=== PATIENT | female | born 1955 | race Caucasian/White ===

== ENCOUNTER 2017-06-11 05:34 | Observation (INO) | payer OTHER ==
[2017-06-02 11:40] VITALS: BMI 50.7
[2017-06-11 06:29] LABS: #Eosinphils 0.1 thou/uL (0.0-0.7); #Lymphocytes 1.6 thou/uL (1.20-3.40); #Monocytes 0.6 thou/uL (0.11-0.59); #Neutrophils 8.6 thou/uL (1.40-6.50); %Basophils 0.3 % (0.0-1.0); %Lymphocytes 14.7 % (21.0-51.0); %Monocytes 5.3 % (0.0-10.0); %Neutrophils 78.7 % (42.0-75.0); Hemoglobin 10.5 g/dL (12.0-16.0); Mean Corpuscular HGB CONC 32.6 g/dL (32.0-36.0); Mean Corpuscular Hemoglobin 29.7 pg (27.0-31.0); Mean Corpuscular Volume 91.2 fl (81.0-99.0); Mean Platelet Volume 8.9 fL (7.4-10.4); Platelet Count 174 thou/uL (130-400); RBC Distribution Width 13.5 % (11.5-14.5); Red Blood Cell (RBC) Count 3.55 mill/uL (4.20-5.40)
[2017-06-11] MEDS ORDERED: Diazepam 5 MG TAB ONE (06:30)
[2017-06-11 06:51] LABS: ALT (SGPT) 16 U/L (8-55); AST (SGOT) 12 U/L (5-34); Albumin 3.6 g/dL (3.5-5.0); Alkaline Phosphatase 98 U/L (40-150); Anion Gap 16 mmol/L (10-20); BUN (Urea Nitrogen) 37 mg/dL (9.8-20.1); Bilirubin, Total 0.4 mg/dL (0.2-1.2); Calc. Creatinine Clearance 103 mL/min (70-130); Calcium 9.4 mg/dL (7.8-10.44); Carbon Dioxide 22 mmol/L (22-29); Cardiac Risk 3.9 (Less than 4.5); Chloride 106 mmol/L (98-107); Cholesterol 93 mg/dl (< 200 Desired); Estimated GFR-MDRD 44; Globulin 3.9 g/dL (2.4-3.5); Glucose 114 mg/dL (70-105); HDL Cholesterol 24 mg/dL (>60 Neg Risk); LDL Cholesterol, Calculated 50 mg/dL; Potassium 4.1 mmol/L (3.5-5.1); Protein, Total 7.5 g/dL (6.0-8.3); Sodium 140 mmol/L (136-145); Triglycerides 97 mg/dL (Less than 150)
[2017-06-11] MEDS ORDERED: Nitroglycerin 100MG/250ML BOT 250 ML ONE (06:54)
[2017-06-11] MEDS ORDERED: Verapamil 5 MG/2 ML VIAL ONE (06:54)
[2017-06-11] MEDS ORDERED: Heparin 10,000 UNITS/1 ML VIAL ONE (06:54)
[2017-06-11] MEDS ORDERED: Midazolam HCl 2 mg/2 ml Vial ONE (07:31)
[2017-06-11] MEDS ORDERED: Fentanyl 100 MCG/2 ML VIAL ONE (07:37)
[2017-06-11] MEDS ORDERED: traMADol HCl 50 MG TAB PO PRN (08:38)
[2017-06-11] MEDS ORDERED: Sodium Chloride 0.9% 1,000 ML IV SCH (08:38)
[2017-06-11] MEDS ORDERED: Nitroglycerin 0.4 MG TAB (25 Tab Bottle) SL PRN (08:38)
[2017-06-11] MEDS ORDERED: Acetaminophen/Codeine 30-300mg Tablet PO PRN ×2 (08:38)
[2017-06-11] MEDS ORDERED: Ibuprofen 800 MG TAB PO PRN (08:44)
[2017-06-11] MEDS ORDERED: cloNIDine 0.1 MG TAB PO SCH (09:00)
[2017-06-11] MEDS ORDERED: JANUMET PO SCH (09:00)
[2017-06-11] MEDS ORDERED: Metoprolol Tartrate 25 MG TAB PO SCH (09:00)
[2017-06-11] MEDS ORDERED: Furosemide 80 MG TAB PO SCH (09:00)
[2017-06-11] MEDS ORDERED: Lisinopril 2.5 MG TAB PO SCH (09:00)
[2017-06-11 09:10] LABS: INR-International Normal Ratio 1.2; Prothrombin Time 15.2 SEC (12.0-14.7)
[2017-06-11 09:11] LABS: PTT 42.3 SEC (22.9-36.1)
[2017-06-11] MEDS ORDERED: Iopamidol 370 76% 100 ML VIAL ONE (11:44)
--- NOTE | 2017-06-11 12:47 | ULT ---
ULTRASOUND CAROTID DOPPLER STANDARD: HISTORY: Bilateral carotid ultrasound. Stroke. COMPARISON: None. TECHNIQUE: Real-time, viveros scale, color Doppler, and spectral analysis of the extracranial carotid and vertebral arteries was performed with a linear ray transducer. FINDINGS: There is mildly peak systolic velocity within the distal left internal carotid artery. Moderate athe rosclerotic plaque of both carotid bulbs as well as the distal left internal carotid artery. Antegra de flow of both vertebral arteries. IMPRESSION: 50-69% stenosis in the distal left internal carotid artery. CT angiogram may be beneficial. POS: [facility]
--- NOTE | 2017-06-11 13:10 | RAD ---
CHEST TWO VIEWS: History: Chest pain. FINDINGS: No comparison. The cardiac silhouette and pulmonary vasculature are unremarkable. Mediastinum is midl ine. There is no confluent airspace consolidation, pneumothorax, or pleural fluid apparent. IMPRESSION: 1. No active cardiopulmonary abnormalities are demonstrated. POS: [facility]
--- NOTE | 2017-06-11 13:27 | CON ---
DATE OF CONSULTATION: 06/11/2017 REQUESTING PHYSICIAN: Dr. Rodney Huizar. REASON FOR CONSULTATION: Coronary artery disease. HISTORY OF PRESENT ILLNESS: The patient is a 61-year-old morbidly obese diabetic woman who describes to me, presenting to the hospital in [place] January of last year with shortness of breath progr essing to a severe chest pain and pressure and being transferred from there to the [facility] for treatment of myocardial infarction. She describes undergoing stenting procedure which is cor roborated by Dr. Huizar's office note and her cardiac catheterization, although Dr. Huizar was able to elicit a history of dyspnea with mild activity. I was not able to elicit any history from he r of any chest pain, pressure or squeezing or any shortness of breath. In fact, they volunteered rosana t recently she carried her 29-pound grandson from the parking lot without any difficulty. Specifical ly, saying that she had no chest pain or any problems breathing. She does not describe any stress te sting. PAST MEDICAL HISTORY: Significant for diabetes and hypertension. HOME MEDICATIONS: Baby aspirin a day, Effient 10 mg a day which she has not taken today yet, Lopress or 25 mg b.i.d., Lisinopril 2.5 mg a day, Lasix 80 mg a day, clonidine 0.1 mg b.i.d., atorvastatin 40 mg at bedtime, sitagliptin/metformin (Janumet XR) 100/1000 mg 1 p.o. q.a.m., Tresiba (insulin deglud ec) 40 units subcu at bedtime and Motrin 800 mg p.o. b.i.d. ALLERGIES: She reports developing a rash with a PLAIN ADHESIVE TAPE, says that latex-based tape caus es her no problem. SOCIAL HISTORY: She does not smoke. FAMILY HISTORY: Significant for hypertension in her father. Her mother had diabetes and coronary di sease. Her brother has coronary artery disease. REVIEW OF SYSTEMS: Negative for any recent chest pain, pressure, squeezing, any recent shortness of breath, any orthopnea. Negative for any transient eye, speech, facial or extremity symptoms consiste nt with transient ischemic attacks, negative for any weight loss. Negative for any recent fevers, ch ills or cough. Positive for chronic lower extremity edema. PHYSICAL EXAMINATION: GENERAL: She is 5 foot 4. Weighs 297 pounds. VITAL SIGNS: Her heart rate is a sinus rhythm in the mid 70s, blood pressure is 146/52, and O2 satur ations are 100%. HEENT: She has no xanthelasma. NECK: No JVD. She has bilateral carotid bruits. LUNGS: Clear to auscultation. CARDIOVASCULAR: Regular rate and rhythm without any obvious murmur or gallop. ABDOMEN: Obese but soft and nontender. EXTREMITIES: Her right radial pulse has a pressure cuff on it. Status post radial approach for cath eterization. She has an easily palpable left radial pulse. José Miguel's testing bilaterally shows brisk refill of her fingertips with only ulnar flow. She has a palpable right dorsalis pedis, I was not ab le to appreciate the left dorsalis pedis or either posterior tibial. Her lower extremities are massi vely obese with mild to moderate degree of chronic swelling. She has a shallow open wound several ce ntimeters in length and diameter in her distal left pretibial region that is an excellent better gran ulation. She has spider-type varicosities at both ankles and feet. NEUROLOGIC: Grossly nonfocal. LABORATORY DATA: White count 11.0, hemoglobin 10.5, hematocrit 32.4, platelets 174,000. PT was 15.2 , INR 1.2, PTT 42.3, sodium 140, potassium 4.1, chloride 106, CO2 22, glucose 114, BUN 37, creatinine 1.24, bilirubin 0.4, alkaline phosphatase 98, AST 12, ALT 16, protein 7.5, albumin 3.6, and calcium 9.4. Triglycerides were 97, cholesterol 93, LDL 50, HDL 24. Her cardiac catheterization shows a rig ht dominant system with a long stent in the right coronary artery with a long 80% in-stent stenosis. She has a fairly large bifurcated posterolateral system coming off of the right. Her PDA is relativ aurora small and is diffusely diseased. Her distal left main has about 50% or perhaps 60% lesion that c rosses the bifurcation. The groove circumflex is small as is an obtuse marginal with some proximal d isease. Her LAD has some mild mid disease before a fairly good sized diagonal. After that the LAD g ets a little bit small, but seems to freely communicate with the diagonal. Aortic pressure on pullba ck was 134/59 with a mean of 89. LV pressure was 136/8 with EDP of 18. I did not find a ventriculog pieter, but an echocardiogram done at [facility] in January at the time of her IN, repor debbie mild concentric LVH with an LVEF of around 55%-60%, although they just described it being a techn ically difficult study. ASSESSMENT AND PLAN: The patient's morbid obesity and apparent venous stasis disease, probably pose the biggest challenge to this anatomically, she certainly has criteria for better longevity with morgan nary bypass surgery, then with the nonsurgical approach, but targets and conduit may be a challenge. I think her posterolateral branch coming off of her right should be graftable. Her obtuse marginal is a bit borderline. Her LAD is better, but may still be small, but freely communicates with the laine gonal should there be some problem with grafting the LAD. My preference would be to have her off of her Effient for around a week. I would like to check a carotid ultrasound because of her bruits and double check a chest x-ray in the meantime.
[2017-06-11] MEDS ORDERED: TRESIBA U SC SCH (21:00)
[2017-06-11] MEDS ORDERED: Atorvastatin Calcium 40 MG TAB PO SCH (21:00)
[2017-06-12] MEDS ORDERED: metFORMIN XR 500 MG TAB PO SCH (08:00)
[2017-06-12] MEDS ORDERED: Alogliptin 25 MG TAB PO SCH (09:00)
--- NOTE | 2017-06-13 00:18 | EKG ---
Test Reason : PREOP Blood Pressure : / mmHG Vent. Rate : 066 BPM Atrial Rate : 066 BPM P-R Int : 200 ms QRS Dur : 156 ms QT Int : 446 ms P-R-T Axes : -24 -12 058 degrees QTc Int : 467 ms Normal sinus rhythm Left bundle branch block Abnormal ECG No previous ECGs available Confirmed by Gabriel MINAYA ([id number]) on 06/13/2017 12:17:17 AM Referred By: [facility] Confirmed By:Gabriel MINAYA
== END 2017-06-11 13:31 | disposition home or self-care (01) ==
LOC: CCL 05:34 → INTOOBSV 08:34 → OBSVTOIN 08:34 → 2NO 08:34
PROVIDERS: ADMIT Internal Medicine Cardiovascular Disease; ATTEND Internal Medicine Cardiovascular Disease
PROC: 4A023N7 Measurement of Cardiac Sampling and Pressure, Left Heart, Percutaneous Approach (ICD-10-PCS; principal; 2017-06-11)
PROC: B2151ZZ Fluoroscopy of Left Heart using Low Osmolar Contrast (ICD-10-PCS; 2017-06-11)
DX: I25.10 Atherosclerotic heart disease of native coronary artery without angina pectoris (principal); E11.9 Type 2 diabetes mellitus without complications; I10 Essential (primary) hypertension; I25.2 Old myocardial infarction; E66.01 Morbid (severe) obesity due to excess calories; Z68.43 Body mass index [BMI] 50.0-59.9, adult; Z79.82 Long term (current) use of aspirin; Z79.02 Long term (current) use of antithrombotics/antiplatelets; Z79.4 Long term (current) use of insulin; Z79.899 Other long term (current) drug therapy; Z91.048 Other nonmedicinal substance allergy status; Z98.891 History of uterine scar from previous surgery; Z98.890 Other specified postprocedural states; Z82.49 Family history of ischemic heart disease and other diseases of the circulatory system
CPT/HCPCS: 71046; 80053; 80061; 85025; 85610; 85730; 93005; 93010; 93458; 93880; 99152; C1769; J1644; J2250; J3010

== ENCOUNTER 2017-06-20 10:54 | Outpatient (CLI) | payer OTHER | END 2017-06-20 10:55 | disposition home or self-care (01) | LOC: LABBT 10:54 | PROVIDERS: ATTEND Thoracic Surgery (Cardiothoracic Vascular Surgery) | DX: Z01.812 Encounter for preprocedural laboratory examination (principal) | CPT/HCPCS: 80048; 85027; 85610; 86850; 86900; 86901 ==

== ENCOUNTER 2017-06-20 11:00 | Inpatient (IN) | payer OTHER ==
[2017-06-20 12:16] LABS: Hemoglobin 10.2 g/dL (12.0-16.0); Mean Corpuscular Hemoglobin 29.8 pg (27.0-31.0); Mean Platelet Volume 8.2 fL (7.4-10.4); Platelet Count 279 thou/uL (130-400); RBC Distribution Width 13.5 % (11.5-14.5); Red Blood Cell (RBC) Count 3.41 mill/uL (4.20-5.40); White Blood Cell (WBC) Count 8.9 thou/uL (4.8-10.8)
[2017-06-20 12:17] LABS: INR-International Normal Ratio 1.2; Prothrombin Time 14.9 SEC (12.0-14.7)
[2017-06-20 12:51] LABS: Anion Gap 12 mmol/L (10-20); BUN (Urea Nitrogen) 32 mg/dL (9.8-20.1); Calc. Creatinine Clearance 0 mL/min (70-130); Calcium 9.5 mg/dL (7.8-10.44); Carbon Dioxide 27 mmol/L (22-29); Chloride 107 mmol/L (98-107); Estimated GFR-MDRD 47; Glucose 126 mg/dL (70-105); Potassium 5.1 mmol/L (3.5-5.1); Sodium 141 mmol/L (136-145)
[2017-06-23] MEDS ORDERED: Heparin 10,000 UNITS/1 ML VIAL 30,000 UNITS, Admixture Fee 1 EACH in Sodium Chloride 0.... IVPB SCH (06:45)
[2017-06-23] MEDS ORDERED: CEFAZOLIN 3 GM in Sodium Chloride 0.9% 100 ML IVPB SCH ×2 (06:45→07:30)
[2017-06-23] MEDS ORDERED: Albumin 5% 0 ML ONE (06:47)
[2017-06-23] MEDS ORDERED: Midazolam HCl 2 mg/2 ml Vial ONE (06:51)
[2017-06-23] MEDS ORDERED: Guaifenesin DM 100-10/5 ML UDCUP PO PRN (07:10)
[2017-06-23] MEDS ORDERED: Norepinephrine 8 MG/0.9% NS 250 ML IVPB PRN (07:10)
[2017-06-23] MEDS ORDERED: Hetastarch 6% 500 ML 500 ML IVPB PRN (07:10)
[2017-06-23] MEDS ORDERED: Fentanyl 100 MCG/2 ML VIAL SLOW IVP PRN ×2 (07:10)
[2017-06-23] MEDS ORDERED: Potassium Chloride 20 MEQ/100 ML PREMIX BAG IVPB PRN (07:10)
[2017-06-23] MEDS ORDERED: Mag-Al 1200 mg/1200 mg/30 ML UDCUP PO PRN (07:10)
[2017-06-23] MEDS ORDERED: Acetaminophen 325 MG TAB PO PRN (07:10)
[2017-06-23] MEDS ORDERED: hydrALAZINE 20 MG/ML VIAL SLOW IVP PRN (07:10)
[2017-06-23] MEDS ORDERED: Nitroglycerin 50 MG/250 ML BOT 250 ML IVPB PRN (07:10)
[2017-06-23] MEDS ORDERED: Bisacodyl 10 MG SUPP PR PRN (07:10)
[2017-06-23] MEDS ORDERED: Ondansetron HCl/PF 4 MG/2 ML Vial IVP PRN (07:10)
[2017-06-23] MEDS ORDERED: Bisacodyl 5 MG TAB PO PRN (07:10)
[2017-06-23] MEDS ORDERED: Post-Op Insulin Drip Protocol IVPB ONE (07:10)
[2017-06-23] MEDS ORDERED: Promethazine HCl 25 MG/ML VIAL IM PRN (07:10)
[2017-06-23] MEDS ORDERED: Midazolam HCl 5 mg/5 ml Vial ONE (07:16)
[2017-06-23] MEDS ORDERED: Vecuronium 10 MG VIAL ONE ×3 (07:17→14:58)
[2017-06-23] MEDS ORDERED: Fentanyl 100 MCG/2 ML VIAL ONE ×2 (07:18)
[2017-06-23] MEDS ORDERED: Vancomycin HCl 1 GM in Premix Bag 1 BAG IVPB SCH (07:30)
[2017-06-23] MEDS ORDERED: Dextrose 5% in Water 1,000 ML IV PRN (07:57)
[2017-06-23] MEDS ORDERED: Dextrose 50% Abboject 50 ML SYRINGE SLOW IVP PRN (07:57)
[2017-06-23] MEDS ORDERED: Insulin Regular 300 UNITS/3 ML VIAL SC PRN (07:57)
[2017-06-23] MEDS: CEFAZOLIN 1 GM, Syringe 2.5 ML in Sterile Water 7.5 ML SLOW IVP SCH ×3 (09:00→13:00)
[2017-06-23] MEDS ORDERED: Papaverine 60 MG/2 ML VIAL ONE ×2 (09:11→14:58)
[2017-06-23] MEDS: Sodium Chloride 0.9% 1,000 ML IV SCH ×2 (14:00→16:50)
[2017-06-23 14:06] LABS: #Basophils 0.1 thou/uL (0.0-0.2); #Eosinphils 0.1 thou/uL (0.0-0.7); #Lymphocytes 1.6 thou/uL (1.20-3.40); #Monocytes 1.1 thou/uL (0.11-0.59); #Neutrophils 16.7 thou/uL (1.40-6.50); %Basophils 0.6 % (0.0-1.0); %Eosinophils 0.4 % (0.0-10.0); %Lymphocytes 8.2 % (21.0-51.0); %Monocytes 5.4 % (0.0-10.0); %Neutrophils 85.3 % (42.0-75.0); Hemoglobin 10.4 g/dL (12.0-16.0); Mean Corpuscular HGB CONC 32.1 g/dL (32.0-36.0); Mean Corpuscular Hemoglobin 29.8 pg (27.0-31.0); Mean Platelet Volume 8.3 fL (7.4-10.4); Platelet Count 185 thou/uL (130-400); RBC Distribution Width 13.8 % (11.5-14.5); Red Blood Cell (RBC) Count 3.48 mill/uL (4.20-5.40); White Blood Cell (WBC) Count 19.6 thou/uL (4.8-10.8)
[2017-06-23 14:09] LABS: INR-International Normal Ratio 1.3; PTT 27.4 SEC (22.9-36.1); Prothrombin Time 16.6 SEC (12.0-14.7)
[2017-06-23 14:29] LABS: Anion Gap 10 mmol/L (10-20); BUN (Urea Nitrogen) 28 mg/dL (9.8-20.1); Calc. Creatinine Clearance 115 mL/min (70-130); Calcium 8.4 mg/dL (7.8-10.44); Carbon Dioxide 21 mmol/L (22-29); Chloride 111 mmol/L (98-107); Estimated GFR-MDRD 51; Glucose 185 mg/dL (70-105); Sodium 138 mmol/L (136-145)
[2017-06-23 14:32] LABS: Potassium 4.1 mmol/L (3.5-5.1)
[2017-06-23 14:48] LABS: Actual Bicarbonate (HCO3a) 19.4 mEq/L (22-26); Base Excess (BEa) -4.6 mEq/L (0 (+/-) 2.5); CO2 Tension 31.8 mmHg (35.0-45.0); Hematocrit-ABG 21.4 % (36.0-47.0); O2 Tension (PaO2) 173.2 mmHg (80.0-100.0)
[2017-06-23 14:49] LABS: Calcium, Ionized 1.2 mmol/L (1.12-1.30); Hemoglobin (Hb) 10.6 g/dL (12.0-16.0); Puncture Site ALINE
[2017-06-23] MEDS ORDERED: ePHEDrine/0.9% NaCl/PF SYRINGE 50 mg/10 ml ONE (14:58)
[2017-06-23] MEDS ORDERED: Cardioplegic Soln 1,000 ML BAG ONE (14:58)
[2017-06-23] MEDS ORDERED: Calcium Chloride 1 GM/10 ML Abboject SYRINGE ONE (14:58)
[2017-06-23] MEDS ORDERED: DOPamine 400 MG/10 ML VIAL ONE (14:58)
[2017-06-23] MEDS ORDERED: Potassium Chloride 60 MEQ/30 ML VIAL ONE (14:58)
[2017-06-23] MEDS ORDERED: Propofol 200 MG/20 ML VIAL ONE (14:58)
[2017-06-23] MEDS ORDERED: Protamine Sulfate 250 MG/25 ML VIAL ONE (14:58)
[2017-06-23] MEDS ORDERED: Lidocaine 2% PF 100 mg/5 ml Syringe ONE (14:58)
[2017-06-23] MEDS ORDERED: Heparin 5,000 UNITS/ML VIAL ONE (14:58)
[2017-06-23] MEDS ORDERED: Aminocaproic Acid 5 GM/20 ML VIAL ONE (14:58)
[2017-06-23] MEDS ORDERED: Magnesium 5 GM/10 ML VIAL ONE (14:58)
[2017-06-23] MEDS ORDERED: Sodium Bicarb 50 MEQ/50 ML VIAL ONE (14:58)
[2017-06-23] MEDS ORDERED: Heparin 30,000 units/30 ml VIAL ONE (14:58)
[2017-06-23] MEDS ORDERED: Esmolol 100 MG/10 ML VIAL ONE (14:58)
--- NOTE | 2017-06-23 15:13 | OP ---
DATE OF PROCEDURE: 06/23/2017 PROCEDURE PERFORMED: Coronary artery bypass grafting x3 with left internal mammary artery to the mid LAD, reverse greater saphenous vein graft from the aorta to the RCA/posterolateral branch and left radial artery from the malhotra of the right coronary system proximal anastomosis to the OM1. PREOPERATIVE DIAGNOSIS: Left main coronary artery disease. POSTOPERATIVE DIAGNOSIS: Left main coronary artery disease. SURGEON: Javi Matute M.D. BLENDER / COOK: Dr. Manolo Ward. ANESTHESIA: General endotracheal. INDICATIONS: The patient is a 61-year-old woman, who last fall had stenting of her right coronary system as a culprit vessel for an acute KS. She had some left main disease and in followup she was found to have high-grade restenosis of her right coronary system as well as significant left main disease. She is now taken to the operating room for revascularization. FINDINGS: The pump time 86 minutes, cross-clamp time 41 minutes. Good quality LOC and radial artery. The saphenous vein, harvested from the right lower leg, was rather tortuous, but it was of good size and quality. The LAD was about 1.5 mm vessel. The OM1 about 1.5-2 mm. The right coronary proper was 3-3.5 mm leading to about a 1.5-2 mm posterolateral branch. NARRATIVE REPORT: After informed consent was obtained, the patient was taken to the operating room and placed in supine position on the operating table. After the induction of general anesthesia, the patient's left upper chest prepped and draped in sterile fashion. She was placed in Trendelenburg, and by the Seldinger technique, a triple-lumen central line kit was used to place the left subclavian central line. All 3 ports easily aspirated and flushed. The line was secured. The patient's torso groins and lower extremities were prepped and draped in sterile fashion. After using ultrasound to examine the veins of the right lower extremity, as the patient is morbidly obese, has obvious venous stasis disease, and on the left lower extremity has very large venous stasis ulcer. What appeared to represent adequate saphenous vein in the lower leg on the right side was identified while an television production assistant harvested the greater saphenous vein from the right lower leg. I exposed the left radial artery and mobilized it from the wrist to near its origin from the brachial artery. The test occlusion of the radial artery proximally demonstrated good backbleeding by Doppler interrogation. The radial artery was doubly ligated and divided proximally, and there was a good backbleeding from this doubly ligated and divided distally. It was cannulated distally and distended with papaverine solution and inspected for adequacy of control of side branches and then placed papaverine-soaked sponge. A median sternotomy was performed. The left pleura was mobilized and the left LOC was mobilized as the pedicle from the level of xiphoid to the level of subclavian vein. The patient was heparinized. The mammary was ligated and divided distally. There was good flow through the mammary, which was instilled intraluminally with papaverine solution. The mammary bed was inspected for hemostasis. LOC retractor was placed. With a Gardner retractor, the pericardium was opened and marsupialized. The aorta was palpated and was soft. A double concentric pursestring of 2-0 Ethibond was placed in the ascending aorta just beyond the pericardial reflection and a single pursestring was placed in the right atrial appendage. Aortic and venous cannulae were inserted and secured by their pursestring. The plane between the aorta and the pulmonary artery was developed. Cardiopulmonary bypass was instituted and the patient was allowed to systemically cool. The heart was examined. The vessels to be bypassed were identified. A longitudinal slit was made in the pericardium anterior to the left phrenic nerve through which the mammary pedicle could be passed. The aorta was cross-clamped and cardioplegia was administered through an aortic root needle. When arrest had been achieved, the right coronary was exposed at the crux and opened with a Win[place] blade and [place] scissors extending the arteriotomy down onto the origin of the posterolateral branch. Reverse greater saphenous vein was anastomosed theirs end-to-side with running Prolene suture and the anastomosis tested by flushing blood down the graft. The obtuse marginal was then opened. The radial artery proximal end was freshened and slightly spatulated and anastomosed to the OM1 with running 7-0 Prolene. The LAD was then opened and the mammary was anastomosed to it with running 7-0 Prolene. The mammary pedicle was tacked to the epicardium. The aortic cross- clamp was placed with a partial occluding clamp and an aortotomy was made in the ascending aorta with a scalpel and punch incorporating the root needle site. The right coronary system graft was brought onto the right side of the heart and anastomosed to that aortotomy end-to-side with running Prolene. A longitudinal venotomy was made in the proximal malhotra of the right coronary system vein graft. The radial artery was trimmed to length and anastomosed there with running 7-0 Prolene. The partial occluding clamp was removed and the vein graft was deaired. The anastomoses were inspected for hemostasis. The posterior pericardial and left pleural drain was brought out through separate incisions and secured with suture. Right atrial and right ventricular temporary epicardial pacing wires were placed. The patient was then easily from cardiopulmonary bypass. Aortic and venous cannula removed and the pursestring secured. Protamine was administered. When hemostasis was adequate, an anterior mediastinal drain was placed. Mediastinal fat was tacked back together to cover up the aorta and the proximal portions of the grafts. The inferior medial aspects of the pericardium at the diaphragmatic level loosely tacked back together. The sternum was reapproximated with #7 stainless steel wires. The fascia was closed over the wires with heavy Vicryl. Subcutaneous tissue was irrigated and reapproximated and the skin was closed with Vicryl subcuticular stitch, which was then reinforced with a running nylon suture. The wounds were dressed and the patient was taken to the Intensive Care Unit in stable condition. NATHALIE
--- NOTE | 2017-06-23 15:22 | RAD ---
SINGLE VIEW OF THE CHEST: HISTORY: Status post open heart surgery. COMPARISON: 06/11/2017 FINDINGS: A single view of the chest shows an enlarged cardiomediastinal silhouette. The patient is status pos t sternotomy. An endotracheal tube is seen with its tip at the lower border of the clavicles. A marybeth tral venous catheter is seen with its tip in the superior vena cava. A left-sided chest tube is seen . No pneumothorax is seen. There is no evidence of consolidation, mass, or pleural effusion. IMPRESSION: Appropriate position of lines and tubes, status post sternotomy. POS: [facility]
[2017-06-23] MEDS: Aspirin 325 MG TAB PO SCH (16:50)
[2017-06-23] MEDS: Famotidine/PF 20 mg/2ml Vial SLOW IVP SCH ×2 (16:50→20:14)
[2017-06-23] MEDS ORDERED: Ketorolac Tromethamine 30 MG/ML VIAL IVP SCH (20:00)
[2017-06-23 20:21] LABS: Potassium 4.4 mmol/L (3.5-5.1)
[2017-06-23 20:32] LABS: Band 9 % (5-11); Hemoglobin 9.5 g/dL (12.0-16.0); Lymphocytes 2 % (21-51); MDiff Complete? YES; Mean Corpuscular HGB CONC 31.7 g/dL (32.0-36.0); Mean Corpuscular Hemoglobin 29.4 pg (27.0-31.0); Mean Corpuscular Volume 92.9 fl (81.0-99.0); Mean Platelet Volume 8.1 fL (7.4-10.4); Monocytes 1 % (0-10); Neutrophil 88 % (42-75); PLT Morphology Comment Appears Adequate; Platelet Count 224 thou/uL (130-400); RBC Distribution Width 13.7 % (11.5-14.5); Red Blood Cell (RBC) Count 3.21 mill/uL (4.20-5.40); White Blood Cell (WBC) Count 20.7 thou/uL (4.8-10.8)
[2017-06-23 21:21] LABS: Actual Bicarbonate (HCO3a) 20.5 mEq/L (22-26); CO2 Tension 34.5 mmHg (35.0-45.0); pH, Arterial 7.39 (7.35-7.45)
[2017-06-23 21:22] LABS: Base Excess (BEa) -3.9 mEq/L (0 (+/-) 2.5); Calcium, Ionized 1.2 mmol/L (1.12-1.30); Hematocrit-ABG 27.2 % (36.0-47.0); Hemoglobin (Hb) 9.1 g/dL (12.0-16.0)
[2017-06-23 21:23] LABS: ALV-art Gradient 51.275 (0-20); Analyzer IN Cardio ER; Puncture Site ALINE
[2017-06-23] MEDS: HYDROcodone/Acetaminophen 5/325 mg Tablet PO PRN (23:48)
[2017-06-24] MEDS ORDERED: Norepinephrine 8 MG in Sodium Chloride 0.9% 250 ML 250 ML IVPB PRN (01:22)
[2017-06-24 05:16] LABS: #Lymphocytes 1.2 thou/uL (1.20-3.40); #Monocytes 0.8 thou/uL (0.11-0.59); #Neutrophils 10.6 thou/uL (1.40-6.50); %Basophils 0.1 % (0.0-1.0); %Eosinophils 0.1 % (0.0-10.0); %Lymphocytes 9.4 % (21.0-51.0); %Monocytes 6.5 % (0.0-10.0); %Neutrophils 83.8 % (42.0-75.0); Mean Corpuscular HGB CONC 32.4 g/dL (32.0-36.0); Mean Corpuscular Hemoglobin 30.2 pg (27.0-31.0); Mean Corpuscular Volume 93.3 fl (81.0-99.0); Mean Platelet Volume 8.9 fL (7.4-10.4); Platelet Count 191 thou/uL (130-400); RBC Distribution Width 13.7 % (11.5-14.5); Red Blood Cell (RBC) Count 2.66 mill/uL (4.20-5.40); White Blood Cell (WBC) Count 12.6 thou/uL (4.8-10.8)
[2017-06-24 05:39] LABS: Anion Gap 9 mmol/L (10-20); BUN (Urea Nitrogen) 28 mg/dL (9.8-20.1); Calc. Creatinine Clearance 119 mL/min (70-130); Calcium 8.4 mg/dL (7.8-10.44); Carbon Dioxide 23 mmol/L (22-29); Chloride 113 mmol/L (98-107); Estimated GFR-MDRD 52; Glucose 101 mg/dL (70-105); Potassium 4.4 mmol/L (3.5-5.1); Sodium 141 mmol/L (136-145)
[2017-06-24] MEDS: Ketorolac Tromethamine 30 MG/ML VIAL IVP SCH ×3 (06:17→22:30)
--- NOTE | 2017-06-24 06:19 | EKG ---
Test Reason : POST CABG Blood Pressure : / mmHG Vent. Rate : 083 BPM Atrial Rate : 083 BPM P-R Int : 184 ms QRS Dur : 148 ms QT Int : 440 ms P-R-T Axes : 057 -22 128 degrees QTc Int : 517 ms Normal sinus rhythm Left bundle branch block Abnormal ECG When compared with ECG of 23-JUN-2017 07:06, (Unconfirmed) No significant change was found Confirmed by BASILIA DENNIS ([id number]) on 06/24/2017 6:19:25 AM Referred By: TARUN Confirmed By:BASILIA DENNIS
[2017-06-24] MEDS ORDERED: Furosemide 40 MG/4 ML VIAL SLOW IVP SCH (06:30)
--- NOTE | 2017-06-24 06:34 | EKG ---
Test Reason : PREOP Blood Pressure : / mmHG Vent. Rate : 075 BPM Atrial Rate : 075 BPM P-R Int : 192 ms QRS Dur : 154 ms QT Int : 428 ms P-R-T Axes : 014 -11 089 degrees QTc Int : 477 ms Normal sinus rhythm Left bundle branch block Abnormal ECG When compared with ECG of 11-JUN-2017 06:37, No significant change was found Confirmed by BASILIA DENNIS ([id number]) on 06/24/2017 6:34:33 AM Referred By: TARUN Confirmed By:BASILIA DENNIS
[2017-06-24] MEDS: HYDROcodone/Acetaminophen 5/325 mg Tablet PO PRN ×3 (07:11→19:40)
--- NOTE | 2017-06-24 08:32 | RAD ---
PORTABLE CHEST 1 VIEW: Date: 06/24/17 Time: 0513 hours HISTORY: Postop open heart surgery. FINDINGS/IMPRESSION: There has been interval removal of the endotracheal tube since the previous day's exam. Remainder of exam is otherwise stable. POS: [facility]
[2017-06-24] MEDS ORDERED: FLU VACC QS2017-18 36 mo. & older 0.5 ML SYRINGE IM ONE (09:00)
[2017-06-24] MEDS: Famotidine/PF 20 mg/2ml Vial SLOW IVP SCH (09:08)
[2017-06-24] MEDS: Aspirin 325 MG TAB PO SCH (09:08)
[2017-06-24] MEDS: Enoxaparin Sodium 40 MG/0.4 ML SYRINGE SC SCH (09:09)
[2017-06-24] MEDS: Sodium Chloride 0.9% 1,000 ML IV SCH ×2 (10:00→23:47)
[2017-06-24 12:42] VITALS: BMI 51.2
[2017-06-24] MEDS: HumaLOG 300 UNITS/3 ML VIAL SC PRN ×2 (18:42→21:30)
[2017-06-24] MEDS ORDERED: Mag-Al 1200 mg/1200 mg/30 ML UDCUP PO PRN (18:58)
[2017-06-24] MEDS ORDERED: Mineral Oil ENEMA PR PRN (18:58)
[2017-06-24] MEDS ORDERED: Bisacodyl 10 MG SUPP PR PRN (18:58)
[2017-06-24] MEDS ORDERED: Guaifenesin DM 100-10/5 ML UDCUP PO PRN (18:58)
[2017-06-24] MEDS ORDERED: Nitroglycerin 0.4 MG TAB 1 EACH SL PRN (18:58)
[2017-06-24] MEDS ORDERED: diphenhydrAMINE 25 MG CAP PO PRN (18:58)
[2017-06-24] MEDS ORDERED: Artificial Tears 18 DROP/0.9 ML EA EYE PRN (18:58)
[2017-06-24] MEDS ORDERED: Zolpidem Tartrate 5 MG TAB PO PRN (18:58)
[2017-06-24] MEDS ORDERED: Insulin Regular 300 UNITS/3 ML VIAL SC PRN (19:08)
[2017-06-24] MEDS ORDERED: Dextrose 5% in Water 1,000 ML IV PRN (19:08)
[2017-06-24] MEDS ORDERED: Dextrose 50% Abboject 50 ML SYRINGE SLOW IVP PRN (19:08)
[2017-06-24] MEDS: Atorvastatin Calcium 20 MG TAB PO SCH (19:42)
[2017-06-24] MEDS: Famotidine 20 MG TAB PO SCH (19:42)
[2017-06-24] MEDS ORDERED: Metoprolol Tartrate 25 MG TAB PO SCH (21:00)
--- NOTE | 2017-06-25 02:45 | CON ---
DATE OF CONSULTATION: 06/24/2017. Ms. Gomes is a 61-year-old female. She has undergone coronary bypass grafting by Dr. Matute yesterday. She had a PERRY to her LAD, a reversed saphenous vein graft to her right coronary artery posterolateral branch, and a left radial from the right coronary system proximal anastomosis to the OM1. She was subsequently extubated per protocol and has done well. She is really not complaining of much discomfort other than the site of her radial harvest. She has warm hands bilaterally with normal color. PAST MEDICAL HISTORY: Remarkable for diabetes and hypertension. SOCIAL HISTORY: She is a nonsmoker and nondrinker. She does not use drugs. FAMILY HISTORY: Noncontributory ALLERGIES: She reports no drug allergies. PAST SURGICAL HISTORY: Remarkable for coronary stenting and two C-sections. REVIEW OF SYSTEMS: Otherwise negative 12-point except for what was mentioned above. PHYSICAL EXAMINATION: GENERAL: She is in no distress. VITAL SIGNS: Blood pressure 117/44, heart rate is 93, respiratory rate is 18, oximetry is 100%. HEENT: Pupils are equal. Sclerae is anicteric. NECK: Supple. No lymphadenopathy. LUNGS: Clear anteriorly. HEART: Regular rhythm. S1 and S2 are normal. ABDOMEN: Soft and nontender. EXTREMITIES: Without asymmetry. Feet are warm. Hands are warm. LABORATORY DATA: White count is 12.6, hemoglobin 8, platelets 191,000. Sodium 141, potassium 4.4, chloride 113, bicarb 23, BUN 28, creatinine 1.07, glucose 101. PH last night prior to extubation 7.39, pCO2 of 34, pO2 of 190. Chest radiograph has been reviewed by me. There are no new infiltrates on her chest radiograph. IMPRESSION: Status post coronary bypass grafting, clinically doing well post- extubation. PLAN: Continue ICU care until tubes are out. She is ambulatory and can move to step-down unit. This is a 50-minute consult, greater than 50% of the time was spent on the unit coordinating care. NATHALIE
[2017-06-25 04:38] LABS: #Eosinphils 0.1 thou/uL (0.0-0.7); #Lymphocytes 1.7 thou/uL (1.20-3.40); #Monocytes 0.7 thou/uL (0.11-0.59); #Neutrophils 5.8 thou/uL (1.40-6.50); %Basophils 0.3 % (0.0-1.0); %Eosinophils 0.7 % (0.0-10.0); %Lymphocytes 20.4 % (21.0-51.0); %Monocytes 8.1 % (0.0-10.0); %Neutrophils 70.5 % (42.0-75.0); Hemoglobin 7.3 g/dL (12.0-16.0); Mean Corpuscular HGB CONC 31.7 g/dL (32.0-36.0); Mean Corpuscular Hemoglobin 29.8 pg (27.0-31.0); Mean Corpuscular Volume 94.2 fl (81.0-99.0); Mean Platelet Volume 8.3 fL (7.4-10.4); Platelet Count 147 thou/uL (130-400); RBC Distribution Width 13.9 % (11.5-14.5); Red Blood Cell (RBC) Count 2.45 mill/uL (4.20-5.40); White Blood Cell (WBC) Count 8.2 thou/uL (4.8-10.8)
[2017-06-25 04:49] LABS: Anion Gap 8 mmol/L (10-20); BUN (Urea Nitrogen) 31 mg/dL (9.8-20.1); Calc. Creatinine Clearance 105 mL/min (70-130); Calcium 8.5 mg/dL (7.8-10.44); Carbon Dioxide 26 mmol/L (22-29); Chloride 111 mmol/L (98-107); Estimated GFR-MDRD 45; Glucose 124 mg/dL (70-105); Potassium 4.7 mmol/L (3.5-5.1); Sodium 140 mmol/L (136-145)
[2017-06-25] MEDS: HYDROcodone/Acetaminophen 5/325 mg Tablet PO PRN ×3 (05:58→18:10)
[2017-06-25] MEDS: Ketorolac Tromethamine 30 MG/ML VIAL IVP SCH ×3 (05:59→20:52)
[2017-06-25] MEDS: HumaLOG 300 UNITS/3 ML VIAL SC PRN ×4 (06:24→21:25)
--- NOTE | 2017-06-25 08:30 | RAD ---
PORTABLE AP CHEST: Date: 06-25-17 History: Post open heart surgery. Comparison: 06-24-17 FINDINGS: The left sided thoracostomy tube has been removed. No pneumothorax is seen. Left subclavian central v enous catheter remains in place. Post-surgical changes related to CABG are again noted. Cardiac silho uette is enlarged. Pulmonary vasculature is within normal limits. There is minimal atelectasis at the left lung base. Lungs are otherwise clear. No other interval change. IMPRESSION: 1. Removal of the left sided thoracostomy tube without evidence of pneumothorax. 2. Cardiomegaly. 3. Moderate atelectasis left lung base. POS: [facility]
[2017-06-25] MEDS ORDERED: Furosemide 40 MG TAB PO SCH (09:00)
[2017-06-25] MEDS: Aspirin 325 mg Enteric Coated Tablet PO SCH (09:14)
[2017-06-25] MEDS: Famotidine 20 MG TAB PO SCH ×2 (09:14→20:52)
[2017-06-25] MEDS: Enoxaparin Sodium 40 MG/0.4 ML SYRINGE SC SCH (09:15)
[2017-06-25] MEDS: Metoprolol Tartrate 25 MG TAB PO SCH ×2 (09:18→20:52)
[2017-06-25] MEDS: Sodium Chloride 0.9% 1,000 ML IV SCH (13:56)
--- NOTE | 2017-06-25 17:52 | PRG ---
DATE OF SERVICE: 06/25/2017 SUBJECTIVE: Ms. Gomes did well overnight. She has no complaints. She denies chest discomfort. She denies arm discomfort today. OBJECTIVE: VITAL SIGNS: She is afebrile, heart rate is 83, respiratory rate is 20, oximetry is 98% to 100% on r oom air, blood pressure 155/64. LUNGS: Clear. HEART: Regular rhythm. ABDOMEN: Soft. LABORATORY DATA: White count is 8.2, hemoglobin 7.3, platelets 147,000. Sodium 140, potassium 4.7, chloride 111, bicarbonate 26, BUN 31, creatinine 1.22, glucose 124. IMPRESSION: Status post coronary bypass grafting, clinically stable. Chest radiograph was reviewed by me today, shows some patchy atelectatic changes at the left base. I suspect this is actually more small bloody postop effusion. We will continue with current care. She is stable to move out of Critical Care Unit. Chest tubes ar e out.
[2017-06-25] MEDS: Atorvastatin Calcium 20 MG TAB PO SCH (20:52)
[2017-06-26 05:04] LABS: #Eosinphils 0.1 thou/uL (0.0-0.7); #Lymphocytes 2.2 thou/uL (1.20-3.40); #Monocytes 0.7 thou/uL (0.11-0.59); #Neutrophils 6.4 thou/uL (1.40-6.50); %Basophils 0.5 % (0.0-1.0); %Eosinophils 1.3 % (0.0-10.0); %Lymphocytes 22.9 % (21.0-51.0); %Monocytes 7.8 % (0.0-10.0); %Neutrophils 67.5 % (42.0-75.0); Hemoglobin 9.3 g/dL (12.0-16.0); Mean Corpuscular HGB CONC 31.7 g/dL (32.0-36.0); Mean Corpuscular Hemoglobin 30.1 pg (27.0-31.0); Mean Corpuscular Volume 94.8 fl (81.0-99.0); Mean Platelet Volume 7.9 fL (7.4-10.4); Platelet Count 168 thou/uL (130-400); RBC Distribution Width 13.7 % (11.5-14.5); Red Blood Cell (RBC) Count 3.08 mill/uL (4.20-5.40); White Blood Cell (WBC) Count 9.5 thou/uL (4.8-10.8)
[2017-06-26 05:23] LABS: Anion Gap 12 mmol/L (10-20); BUN (Urea Nitrogen) 30 mg/dL (9.8-20.1); Calc. Creatinine Clearance 116 mL/min (70-130); Calcium 8.9 mg/dL (7.8-10.44); Carbon Dioxide 24 mmol/L (22-29); Chloride 110 mmol/L (98-107); Estimated GFR-MDRD 51; Glucose 156 mg/dL (70-105); Potassium 4.5 mmol/L (3.5-5.1); Sodium 141 mmol/L (136-145)
[2017-06-26] MEDS: Ketorolac Tromethamine 30 MG/ML VIAL IVP SCH ×3 (05:40→20:27)
[2017-06-26] MEDS: Aspirin 325 mg Enteric Coated Tablet PO SCH (09:54)
[2017-06-26] MEDS: Famotidine 20 MG TAB PO SCH ×2 (09:54→20:26)
[2017-06-26] MEDS: Metoprolol Tartrate 25 MG TAB PO SCH ×2 (09:55→20:26)
[2017-06-26] MEDS: Bisacodyl 5 MG TAB PO PRN ×2 (09:55→20:34)
[2017-06-26] MEDS: Enoxaparin Sodium 40 MG/0.4 ML SYRINGE SC SCH (09:57)
[2017-06-26] MEDS: HumaLOG 300 UNITS/3 ML VIAL SC PRN ×3 (13:00→21:47)
[2017-06-26] MEDS ORDERED: Metoprolol Tartrate 25 MG TAB PO SCH (17:32)
--- NOTE | 2017-06-26 19:01 | PRG ---
DATE OF SERVICE: 06/26/2017 SUBJECTIVE: Ms. Gomes has no complaints. She says she is feeling better. Her answered a ll of his questions. OBJECTIVE: VITAL SIGNS: Temperature is 99, heart rate 84, respiratory rate 16, oximetry is 100% on room air. B lood pressure got elevated this afternoon one time was 192/76, remainder of her blood pressures have been between 150 and 170s. I do not see any notes from the sleever. LUNGS: Clear. CARDIOVASCULAR: Regular rhythm. ABDOMEN: Soft. IMPRESSION: Hypertension, poorly controlled after coronary bypass grafting. We will increase her beta yakov and start her on an PJ inhibitor.
[2017-06-26] MEDS: Atorvastatin Calcium 20 MG TAB PO SCH (20:26)
[2017-06-26] MEDS: Lisinopril 5 MG TAB PO SCH (20:27)
[2017-06-27 04:42] LABS: #Basophils 0.1 thou/uL (0.0-0.2); #Eosinphils 0.1 thou/uL (0.0-0.7); #Lymphocytes 1.7 thou/uL (1.20-3.40); #Monocytes 0.5 thou/uL (0.11-0.59); #Neutrophils 5.6 thou/uL (1.40-6.50); %Basophils 0.7 % (0.0-1.0); %Eosinophils 1.5 % (0.0-10.0); %Lymphocytes 21.4 % (21.0-51.0); %Monocytes 6.7 % (0.0-10.0); %Neutrophils 69.8 % (42.0-75.0); Hemoglobin 8.6 g/dL (12.0-16.0); Mean Corpuscular HGB CONC 31.7 g/dL (32.0-36.0); Mean Corpuscular Volume 94.8 fl (81.0-99.0); Mean Platelet Volume 7.9 fL (7.4-10.4); Platelet Count 162 thou/uL (130-400); RBC Distribution Width 13.6 % (11.5-14.5); Red Blood Cell (RBC) Count 2.86 mill/uL (4.20-5.40)
[2017-06-27 04:57] LABS: Anion Gap 11 mmol/L (10-20); BUN (Urea Nitrogen) 22 mg/dL (9.8-20.1); Calc. Creatinine Clearance 135 mL/min (70-130); Calcium 8.7 mg/dL (7.8-10.44); Carbon Dioxide 24 mmol/L (22-29); Chloride 109 mmol/L (98-107); Estimated GFR-MDRD 60; Glucose 142 mg/dL (70-105); Potassium 4.6 mmol/L (3.5-5.1); Sodium 139 mmol/L (136-145)
[2017-06-27] MEDS: Ketorolac Tromethamine 30 MG/ML VIAL IVP SCH (06:52)
[2017-06-27] MEDS: Aspirin 325 mg Enteric Coated Tablet PO SCH (09:22)
[2017-06-27] MEDS: Famotidine 20 MG TAB PO SCH (09:23)
[2017-06-27] MEDS: Lisinopril 5 MG TAB PO SCH (09:24)
[2017-06-27] MEDS: Metoprolol Tartrate 25 MG TAB PO SCH (09:26)
[2017-06-27] MEDS: Enoxaparin Sodium 40 MG/0.4 ML SYRINGE SC SCH (09:31)
[2017-06-27 12:16] VITALS: TEMP 98.5
--- NOTE | 2017-06-27 12:56 | PRG ---
DATE OF SERVICE: 06/27/2017 Gillian Gomes has no complaints. PHYSICAL EXAMINATION: VITAL SIGNS: She is afebrile, heart rate 80. Blood pressure 150/85, respiratory rate 16, temperatur e % on room air. Blood pressure earlier this morning was elevated once, but most of her blood pressu res have been between 149 and 158 this morning. LUNGS: Clear. HEART: Regular rhythm. ABDOMEN: Soft. Intake and output is positive 1220 yesterday, positive 612 the day before. There is no intake and ou tput recorded. Her inferior most chest tube insertion site is weeping serosanguineous fluid, this wi ll be addressed by Cardiothoracic Surgery. Overall, she appears to be stable at this time.
[2017-06-27 13:51] VITALS: BP 156/74
--- NOTE | 2017-06-27 18:21 | DIS ---
DATE OF ADMISSION: 06/23/2017 DATE OF DISCHARGE: 06/27/2017 PRINCIPAL DIAGNOSIS: Coronary artery disease. SECONDARY DIAGNOSES: Morbid obesity, diabetes mellitus, hypertension, and venous stasis ulcer. PROCEDURES PERFORMED: Coronary artery bypass grafting x3 with left internal mammary artery to the LA D, left radial artery to the first obtuse marginal, reverse saphenous vein graft from the aorta to th e right coronary artery/posterolateral branch on 06/23/2017. HISTORY OF PRESENT ILLNESS/HOSPITAL COURSE: The patient is a 61-year-old diabetic woman who underwen t right coronary stenting last fall following a myocardial infarction. There was some suggestion of left main disease at the time of stenting of her culprit vessel and follow up investigation demonstra debbie a significant left main lesion as well as significant in-stent restenosis of her right coronary s ystem. She was taken off of her Effient, remained stable, and then was admitted for surgical revascu larization. She was extubated the night of surgery and weaned off of Levophed early that following m neema, that evening transfer orders to telemetry were submitted. As her blood pressure gradually ca me up, her preoperative antihypertensive regimen was incrementally reinstituted. She is now being di scharged home on postoperative day #4 to resume her normal home medicines and we will write a prescri ption for Vicodin as needed for pain. I will plan on seeing her in the office in around 10 days' farhat feldman
[2017-06-30 13:08] LABS: Base Excess (BEa) -1.1 mEq/L (0 (+/-) 2.5); CO2 Tension 35.7 mmHg (35.0-45.0); Hematocrit-ABG 29.1 % (36.0-47.0); Hemoglobin (Hb) 9.1 g/dL (12.0-16.0); O2 Tension (PaO2) 360.9 mmHg (80.0-100.0); pH, Arterial 7.43 (7.35-7.45)
[2017-06-30 13:09] LABS: Analyzer IN Cardio OR; Calcium, Ionized 1.2 mmol/L (1.12-1.30); Puncture Site ALINE
[2017-06-30 13:09] LABS: CO2 Tension 36.2 mmHg (35.0-45.0); pH, Arterial 7.43 (7.35-7.45)
[2017-06-30 13:10] LABS: Actual Bicarbonate (HCO3a) 23.3 mEq/L (22-26); Base Excess (BEa) -0.9 mEq/L (0 (+/-) 2.5); Hematocrit-ABG 25.8 % (36.0-47.0); Hemoglobin (Hb) 8.1 g/dL (12.0-16.0); O2 Tension (PaO2) 391.7 mmHg (80.0-100.0)
[2017-06-30 13:11] LABS: Analyzer IN Cardio OR; Calcium, Ionized 1.2 mmol/L (1.12-1.30); Puncture Site ALINE
[2017-06-30 13:12] LABS: CO2 Tension 34.5 mmHg (35.0-45.0); pH, Arterial 7.45 (7.35-7.45)
[2017-06-30 13:13] LABS: Actual Bicarbonate (HCO3a) 23.4 mEq/L (22-26); Base Excess (BEa) -0.5 mEq/L (0 (+/-) 2.5); Hematocrit-ABG 19.8 % (36.0-47.0); Hemoglobin (Hb) 6.8 g/dL (12.0-16.0); O2 Tension (PaO2) 526.2 mmHg (80.0-100.0)
[2017-06-30 13:14] LABS: Analyzer IN Cardio OR; Calcium, Ionized 1.1 mmol/L (1.12-1.30); Puncture Site ALINE
[2017-06-30 13:14] LABS: Actual Bicarbonate (HCO3v) 24 mEq/L (22-26); Analyzer IN Cardio OR; Base Excess -0.3 mEq/L (0 (+/- 2.5)); pH (venous) 7.41 (7.35-7.45)
[2017-06-30 13:15] LABS: Hematocrit-VBG 15.4 % (35-47); Hemoglobin (Hb) 6.2 g/dL (11.7-16.0); Sodium 138.7 mmol/L (133-146)
[2017-06-30 13:16] LABS: Calcium, Ionized 1.08 mmol/L (1.16-1.32); Chloride (ABG LAB) 105 mmol/L (98-106); Potassium - ABG Lab 4.2 mmol/L (3.70-5.30)
[2017-06-30 13:16] LABS: Actual Bicarbonate (HCO3a) 23.4 mEq/L (22-26); Base Excess (BEa) -1.3 mEq/L (0 (+/-) 2.5); CO2 Tension 38.6 mmHg (35.0-45.0); Hematocrit-ABG 22.2 % (36.0-47.0); Hemoglobin (Hb) 7.5 g/dL (12.0-16.0); O2 Tension (PaO2) 415.6 mmHg (80.0-100.0)
[2017-06-30 13:17] LABS: Analyzer IN Cardio OR; Calcium, Ionized 1.1 mmol/L (1.12-1.30); Puncture Site ALINE
[2017-06-30 13:18] LABS: Actual Bicarbonate (HCO3a) 21.6 mEq/L (22-26); CO2 Tension 36.9 mmHg (35.0-45.0); Hematocrit-ABG 26.8 % (36.0-47.0); Hemoglobin (Hb) 9.1 g/dL (12.0-16.0); O2 Tension (PaO2) 362.9 mmHg (80.0-100.0); pH, Arterial 7.39 (7.35-7.45)
[2017-06-30 13:19] LABS: Analyzer IN Cardio OR; Calcium, Ionized 1.2 mmol/L (1.12-1.30)
== END 2017-06-27 14:16 | disposition home or self-care (01) | DRG 236 ==
LOC: SURG A 06-23 05:41 → CCU 06-23 13:05 → 2SE 06-25 14:34
PROVIDERS: ADMIT Thoracic Surgery (Cardiothoracic Vascular Surgery); ATTEND Thoracic Surgery (Cardiothoracic Vascular Surgery)
PROC: 02100Z9 Bypass Coronary Artery, One Artery from Left Internal Mammary, Open Approach (ICD-10-PCS; principal; 2017-06-23)
PROC: 021109W Bypass Coronary Artery, Two Arteries from Aorta with Autologous Venous Tissue, Open Approach (ICD-10-PCS; 2017-06-23)
PROC: 06BP4ZZ Excision of Right Saphenous Vein, Percutaneous Endoscopic Approach (ICD-10-PCS; 2017-06-23)
PROC: 5A1221Z Performance of Cardiac Output, Continuous (ICD-10-PCS; 2017-06-23)
PROC: 02HV33Z Insertion of Infusion Device into Superior Vena Cava, Percutaneous Approach (ICD-10-PCS; 2017-06-23)
PROC: 30233N1 Transfusion of Nonautologous Red Blood Cells into Peripheral Vein, Percutaneous Approach (ICD-10-PCS; 2017-06-25)
DX: I25.10 Atherosclerotic heart disease of native coronary artery without angina pectoris (principal); Z68.43 Body mass index [BMI] 50.0-59.9, adult; E66.01 Morbid (severe) obesity due to excess calories; I83.223 Varicose veins of left lower extremity with both ulcer of ankle and inflammation; I83.213 Varicose veins of right lower extremity with both ulcer of ankle and inflammation; T82.855A Stenosis of coronary artery stent, initial encounter; L97.319 Non-pressure chronic ulcer of right ankle with unspecified severity; L97.329 Non-pressure chronic ulcer of left ankle with unspecified severity; I10 Essential (primary) hypertension; E11.9 Type 2 diabetes mellitus without complications; Z95.5 Presence of coronary angioplasty implant and graft; I25.2 Old myocardial infarction; Z82.49 Family history of ischemic heart disease and other diseases of the circulatory system; Y83.8 Other surgical procedures as the cause of abnormal reaction of the patient, or of later complication, without mention of misadventure at the time of the procedure
CPT/HCPCS: 36415; 36416; 36430; 71045; 80048; 82805; 85025; 85027; 85610; 85730; 86850; 86900; 86901; 90471; 90682; 93005; 93010; 93798; 94002; 94150; A4216; G0008; G8978-GP-CK; G8979-GP-CI; J0360; J0690; J1265; J1642; J1644; J1650; J1815; J1885; J1940; J2001; J2250; J2405; J2440; J2704; J2720; J3010; J3370; J3475; J3480; J7050; P9016; P9045; Q2036; S0017; S0028

== ENCOUNTER 2017-07-24 17:43 | Inpatient (IN) | payer OTHER ==
[~2017-07-24 17:43] MED LIST: Heparin 1,000 UNITS/ML VIAL ONE
[2017-07-24] MEDS ORDERED: Dextrose 50% Abboject 50 ML SYRINGE SLOW IVP PRN (18:29)
[2017-07-24] MEDS ORDERED: Dextrose 5% in Water 1,000 ML IV PRN (18:29)
[2017-07-24] MEDS ORDERED: oxyCODONE/Acetaminophen 5 mg/325 mg Tablet PO PRN (18:49)
[2017-07-24 19:47] LABS: #Lymphocytes 0.8 thou/uL (1.20-3.40); #Monocytes 0.7 thou/uL (0.11-0.59); #Neutrophils 6.6 thou/uL (1.40-6.50); %Basophils 0.2 % (0.0-1.0); %Eosinophils 0.3 % (0.0-10.0); %Lymphocytes 10.4 % (21.0-51.0); %Monocytes 8.2 % (0.0-10.0); Hemoglobin 7.5 g/dL (12.0-16.0); Mean Corpuscular HGB CONC 31.7 g/dL (32.0-36.0); Mean Corpuscular Hemoglobin 28.4 pg (27.0-31.0); Mean Corpuscular Volume 89.4 fl (81.0-99.0); Mean Platelet Volume 6.9 fL (7.4-10.4); Platelet Count 351 thou/uL (130-400); RBC Distribution Width 15.9 % (11.5-14.5); Red Blood Cell (RBC) Count 2.62 mill/uL (4.20-5.40); White Blood Cell (WBC) Count 8.1 thou/uL (4.8-10.8)
[2017-07-24 19:54] LABS: INR-International Normal Ratio 1.3; Prothrombin Time 16.2 SEC (12.0-14.7)
[2017-07-24 20:07] LABS: ALT (SGPT) 11 U/L (8-55); AST (SGOT) 9 U/L (5-34); Albumin 2.5 g/dL (3.5-5.0); Alkaline Phosphatase 111 U/L (40-150); Anion Gap 12 mmol/L (10-20); BUN (Urea Nitrogen) 41 mg/dL (9.8-20.1); Bilirubin, Total 0.4 mg/dL (0.2-1.2); Calc. Creatinine Clearance 105 mL/min (70-130); Calcium 8.8 mg/dL (7.8-10.44); Carbon Dioxide 23 mmol/L (22-29); Chloride 107 mmol/L (98-107); Estimated GFR-MDRD 45; Globulin 4.1 g/dL (2.4-3.5); Glucose 159 mg/dL (70-105); Potassium 5.2 mmol/L (3.5-5.1); Protein, Total 6.6 g/dL (6.0-8.3); Sodium 137 mmol/L (136-145)
[2017-07-24] MEDS ORDERED: Atorvastatin Calcium 40 MG TAB PO SCH (21:00)
[2017-07-24] MEDS ORDERED: Vancomycin HCl 1 GM in Premix Bag 1 BAG IVPB SCH (21:00)
--- NOTE | 2017-07-24 21:20 | RAD ---
CHEST TWO VIEW 07/24/17 HISTORY: Shortness of breath. COMPARISON: Chest one view 06/25/17. FINDINGS: On the lateral radiograph there is a small left layering pleural effusion. No pneumothorax. No focal air space consolidation. IMPRESSION: Small posterior left pleural effusion. POS: [facility]
[2017-07-24] MEDS: cloNIDine 0.1 MG TAB PO SCH (21:36)
[2017-07-24] MEDS: Metoprolol Tartrate 25 MG TAB PO SCH (21:36)
[2017-07-25] MEDS: Piperacillin/Tazobactam 3.375 GM in Sodium Chloride 0.9% 100 ML IVPB SCH ×4 (00:32→18:42)
[2017-07-25] MEDS ORDERED: Dextrose 5% in Water 1,000 ML IV PRN (06:58)
[2017-07-25] MEDS ORDERED: Eucerin (Mineral Oil/Petrolatum,White) 30 gm Jar TOP PRN (06:58)
[2017-07-25] MEDS ORDERED: Artificial Tears 18 DROP/0.9 ML EA EYE PRN (06:58)
[2017-07-25] MEDS ORDERED: Nitroglycerin 0.4 MG TAB (25 Tab Bottle) SL PRN (06:58)
[2017-07-25] MEDS ORDERED: Diabetic Tussin 200 MG/10 ML UDCUP PO PRN (06:58)
[2017-07-25] MEDS ORDERED: hydrALAZINE 20 MG/ML VIAL SLOW IVP PRN (06:58)
[2017-07-25] MEDS ORDERED: Ondansetron ODT 4 MG TAB PO PRN (06:58)
[2017-07-25] MEDS ORDERED: Sodium Chloride 0.65% Nasal 44 ML BOT EA NARE PRN (06:58)
[2017-07-25] MEDS ORDERED: Mag-Al 1200 mg/1200 mg/30 ML UDCUP PO PRN (06:58)
[2017-07-25] MEDS ORDERED: Ondansetron HCl/PF 4 MG/2 ML Vial IVP PRN (06:58)
[2017-07-25] MEDS ORDERED: Milk Of Magnesia 30 ML UDCUP PO PRN (06:58)
[2017-07-25] MEDS ORDERED: Chloraseptic Spray 180 ml Bottle PO PRN (06:58)
[2017-07-25] MEDS ORDERED: Senokot 8.6 MG TAB PO PRN (06:58)
[2017-07-25] MEDS: Metoprolol Tartrate 25 MG TAB PO SCH ×2 (07:42→20:16)
[2017-07-25] MEDS ORDERED: Morphine 5 mg/5 ml in 0.9% NaCl/PF SYRINGE IVP PRN (08:32)
[2017-07-25] MEDS ORDERED: Lisinopril 2.5 MG TAB PO SCH (09:00)
[2017-07-25] MEDS ORDERED: Furosemide 80 MG TAB PO SCH (09:00)
[2017-07-25] MEDS: Morphine 2 MG/ML SYRINGE SLOW IVP PRN ×2 (09:40→20:14)
--- NOTE | 2017-07-25 12:19 | HP ---
PRIMARY CARE PHYSICIAN: Dr. Limon. REASON FOR ADMISSION: Sternal wound infection. HISTORY OF PRESENT ILLNESS: A 61-year-old female who has underlying morbid obesity with BMI of 52 as well as underlying history of coronary artery disease , diabetes type 2, hypertension, dyslipidemia, who had recently cardiac catheterization on 06/19/2017 and the patient was found with left main disease as well as severe multivessel disease. The patient was referred for CABG. Dr. Matute did CABG on 06/23/2017. Subsequently, the patient was discharged to home on 06/27/2017. The patient had a followup visit with primary care physician and patient was found with a sternal wound infection as well as wound over lower extremity and that is why the patient had minor I&D on an outpatient basis, but the patient's wound was gradually day by day getting worse and it was draining foul smelling purulent material and that is why the patient's primary care physician admitted to [place] directly, but Hospitalist there when they saw this patient at that time, they decided to transfer the patient to our hospital for complicated wound care. The patient did not have any fever or chills, but she was having foul-smelling pus-like discharge from the sternal wound as well as lower extremity wound. This patient was yesterday, they gave us report around morning time, but unfortunately, this patient came to our hospital late evening and nobody saw this patient, but patient has received appropriate antibiotic therapy overnight and her home medication was also restarted. The patient was kept n.p.o. for possible surgery this morning. I saw this patient around morning time at 7. The patient did not have any complaints. She was stable and waiting for surgery. PAST MEDICAL HISTORY: 1. Coronary artery disease (left main and multivessel CAD, required CABG x3). 2. Hypertension. 3. Dyslipidemia. 4. Morbid obesity. PAST SURGICAL HISTORY: CABG x3. PAST PSYCHIATRIC HISTORY: Reviewed and negative. ALLERGIES: ADHESIVE. CURRENT HOME MEDICATIONS: Aspirin 81 mg 2 tablets twice daily, Lipitor 40 mg p.o. at bedtime, clonidine 0.1 mg p.o. b.i.d., Lasix 80 mg p.o. daily Tresiba 40 units subcu at bedtime, lisinopril 2.5 mg p.o. daily, metoprolol 25 mg p.o. b.i.d., Effient 10 mg p.o. daily, Januvia with metformin 100/1000 one tablet p.o. daily, ibuprofen on a p.r.n. basis. SOCIAL HISTORY: The patient is and lives at home with the family. No history of tobacco, alcohol or illicit drug abuse. FAMILY HISTORY: No strong family history of premature coronary artery disease, stroke or cancer. REVIEW OF SYSTEMS: The following complete review of systems was negative, unless otherwise mentioned in the HPI or below: Constitutional: Weight loss or gain, ability to conduct usual activities. Skin : Rash, itching. Eyes: Double vision, pain. ENT/Mouth: Nose bleeding, neck stiffness, pain, tenderness. Cardiovascular: Palpitations, dyspnea on exertion, orthopnea. Respiratory: Shortness of breath, wheezing, cough, hemoptysis, fever or night sweats. Gastrointestinal: Poor appetite, abdominal pain, heartburn, nausea, vomiting, constipation, or diarrhea. Genitourinary: Urgency, frequency, dysuria, nocturia. Musculoskeletal: Pain, swelling. Neurologic/Psychiatric: Anxiety, depression. Allergy/Immunologic: Skin rash, bleeding tendency. Please see my HPI for pertinent positive and negative. All other review of systems reviewed and negative except as mentioned in the HPI. PHYSICAL EXAMINATION: VITAL SIGNS: Currently, temperature 99.7, pulse 81, respiratory rate 22, saturation 95% on room air, blood pressure 130/60. Weight 301 pounds. GENERAL: The patient is currently alert, awake, no obvious acute distress. HEENT: Head is normocephalic, atraumatic. Eyes: Pupils round, reactive to light. Extraocular muscle intact. ENT: Oropharynx within normal limits. Moist mucous membranes, no oral lesion, no pharyngeal erythema, no exudate. NECK: Supple, no JVD, no thyromegaly, no carotid bruit. LUNGS: Clear to auscultation without any rhonchi or rales. CARDIAC: S1, S2 regular. No murmur, no gallop, no rub. ABDOMEN: Morbid obesity limiting examination. Bowel sounds present, nontender , nondistended. No organomegaly, no mass, no suprapubic tenderness. BACK: Unremarkable, no CVA tenderness. EXTREMITIES: Upper extremity passive movement of all joints are normal. Lower extremities; no edema. Good peripheral pulsation. SKIN: No skin rash. The patient does have a sternal wound which is draining purulent material, foul smelling discharge, open surgical wound as well as patient also has lower extremity wound. Please see wound care team finding and photographs taken during this admission. The patient also has a decubitus ulcer on the buttock as well. NEUROLOGIC: Nonfocal examination. The patient moves all 4 limbs. Plantar bilateral flexor. PSYCHIATRIC: Normal affect. SIGNIFICANT LABS: CBC: WBC 8.1, hemoglobin 7.5, platelet 351. INR 1.3. Sodium 137, potassium 5.2, chloride 107, carbon dioxide 23, anion gap 12, BUN 41 , creatinine 1.23, glucose 159, calcium 8.8. LFTs: AST 9, ALT 11, alkaline phosphatase was 111, albumin 2.5. color television console monitor showing normal sinus rhythm. Chest x-ray based on my review, small posterior left pleural effusion. ASSESSMENT AND PLAN: 1. Sternal wound infection. This patient has complicated open sternal wound dehiscence. Will requires I&D and possibly postoperative wound VAC application. I am suspecting Staph infection as well as gram negative and anaerobic infection. We will start vancomycin and Zosyn. Wound Care Team will be consulted. For pain control we will add morphine p.r.n. basis. 2. Sepsis likely due to underlying skin infection with a sternal wound infection as well as lower extremity wound infection and pressure ulcer. 3. Chronic kidney disease stage 3. Monitor renal function and avoid nephrotoxin agents. 4. Mild hyperkalemia. Monitor potassium. If potassium is getting worse then we will hold on lisinopril therapy. 5. Anemia, normocytic, normochromic. We will continue ferrous sulfate 325 mg p.o. daily, multivitamin therapy daily. 6. Diabetes type 2. We will continue aggressive sliding scale insulin as per protocol. Diabetic diet will be given. 7. Coronary artery disease with a history of coronary artery bypass graft. We will continue aspirin 162 mg b.i.d., Lipitor 40 mg p.o. at bedtime, Lisinopril 2.5 mg p.o. daily and metoprolol 25 mg p.o. b.i.d. 8. Ischemic cardiomyopathy. We will continue Lasix 80 mg p.o. daily. 9. Morbid obesity. Dietary education given, weight loss education given. Healthy lifestyle measures discussed with the patient. 10. Deep venous thrombosis prophylaxis. Lovenox 40 mg subcu daily. 11. Gastrointestinal prophylaxis, Pepcid 20 mg p.o. b.i.d. 12. Code status: The patient is full code. The patient's is surrogate decision maker. Disposition plan based on clinical course. We are expecting patient's stay in hospital more than 2 midnights. Plan of care discussed with the patient and family member at bedside on the floor. MTDD
[2017-07-25] MEDS: Saccharomyces boulardii 250 MG CAP PO SCH (12:23)
[2017-07-25] MEDS: Enoxaparin Sodium 40 MG/0.4 ML SYRINGE SC SCH (12:24)
[2017-07-25] MEDS: cloNIDine 0.1 MG TAB PO SCH ×2 (12:24→20:15)
[2017-07-25] MEDS: Famotidine 20 MG TAB PO SCH ×2 (12:24→20:15)
[2017-07-25] MEDS ORDERED: Fentanyl 250 MCG/5 ML VIAL ONE ×2 (14:04→16:26)
[2017-07-25] MEDS ORDERED: ePHEDrine/0.9% NaCl/PF SYRINGE 50 mg/10 ml ONE (14:29)
[2017-07-25] MEDS ORDERED: PHENYLEPHRINE-NS 100 MCG/ML 10 ML SYRINGE ONE (14:29)
[2017-07-25] MEDS ORDERED: Propofol 200 MG/20 ML VIAL ONE (14:29)
[2017-07-25] MEDS ORDERED: Succinylcholine Chloride 20 MG/ML 10 ml SYRINGE FS ONE (14:29)
[2017-07-25] MEDS ORDERED: Dextrose 5% in Water 1,000 ML IV SCH (17:00)
[2017-07-25] MEDS ORDERED: Ibuprofen 800 MG TAB PO PRN (17:04)
--- NOTE | 2017-07-25 17:35 | RAD ---
ONE VIEW CHEST: 07/25/17 COMPARISON: 07/24/17 and 06/25/17. HISTORY: Central line placement. FINDINGS: Left sided subclavian central venous catheter with the distal tip projecting over the superior vena c susana. Normal cardiac silhouette. Sternotomy wires are identified. Pulmonary vessels are slightly promi nent. No consolidation or mass. No osseous abnormalities. No pneumothorax. IMPRESSION: No pneumothorax. Left sided central venous catheter with the distal tip projecting over the superior vena cava. POS: [facility]
[2017-07-25] MEDS: Vancomycin HCl 2 GM, Admixture Fee 1 EACH in Sodium Chloride 0.9% 500 ML IVPB SCH (20:14)
[2017-07-25] MEDS: Atorvastatin Calcium 40 MG TAB PO SCH (20:16)
--- NOTE | 2017-07-25 20:39 | CON ---
DATE OF CONSULTATION: 07/24/2017 REQUESTING SERVICE: Hospitalist service. CHIEF COMPLAINT: Sternal wound infection. HISTORY OF PRESENT ILLNESS: The patient is a morbidly obese diabetic woman who is 61 years old. On 06/23/2017 she underwent coronary artery bypass grafting for left main coronary artery disease and restenosis of stent placed in her right coronary, which was felt to be a culprit vessel at the time of myocardial infarction a few months earlier. She did well in the immediate postoperative period and was discharged home in less than a week. At about the 2-week juan postoperatively, she was seen for the first time in the office on 07/10/2017, at that time she had developed dehiscence of the skin at about the level of the xiphoid as one makes the transition from chest to upper abdomen. It was a relatively small skin dehiscence about the size of a quarter. It tracted a few centimeters deep, there was some fibrinous exudate there and some necrotic fat, but it was otherwise clean. When she actively pulled her pendulous breasts apart to show me the incision, it slightly distracted skin a few centimeters above that, but there is no overt tracking from the open epigastric wound superiorly. Arrangements were made at that time to have a wound VAC applied, but because of the distance, the patient would have to travel to have that done locally she preferred to have it done closer to home in the [facility], where she previously had a wound VAC on her leg taking care of. I showed her and her , how to pack the wound for the period of time it would take to arrange that with the expectation that it would be done the next day or the following Friday if not. The next, I heard back about the patient was this morning, when the nurse practitioner from one of the clinics there said that she was admitting her with a wound infection and that there was no wound VAC in place. It took several hours to arrange transportation and I saw her upon her arrival at about 6:30. She told me that the wound VAC never been applied. In speaking with her as well I pieced together that one physician was not willing to address the wound VAC, another physician there was willing to consider it, but the determination wound up being made to wait until I had seen her again for her next appointment, which was set up for today. In the meantime , the wound had dramatically increased in size two other areas had opened up with with skin bridges in between them. The drainage was foul smelling and purulent and when questioned about this, the patient simply said that she had been packing the wound, the way I had shown her. I did not challenge her on why she had not contacted me about the wound worsening so much. She denied any fever or chills. She denied any shortness of breath, although she looked a bit short of breath. PAST MEDICAL HISTORY: Also significant for diabetes and hypertension. HOME MEDICATIONS: Effient 10 mg a day, baby aspirin a day, Lopressor 25 mg b.i.d., lisinopril 2.5 mg a day, Lasix 80 mg a day, clonidine 0.1 mg b.i.d., Lipitor 40 mg at bedtime, Janumet XR 100/1000 mg 1 tablet q.a.m., insulin degludec (Tresiba) 4 units subcutaneously at bedtime, and Motrin 800 mg b.i.d. ALLERGIES: She reports developing a rash with some ADHESIVE TAPES, but otherwise has no medical or food allergies. SOCIAL HISTORY: She does not smoke. FAMILY HISTORY: Significant for her father having hypertension, her mother having diabetes and coronary artery disease. Her brother has coronary artery disease. REVIEW OF SYSTEMS: Negative for any fever or chills. Negative for any cough. She denies any shortness of breath. PHYSICAL EXAMINATION: GENERAL: She is a morbidly obese woman with a soaked foul smelling dressing, essentially just covering, gaping sternotomy wound, fibrinous exudate, purulent material, and necrotic fat are visible within the wound. Wires palpable through at least one of the wounds. VITAL SIGNS: Her temperature is 98.3, heart rate is 95, blood pressure 174/75, room air O2 sats are 99%. LUNGS: She has clear breath sounds and regular rate and rhythm. The wound is as described above. There is no gross instability of the sternum. ABDOMEN: Obese, soft, and nontender. There is some eschar around her right lower leg vein harvest incisions. She has venous stasis ulcer on her left lower leg that previously it had a good better granulation on it, but now has a lot of adherent fibrinous exudate. She has no clubbing, cyanosis, or edema. LABORATORY DATA: Showed a white count of 8.1, hemoglobin 7.5, hematocrit 23.5, platelets 351,000. Electrolytes were normal with minimally elevated potassium at 5.2, BUN is 41, creatinine 1.23, glucose 159, albumin 2.5. Her chest x-ray shows no gross deformity of her sternal wires or any broken wires. She has no obvious effusions. IMPRESSION AND RECOMMENDATIONS: An extensive at least superficial sternal wound infection. Clinically, the patient is not septic, does not really have any cellulitic changes, but at least one sternal wire is readily palpable within the wound. I am going to go ahead and start her on broad-spectrum antibiotics, pending wound cultures and will plan on an exam under anesthesia with some sort of irrigation and debridement of the wound in the morning. NATHALIE
[2017-07-25] MEDS ORDERED: TRESIBA U SC SCH (21:00)
[2017-07-25] MEDS ORDERED: INSULIN DEGLUDEC 40 UNIT SC SCH (21:00)
[2017-07-26] MEDS: Piperacillin/Tazobactam 3.375 GM in Sodium Chloride 0.9% 100 ML IVPB SCH ×4 (00:08→17:34)
--- NOTE | 2017-07-26 00:11 | OP ---
DATE OF PROCEDURE: 07/25/2017 PROCEDURES PERFORMED: Sternal wound debridement with wound VAC application and left subclavian centr al line placement. PREOPERATIVE DIAGNOSIS: Sternal wound infection. POSTOPERATIVE DIAGNOSIS: Superficial sternal wound infection. SURGEON: Javi Matute MD ANESTHESIA: General endotracheal anesthesia. INDICATIONS: The patient is a 61-year-old morbidly obese diabetic woman, who just over a month ago u nderwent coronary artery bypass grafting. Her first postop visit a little over 2 weeks ago. She had a small area of dehiscence at the epigastrium with a small cavity and some fat necrosis, but no puru lence. Arrangements were made for wound VAC application at that time that did not come to fruition. In the intervening time, her wound dramatically expanded and began draining foul smelling purulent f luid, and I was first contacted about this upon her admission in [place], and she was transferred he re for treatment. FINDINGS: Final wound dimension is 21 cm long, 8.5 cm wide, and 4 cm deep. Once fibrinous exudate h ad been debrided away, there is granulating tissue, underlying it there was some necrotic fascia and muscles mid body of the sternum. All of the sternal wires were somewhat loose and were tightened. T here was one wire in the mid body of the sternum that had nearly pulled through the left plate. All three of the manubrial wires had pulled through. NARRATIVE REPORT: After informed consent was obtained, the patient was taken to the operating room a nd placed in supine position on the operating table. After induction of general anesthesia, the abena ent's left upper chest was prepped and draped in sterile fashion. A triple-lumen central line kit wa s used to place a left subclavian central line by the Seldinger technique for secure IV access intra and perioperatively. All three ports easily aspirated and flushed. The line was secured to the skin with suture and dressed. The patient's torso was then prepped and draped in sterile fashion using a n Ioban to doubly isolate the wound from the central line. Knife and electrocautery were used to div mo skin bridges and to unroof the superior aspect of the wound. Because upon probing the wound, it could readily be appreciated and had undermined the skin all the way up to the sternal notch. Scisso rs and a curet were used to debride the fat and fascia. A knife was used to freshen up some areas of the skin where eschar was adherent. The sternal wires were examined. The loose wires were tightene d. The manubrial wires had pulled through, and they were cut and removed. Rongeurs were used to juaquin ride away the fragments of the manubrium along with swab of the soft tissue were sent for culture. T hree liters of sterile irrigant were then used to irrigate the wound using a Pulsavac device and then the wound care team applied a wound VAC. The patient was taken to the recovery area in stable condi tion.
[2017-07-26 01:22] LABS: Bilirubin Negative (Negative); Blood, Urine Negative (Negative); Clarity CLOUDY (Clear); Glucose, Urine (Dipstick) Negative (Negative); Leukocyte Small (Negative); Nitrite Negative (Negative); Protein, Urine (Dipstick) Trace mg/dL (Neg-Trace); Specific Gravity, Urine 1.026 (1.002-1.036); pH, Urine 5.5 (5.0-9.0)
[2017-07-26 01:25] LABS: Bacteria/HPF None Seen HPF (None Seen); Hyaline Casts/LPF 0-3 HYALINE CAST LPF (0-3 Hyaline); Pathc Cast-AUWi Flag 0.81 (0-2.49); RBC/HPF 0-3 HPF (0-3)
[2017-07-26 05:16] LABS: #Eosinphils 0.1 thou/uL (0.0-0.7); #Lymphocytes 1.3 thou/uL (1.20-3.40); #Monocytes 0.7 thou/uL (0.11-0.59); #Neutrophils 4.9 thou/uL (1.40-6.50); %Basophils 0.4 % (0.0-1.0); %Eosinophils 1.1 % (0.0-10.0); %Lymphocytes 18.5 % (21.0-51.0); %Monocytes 10.3 % (0.0-10.0); %Neutrophils 69.8 % (42.0-75.0); Hemoglobin 7.6 g/dL (12.0-16.0); Mean Corpuscular HGB CONC 31.6 g/dL (32.0-36.0); Mean Corpuscular Hemoglobin 27.8 pg (27.0-31.0); Mean Corpuscular Volume 88.1 fl (81.0-99.0); Mean Platelet Volume 7.1 fL (7.4-10.4); Platelet Count 308 thou/uL (130-400); RBC Distribution Width 16.6 % (11.5-14.5); Red Blood Cell (RBC) Count 2.75 mill/uL (4.20-5.40); White Blood Cell (WBC) Count 7.1 thou/uL (4.8-10.8)
[2017-07-26 05:31] LABS: ALT (SGPT) 10 U/L (8-55); AST (SGOT) 11 U/L (5-34); Albumin 2.1 g/dL (3.5-5.0); Alkaline Phosphatase 103 U/L (40-150); Anion Gap 9 mmol/L (10-20); BUN (Urea Nitrogen) 27 mg/dL (9.8-20.1); Bilirubin, Total 0.6 mg/dL (0.2-1.2); Calc. Creatinine Clearance 119 mL/min (70-130); Calcium 8.1 mg/dL (7.8-10.44); Carbon Dioxide 24 mmol/L (22-29); Chloride 109 mmol/L (98-107); Estimated GFR-MDRD 52; Globulin 3.6 g/dL (2.4-3.5); Glucose 168 mg/dL (70-105); Potassium 5.3 mmol/L (3.5-5.1); Protein, Total 5.7 g/dL (6.0-8.3); Sodium 137 mmol/L (136-145)
[2017-07-26] MEDS ORDERED: METFORMIN HCL PO SCH (08:00)
[2017-07-26] MEDS ORDERED: SITAGLIPTIN PHOS PO SCH (08:00)
[2017-07-26] MEDS ORDERED: JANUMET PO SCH (08:00)
--- NOTE | 2017-07-26 09:12 | PDOC.PN ---
- Subjective Encounter Start Date: 07/26/17 Encounter Start Time: 07:30 -: old records requested/rev pt is doing well after surgery, wound vac in place Patient seen and examined. No new complaints. No overnight events - Objective Resuscitation Status: Resuscitation Status FULL:Full Resuscitation MAR Reviewed: Yes Vital Signs & Weight: Vital Signs (12 hours) Temp Pulse Resp BP Pulse Ox 07/26/17 07:23 99.2 F 75 17 141/65 H 96 07/26/17 05:40 94 L 07/26/17 04:00 99.6 F 74 18 137/65 95 07/25/17 23:56 118/56 L Weight Admit Weight 301 lb 9 oz Weight 297 lb 1.6 oz I&O: 07/25/17 07/26/17 07/27/17 06:59 06:59 07:59 Intake Total 1120 950 Output Total 800 850 Balance 320 100 Result Diagrams: 07/26/17 04:51 07/26/17 04:51 Additional Labs: Accuchecks 07/26/17 07/25/17 07/25/17 05:44 18:10 11:10 POC Glucose 166 H 108 212 H EKG Reviewed by me: Yes (nsr) Phys Exam - Physical Examination Constitutional: NAD HEENT: PERRLA, moist MMs, sclera anicteric Neck: no JVD, supple Respiratory: no wheezing, no rales, no rhonchi Cardiovascular: RRR, no significant murmur, no rub wound vac in place Gastrointestinal: soft, non-tender, no distention, positive bowel sounds Musculoskeletal: pulses present, edema present wound with dressing Neurological: non-focal, normal sensation, moves all 4 limbs Lymphatic: no nodes Psychiatric: normal affect, A&O x 3 Skin: no rash, normal turgor Dx/Plan (1) Sternal wound infection Code(s): SAB4496 - Status: Acute (2) Sepsis Code(s): A41.9 - SEPSIS, UNSPECIFIED ORGANISM Status: Acute (3) Hyperkalemia Code(s): E87.5 - HYPERKALEMIA Status: Acute Comment: mild (4) Ischemic cardiomyopathy Code(s): I25.5 - ISCHEMIC CARDIOMYOPATHY Status: Chronic (5) Anemia, normocytic normochromic Code(s): D64.9 - ANEMIA, UNSPECIFIED Status: Chronic (6) CAD (coronary artery disease) Code(s): I25.10 - ATHSCL HEART DISEASE OF [place] CORONARY ARTERY W/O ANG PCTRS Status: Chronic (7) Diabetes type 2, controlled Code(s): E11.9 - TYPE 2 DIABETES MELLITUS WITHOUT COMPLICATIONS Status: Chronic (8) Dyslipidemia Code(s): E78.5 - HYPERLIPIDEMIA, UNSPECIFIED Status: Chronic (9) Hypertension Code(s): I10 - ESSENTIAL (PRIMARY) HYPERTENSION Status: Chronic (10) Morbid obesity with BMI of 45.0-49.9, adult Code(s): E66.01 - MORBID (SEVERE) OBESITY DUE TO EXCESS CALORIES; Z68.42 - BODY MASS INDEX (BMI) 45.0-49.9, ADULT Status: Chronic (11) CKD (chronic kidney disease) stage 3, GFR 30-59 ml/min Code(s): N18.3 - CHRONIC KIDNEY DISEASE, STAGE 3 (MODERATE) Status: Chronic - Plan cont current plan of care, plan discussed w/ family, continue antibiotics * continue vancomycin and zosyn * follow culture result * medication reviewed as below * symptomatic treatment * wound care with wound vac * pain control * discussed with family bedside * get echo and BNP checked. * monitor potassium, DC ibuprofen Review of Systems - Review of Systems Constitutional: negative: fever, chills, sweats, weakness, malaise, other Eyes: negative: Pain, Vision Change, Conjunctivae Inflammation, Eyelid Inflammation, Redness, Other ENT: negative: Ear Pain, Ear Discharge, Nose Pain, Nose Discharge, Nose Congestion, Mouth Pain, Mouth Swelling, Throat Pain, Throat Swelling, Other Respiratory: negative: Cough, Dry, Shortness of Breath, Hemoptysis, SOB with Excertion, Pleuritic Pain, Sputum, Wheezing Cardiovascular: negative: chest pain, palpitations, orthopnea, paroxysmal nocturnal dyspnea, edema, light headedness, other Gastrointestinal: negative: Nausea, Vomiting, Abdominal Pain, Diarrhea, Constipation, Melena, Hematochezia, Other Genitourinary: negative: Dysuria, Frequency, Incontinence, Hematuria, Retention , Other Musculoskeletal: negative: Neck Pain, Shoulder Pain, Arm Pain, Back Pain, Hand Pain, Leg Pain, Foot Pain, Other Skin: negative: Rash, Lesions, Kelvin, Bruising, Other - Medications/Allergies Allergies/Adverse Reactions: Allergies Allergy/AdvReac Type Severity Reaction Status Date / Time adhesive Allergy Verified 07/24/17 22:46 Medications: Current Medications Acetaminophen (Tylenol) 650 mg PO Q4H PRN PRN Reason: Headache/Fever or Pain Hydrocodone Bitart/Acetaminophen ([place] 5/325) 1 tab PO Q4H PRN PRN Reason: Moderate Pain (4-6) Al Hydroxide/Mg Hydroxide (Maalox) 30 ml PO Q6H PRN PRN Reason: Heartburn or Indigestion Alogliptin Benzoate (Alogliptin) 25 mg PO QAM[facility] Artificial Tears (Tears Naturale) 0 drop EA EYE PRN PRN PRN Reason: Dry Eyes Aspirin (Aspirin Chewable) 162 mg PO BID [facility] Last Admin: 07/25/17 20:15 Dose: 162 mg Atorvastatin Calcium (Lipitor) 40 mg PO HS [facility] Last Admin: 07/25/17 20:16 Dose: 40 mg Clonidine (Catapres) 0.1 mg PO BID [facility] Last Admin: 07/25/17 20:15 Dose: 0.1 mg Dextrose/Water (Dextrose 50%) 25 gm SLOW IVP PRN PRN PRN Reason: Hypoglycemia Enoxaparin Sodium (Lovenox) 40 mg SC 0900 [facility] Last Admin: 07/25/17 12:24 Dose: Not Given Famotidine (Pepcid) 20 mg PO BID [facility] Last Admin: 07/25/17 20:15 Dose: 20 mg Furosemide (Lasix) 80 mg PO DAILY [facility] Glucagon (Glucagon) 1 mg IM PRN PRN PRN Reason: Hypoglycemia Guaifenesin (Robitussin Sf) 200 mg PO Q4H PRN PRN Reason: Cough Hydralazine HCl (Apresoline) 10 mg SLOW IVP Q4H PRN PRN Reason: Systolic BP > 180 Piperacillin Sod/Tazobactam (Sod 3.375 gm/ Sodium Chloride) 100 mls @ 200 mls/ hr IVPB Q6HR [facility] Last Admin: 07/26/17 05:21 Dose: 100 mls Dextrose/Water (D5w) 1,000 mls @ 0 mls/hr IV .Q0M PRN; As Directed PRN Reason: Hypoglycemia Vancomycin HCl 2 gm/Miscellaneous Medication 1 each/ Sodium Chloride 500 mls @ 250 mls/hr IVPB Q24HR [facility] Last Admin: 07/25/17 20:14 Dose: 500 mls Ibuprofen (Motrin) 800 mg PO BIDPRN PRN PRN Reason: Pain Insulin Human Regular (Humulin R) 0 units SC .AGGRESSIVE SLIDING PRN PRN Reason: Aggressive Sliding Scale Lisinopril (Zestril) 2.5 mg PO DAILY [facility] Loperamide HCl (Imodium) 2 mg PO PRN PRN PRN Reason: Diarrhea/Loose Stools Loratadine (Claritin) 10 mg PO DAILYPRN PRN PRN Reason: Sinus Symptoms Magnesium Hydroxide (Milk Of Magnesium) 30 ml PO DAILYPRN PRN PRN Reason: Constipation Metformin HCl (Glucophage Xr) 1,000 mg PO QAM-[facility] Metoprolol Tartrate (Lopressor) 25 mg PO BID [facility] Last Admin: 07/25/17 20:16 Dose: 25 mg Mineral Oil/White Petrolatum (Eucerin Cream) 0 gm TOP BIDPRN PRN PRN Reason: Dry Skin Miscellaneous Medication (Pharmacy To Dose) 1 each IVPB ASDIR [facility] Morphine Sulfate (Morphine) 2 mg SLOW IVP Q4H PRN PRN Reason: Pain Last Admin: 07/25/17 20:14 Dose: 2 mg Nitroglycerin (Nitrostat) 0.4 mg SL Q5MIN PRN PRN Reason: Chest Pain Ondansetron HCl (Zofran Odt) 4 mg PO Q6H PRN PRN Reason: Nausea/Vomiting Oxycodone/Acetaminophen (Percocet 5/325) 1 tab PO Q4H PRN PRN Reason: Mild-Moderate Pain (1-5) Oxycodone/Acetaminophen (Percocet 5/325) 2 tab PO Q4H PRN PRN Reason: Moderate to Severe Pain (6-10) [Tresiba Flextouch U (-100] 40 Units) 0 each SC HS [facility] Phenol (Chloraseptic [place] 180 Ml Bot) 0 ml PO PRN PRN PRN Reason: Sore Throat Prasugrel (Effient) 10 mg PO DAILY [facility] Saccharomyces Boulardii (Florastor) 250 mg PO DAILY [facility] Last Admin: 07/25/17 12:23 Dose: Not Given Senna (Senokot) 2 tab PO HSPRN PRN PRN Reason: Constipation Sodium Chloride (Flush - Normal Saline) 10 ml IVF Q12HR [facility] Last Admin: 07/25/17 20:16 Dose: 10 ml Sodium Chloride (Flush - Normal Saline) 10 ml IVF PRN PRN PRN Reason: Saline Flush Sodium Chloride ([place] Nasal [place] 0.65%) 0 ml EA NARE QIDPRN PRN PRN Reason: Nasal Congestion
[2017-07-26] MEDS: Lisinopril 2.5 MG TAB PO SCH (09:46)
[2017-07-26] MEDS: Furosemide 80 MG TAB PO SCH (09:47)
[2017-07-26] MEDS: Saccharomyces boulardii 250 MG CAP PO SCH (09:47)
[2017-07-26] MEDS: Metoprolol Tartrate 25 MG TAB PO SCH ×2 (09:47→20:49)
[2017-07-26] MEDS: cloNIDine 0.1 MG TAB PO SCH ×2 (09:49→20:48)
[2017-07-26] MEDS: Prasugrel 10 MG TAB PO SCH (09:50)
[2017-07-26] MEDS: Famotidine 20 MG TAB PO SCH ×2 (09:50→20:49)
[2017-07-26] MEDS: metFORMIN XR 500 MG TAB PO SCH (09:50)
[2017-07-26] MEDS: Morphine 2 MG/ML SYRINGE SLOW IVP PRN (09:50)
[2017-07-26] MEDS: Enoxaparin Sodium 40 MG/0.4 ML SYRINGE SC SCH (09:50)
[2017-07-26] MEDS: Alogliptin 25 MG TAB PO SCH (09:51)
[2017-07-26] MEDS ORDERED: Lidocaine 4% Topical Sol 50 ML BOT TOP PRN (10:58)
[2017-07-26] MEDS: Insulin Regular 300 UNITS/3 ML VIAL SC PRN (12:26)
[2017-07-26] MEDS: Vancomycin HCl 2 GM, Admixture Fee 1 EACH in Sodium Chloride 0.9% 500 ML IVPB SCH (20:47)
[2017-07-26] MEDS: Atorvastatin Calcium 40 MG TAB PO SCH (20:49)
[2017-07-27] MEDS: Piperacillin/Tazobactam 3.375 GM in Sodium Chloride 0.9% 100 ML IVPB SCH ×2 (00:34→05:39)
--- NOTE | 2017-07-27 09:12 | PDOC.PN ---
- Subjective Encounter Start Date: 07/27/17 Encounter Start Time: 07:20 Patient seen and examined. No new complaints. No overnight events - Objective Resuscitation Status: Resuscitation Status FULL:Full Resuscitation MAR Reviewed: Yes Vital Signs & Weight: Vital Signs (12 hours) Temp Pulse Resp BP BP Pulse Ox 07/27/17 08:02 98.0 F 77 16 159/76 H 100 07/27/17 04:00 98.9 F 71 16 134/65 97 07/26/17 20:48 148/68 H Weight Admit Weight 301 lb 9 oz Weight 298 lb 12.8 oz I&O: 07/26/17 07/27/17 07/28/17 05:59 06:59 06:59 Intake Total Output Total Balance Result Diagrams: 07/26/17 04:51 07/26/17 04:51 Additional Labs: Accuchecks 07/27/17 07/26/17 07/26/17 05:42 20:13 16:39 POC Glucose 171 H 186 H 131 H 07/26/17 11:17 POC Glucose 202 H EKG Reviewed by me: Yes (nsr) Phys Exam - Physical Examination Constitutional: NAD HEENT: PERRLA, moist MMs, sclera anicteric Neck: no JVD, supple Respiratory: no wheezing, no rales, no rhonchi Cardiovascular: RRR, no significant murmur, no rub Gastrointestinal: soft, non-tender, no distention, positive bowel sounds Musculoskeletal: no edema, pulses present Neurological: non-focal, normal sensation, moves all 4 limbs Lymphatic: no nodes Psychiatric: normal affect, A&O x 3 Skin: no rash, normal turgor Dx/Plan (1) Sternal wound infection Code(s): [id number] - Status: Acute (2) Sepsis Code(s): A41.9 - SEPSIS, UNSPECIFIED ORGANISM Status: Acute (3) Hyperkalemia Code(s): E87.5 - HYPERKALEMIA Status: Acute Comment: mild (4) Ischemic cardiomyopathy Code(s): I25.5 - ISCHEMIC CARDIOMYOPATHY Status: Chronic (5) Anemia, normocytic normochromic Code(s): D64.9 - ANEMIA, UNSPECIFIED Status: Chronic (6) CAD (coronary artery disease) Code(s): I25.10 - ATHSCL HEART DISEASE OF [place] CORONARY ARTERY W/O ANG PCTRS Status: Chronic (7) Diabetes type 2, controlled Code(s): E11.9 - TYPE 2 DIABETES MELLITUS WITHOUT COMPLICATIONS Status: Chronic (8) Dyslipidemia Code(s): E78.5 - HYPERLIPIDEMIA, UNSPECIFIED Status: Chronic (9) Hypertension Code(s): I10 - ESSENTIAL (PRIMARY) HYPERTENSION Status: Chronic (10) Morbid obesity with BMI of 45.0-49.9, adult Code(s): E66.01 - MORBID (SEVERE) OBESITY DUE TO EXCESS CALORIES; Z68.42 - BODY MASS INDEX (BMI) 45.0-49.9, ADULT Status: Chronic (11) CKD (chronic kidney disease) stage 3, GFR 30-59 ml/min Code(s): N18.3 - CHRONIC KIDNEY DISEASE, STAGE 3 (MODERATE) Status: Chronic (12) Chronic diastolic (congestive) heart failure Code(s): I50.32 - CHRONIC DIASTOLIC (CONGESTIVE) HEART FAILURE Status: Chronic - Plan cont current plan of care, continue antibiotics * DC zosyn * start rocephin * continue vancomycin * wound care with wound vac * will need social work for outpt wound vac arrangement * surgeon to look tomorrow * medication reviewed as below * symptomatic treatment * pain control. Review of Systems - Review of Systems Eyes: negative: Pain, Vision Change, Conjunctivae Inflammation, Eyelid Inflammation, Redness, Other ENT: negative: Ear Pain, Ear Discharge, Nose Pain, Nose Discharge, Nose Congestion, Mouth Pain, Mouth Swelling, Throat Pain, Throat Swelling, Other Respiratory: negative: Cough, Dry, Shortness of Breath, Hemoptysis, SOB with Excertion, Pleuritic Pain, Sputum, Wheezing Cardiovascular: negative: chest pain, palpitations, orthopnea, paroxysmal nocturnal dyspnea, edema, light headedness, other Gastrointestinal: negative: Nausea, Vomiting, Abdominal Pain, Diarrhea, Constipation, Melena, Hematochezia, Other Genitourinary: negative: Dysuria, Frequency, Incontinence, Hematuria, Retention , Other Musculoskeletal: negative: Neck Pain, Shoulder Pain, Arm Pain, Back Pain, Hand Pain, Leg Pain, Foot Pain, Other Skin: negative: Rash, Lesions, Kelvin, Bruising, Other - Medications/Allergies Allergies/Adverse Reactions: Allergies Allergy/AdvReac Type Severity Reaction Status Date / Time adhesive Allergy Verified 07/24/17 22:46 Medications: Current Medications Acetaminophen (Tylenol) 650 mg PO Q4H PRN PRN Reason: Headache/Fever or Pain Hydrocodone Bitart/Acetaminophen ([place] 5/325) 1 tab PO Q4H PRN PRN Reason: Moderate Pain (4-6) Al Hydroxide/Mg Hydroxide (Maalox) 30 ml PO Q6H PRN PRN Reason: Heartburn or Indigestion Alogliptin Benzoate (Alogliptin) 25 mg PO QAM-WM [facility] Last Admin: 07/26/17 09:51 Dose: 25 mg Artificial Tears (Tears Naturale) 0 drop EA EYE PRN PRN PRN Reason: Dry Eyes Aspirin (Aspirin Chewable) 162 mg PO BID [facility] Last Admin: 07/26/17 20:47 Dose: 162 mg Atorvastatin Calcium (Lipitor) 40 mg PO HS [facility] Last Admin: 07/26/17 20:49 Dose: 40 mg Clonidine (Catapres) 0.1 mg PO BID [facility] Last Admin: 07/26/17 20:48 Dose: 0.1 mg Dextrose/Water (Dextrose 50%) 25 gm SLOW IVP PRN PRN PRN Reason: Hypoglycemia Enoxaparin Sodium (Lovenox) 40 mg SC 0900 [facility] Last Admin: 07/26/17 09:50 Dose: 40 mg Famotidine (Pepcid) 20 mg PO BID [facility] Last Admin: 07/26/17 20:49 Dose: 20 mg Furosemide (Lasix) 80 mg PO DAILY [facility] Last Admin: 07/26/17 09:47 Dose: 80 mg Glucagon (Glucagon) 1 mg IM PRN PRN PRN Reason: Hypoglycemia Guaifenesin (Robitussin Sf) 200 mg PO Q4H PRN PRN Reason: Cough Hydralazine HCl (Apresoline) 10 mg SLOW IVP Q4H PRN PRN Reason: Systolic BP > 180 Dextrose/Water (D5w) 1,000 mls @ 0 mls/hr IV .Q0M PRN; As Directed PRN Reason: Hypoglycemia Vancomycin HCl 2 gm/Miscellaneous Medication 1 each/ Sodium Chloride 500 mls @ 250 mls/hr IVPB Q24HR [facility] Last Admin: 07/26/17 20:47 Dose: 500 mls Ceftriaxone Sodium 2 gm/ (Sodium Chloride) 100 mls @ 200 mls/hr IVPB Q24HR [facility] Insulin Human Regular (Humulin R) 0 units SC .AGGRESSIVE SLIDING PRN PRN Reason: Aggressive Sliding Scale Last Admin: 07/26/17 12:26 Dose: 6 unit Lidocaine HCl (Xylocaine 4% Topical [place]ki) 2 ml TOP DAILY PRN PRN Reason: with dressing change Lisinopril (Zestril) 2.5 mg PO DAILY [facility] Last Admin: 07/26/17 09:46 Dose: 2.5 mg Loperamide HCl (Imodium) 2 mg PO PRN PRN PRN Reason: Diarrhea/Loose Stools Loratadine (Claritin) 10 mg PO DAILYPRN PRN PRN Reason: Sinus Symptoms Magnesium Hydroxide (Milk Of Magnesium) 30 ml PO DAILYPRN PRN PRN Reason: Constipation Last Admin: 07/26/17 20:56 Dose: 30 ml Metformin HCl (Glucophage Xr) 1,000 mg PO QAM-WM [facility] Last Admin: 07/26/17 09:50 Dose: 1,000 mg Metoprolol Tartrate (Lopressor) 25 mg PO BID [facility] Last Admin: 07/26/17 20:49 Dose: 25 mg Mineral Oil/White Petrolatum (Eucerin Cream) 0 gm TOP BIDPRN PRN PRN Reason: Dry Skin Miscellaneous Medication (Pharmacy To Dose) 1 each IVPB ASDIR [facility] Morphine Sulfate (Morphine) 2 mg SLOW IVP Q4H PRN PRN Reason: Pain Last Admin: 07/26/17 09:50 Dose: 2 mg Nitroglycerin (Nitrostat) 0.4 mg SL Q5MIN PRN PRN Reason: Chest Pain Ondansetron HCl (Zofran Odt) 4 mg PO Q6H PRN PRN Reason: Nausea/Vomiting Oxycodone/Acetaminophen (Percocet 5/325) 1 tab PO Q4H PRN PRN Reason: Mild-Moderate Pain (1-5) Oxycodone/Acetaminophen (Percocet 5/325) 2 tab PO Q4H PRN PRN Reason: Moderate to Severe Pain (6-10) Phenol (Chloraseptic [place] 180 Ml Bot) 0 ml PO PRN PRN PRN Reason: Sore Throat Prasugrel (Effient) 10 mg PO DAILY [facility] Last Admin: 07/26/17 09:50 Dose: 10 mg Saccharomyces Boulardii (Florastor) 250 mg PO DAILY [facility] Last Admin: 07/26/17 09:47 Dose: 250 mg Senna (Senokot) 2 tab PO HSPRN PRN PRN Reason: Constipation Sodium Chloride (Flush - Normal Saline) 10 ml IVF Q12HR [facility] Last Admin: 07/26/17 20:47 Dose: 10 ml Sodium Chloride (Flush - Normal Saline) 10 ml IVF PRN PRN PRN Reason: Saline Flush Sodium Chloride ([place] Nasal [place] 0.65%) 0 ml EA NARE QIDPRN PRN PRN Reason: Nasal Congestion
[2017-07-27] MEDS: cefTRIAXone\\ROCEPHIN 2 GM in Sodium Chloride 0.9% 100 ML IVPB SCH (10:33)
[2017-07-27] MEDS: Prasugrel 10 MG TAB PO SCH (10:34)
[2017-07-27] MEDS: Lisinopril 2.5 MG TAB PO SCH (10:34)
[2017-07-27] MEDS: Saccharomyces boulardii 250 MG CAP PO SCH (10:34)
[2017-07-27] MEDS: Alogliptin 25 MG TAB PO SCH (10:34)
[2017-07-27] MEDS: metFORMIN XR 500 MG TAB PO SCH (10:35)
[2017-07-27] MEDS: Famotidine 20 MG TAB PO SCH ×2 (10:35→20:26)
[2017-07-27] MEDS: Furosemide 80 MG TAB PO SCH (10:36)
[2017-07-27] MEDS: Enoxaparin Sodium 40 MG/0.4 ML SYRINGE SC SCH (10:36)
[2017-07-27] MEDS: Metoprolol Tartrate 25 MG TAB PO SCH ×2 (10:37→20:27)
[2017-07-27] MEDS: cloNIDine 0.1 MG TAB PO SCH ×2 (10:58→20:28)
[2017-07-27] MEDS ORDERED: OXACILLIN IVPB SCH (12:00)
[2017-07-27] MEDS: Rifampin 300 MG CAP PO SCH ×2 (12:56→20:27)
[2017-07-27] MEDS: Oxacillin 2 GM in Sodium Chloride 0.9% 100 ML IVPB SCH ×2 (12:56→18:26)
[2017-07-27] MEDS: Insulin Regular 300 UNITS/3 ML VIAL SC PRN (18:28)
[2017-07-27] MEDS: Atorvastatin Calcium 40 MG TAB PO SCH (20:27)
[2017-07-27 20:29] LABS: Vancomycin, Trough 18.4 ug/mL
[2017-07-28] MEDS: Oxacillin 2 GM in Sodium Chloride 0.9% 100 ML IVPB SCH ×2 (00:17→05:39)
[2017-07-28 05:47] LABS: #Eosinphils 0.1 thou/uL (0.0-0.7); #Lymphocytes 1.1 thou/uL (1.20-3.40); #Monocytes 0.9 thou/uL (0.11-0.59); #Neutrophils 6.8 thou/uL (1.40-6.50); %Basophils 0.3 % (0.0-1.0); %Eosinophils 1.4 % (0.0-10.0); %Lymphocytes 12.3 % (21.0-51.0); %Monocytes 9.6 % (0.0-10.0); %Neutrophils 76.4 % (42.0-75.0); Mean Corpuscular HGB CONC 31.6 g/dL (32.0-36.0); Mean Corpuscular Hemoglobin 27.7 pg (27.0-31.0); Mean Corpuscular Volume 87.4 fl (81.0-99.0); Mean Platelet Volume 7.3 fL (7.4-10.4); Platelet Count 319 thou/uL (130-400); RBC Distribution Width 16.4 % (11.5-14.5); Red Blood Cell (RBC) Count 2.89 mill/uL (4.20-5.40); White Blood Cell (WBC) Count 8.9 thou/uL (4.8-10.8)
[2017-07-28 06:01] LABS: Anion Gap 12 mmol/L (10-20); BUN (Urea Nitrogen) 19 mg/dL (9.8-20.1); CRP (Inflammatory) 7.24 mg/dL (= or < 0.5); Calc. Creatinine Clearance 115 mL/min (70-130); Calcium 8.4 mg/dL (7.8-10.44); Carbon Dioxide 23 mmol/L (22-29); Chloride 107 mmol/L (98-107); Estimated GFR-MDRD 51; Glucose 113 mg/dL (70-105); Potassium 4.3 mmol/L (3.5-5.1); Sodium 138 mmol/L (136-145)
[2017-07-28] MEDS: Enoxaparin Sodium 40 MG/0.4 ML SYRINGE SC SCH (09:01)
[2017-07-28] MEDS: Furosemide 80 MG TAB PO SCH (09:02)
[2017-07-28] MEDS: metFORMIN XR 500 MG TAB PO SCH (09:02)
[2017-07-28] MEDS: Metoprolol Tartrate 25 MG TAB PO SCH ×2 (09:02→20:40)
[2017-07-28] MEDS: Saccharomyces boulardii 250 MG CAP PO SCH (09:03)
[2017-07-28] MEDS: Famotidine 20 MG TAB PO SCH ×2 (09:03→20:40)
[2017-07-28] MEDS: Acetaminophen 325 MG TAB PO PRN ×2 (09:03→18:57)
[2017-07-28] MEDS: Lisinopril 2.5 MG TAB PO SCH (09:03)
[2017-07-28] MEDS: Alogliptin 25 MG TAB PO SCH (09:04)
[2017-07-28] MEDS: cloNIDine 0.1 MG TAB PO SCH ×2 (09:05→20:39)
[2017-07-28] MEDS: Prasugrel 10 MG TAB PO SCH (09:05)
[2017-07-28] MEDS: Rifampin 300 MG CAP PO SCH ×2 (09:21→21:57)
[2017-07-28 09:25] VITALS: BMI 48.6
--- NOTE | 2017-07-28 09:39 | PDOC.PN ---
- Subjective Encounter Start Date: 07/28/17 Encounter Start Time: 07:30 Patient seen and examined. No new complaints. No overnight events - Objective Resuscitation Status: Resuscitation Status FULL:Full Resuscitation MAR Reviewed: Yes Vital Signs & Weight: Vital Signs (12 hours) Temp Pulse Resp BP BP Pulse Ox 07/28/17 09:03 88 182/82 H 07/28/17 08:00 98.1 F 88 20 179/79 H 97 07/28/17 07:22 97.9 F 77 16 182/82 H 99 07/28/17 04:00 98.8 F 76 16 139/62 98 Weight Admit Weight 301 lb 9 oz Weight 292 lb 11.2 oz I&O: 07/27/17 07/28/17 07/29/17 06:59 06:59 06:59 Intake Total 500 Output Total 1100 Balance -600 Result Diagrams: 07/28/17 05:21 07/28/17 05:21 Additional Labs: Accuchecks 07/28/17 07/27/17 07/27/17 05:26 21:16 16:56 POC Glucose 139 H 208 H 182 H 07/27/17 11:15 POC Glucose 158 H EKG Reviewed by me: Yes Phys Exam - Physical Examination Constitutional: NAD HEENT: PERRLA, moist MMs, sclera anicteric Neck: no JVD, supple Respiratory: no wheezing, no rales, no rhonchi Cardiovascular: RRR, no significant murmur, no rub wound vac in place Gastrointestinal: soft, non-tender, no distention, positive bowel sounds Musculoskeletal: no edema, pulses present Neurological: non-focal, normal sensation, moves all 4 limbs Lymphatic: no nodes Psychiatric: normal affect, A&O x 3 Skin: no rash, normal turgor Dx/Plan (1) Sternal wound infection Code(s): [id number] - Status: Acute (2) Sepsis Code(s): A41.9 - SEPSIS, UNSPECIFIED ORGANISM Status: Acute (3) Hyperkalemia Code(s): E87.5 - HYPERKALEMIA Status: Acute Comment: mild (4) Ischemic cardiomyopathy Code(s): I25.5 - ISCHEMIC CARDIOMYOPATHY Status: Chronic (5) Anemia, normocytic normochromic Code(s): D64.9 - ANEMIA, UNSPECIFIED Status: Chronic (6) CAD (coronary artery disease) Code(s): I25.10 - ATHSCL HEART DISEASE OF [place] CORONARY ARTERY W/O ANG PCTRS Status: Chronic (7) Diabetes type 2, controlled Code(s): E11.9 - TYPE 2 DIABETES MELLITUS WITHOUT COMPLICATIONS Status: Chronic (8) Dyslipidemia Code(s): E78.5 - HYPERLIPIDEMIA, UNSPECIFIED Status: Chronic (9) Hypertension Code(s): I10 - ESSENTIAL (PRIMARY) HYPERTENSION Status: Chronic (10) Morbid obesity with BMI of 45.0-49.9, adult Code(s): E66.01 - MORBID (SEVERE) OBESITY DUE TO EXCESS CALORIES; Z68.42 - BODY MASS INDEX (BMI) 45.0-49.9, ADULT Status: Chronic (11) CKD (chronic kidney disease) stage 3, GFR 30-59 ml/min Code(s): N18.3 - CHRONIC KIDNEY DISEASE, STAGE 3 (MODERATE) Status: Chronic (12) Chronic diastolic (congestive) heart failure Code(s): I50.32 - CHRONIC DIASTOLIC (CONGESTIVE) HEART FAILURE Status: Chronic - Plan cont current plan of care, continue antibiotics, 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 Review of Systems - Review of Systems Eyes: negative: Pain, Vision Change, Conjunctivae Inflammation, Eyelid Inflammation, Redness, Other ENT: negative: Ear Pain, Ear Discharge, Nose Pain, Nose Discharge, Nose Congestion, Mouth Pain, Mouth Swelling, Throat Pain, Throat Swelling, Other Respiratory: negative: Cough, Dry, Shortness of Breath, Hemoptysis, SOB with Excertion, Pleuritic Pain, Sputum, Wheezing Cardiovascular: negative: chest pain, palpitations, orthopnea, paroxysmal nocturnal dyspnea, edema, light headedness, other Gastrointestinal: negative: Nausea, Vomiting, Abdominal Pain, Diarrhea, Constipation, Melena, Hematochezia, Other Genitourinary: negative: Dysuria, Frequency, Incontinence, Hematuria, Retention , Other Musculoskeletal: negative: Neck Pain, Shoulder Pain, Arm Pain, Back Pain, Hand Pain, Leg Pain, Foot Pain, Other Skin: negative: Rash, Lesions, Kelvin, Bruising, Other - Medications/Allergies Allergies/Adverse Reactions: Allergies Allergy/AdvReac Type Severity Reaction Status Date / Time adhesive Allergy Verified 07/24/17 22:46 Medications: Current Medications Acetaminophen (Tylenol) 650 mg PO Q4H PRN PRN Reason: Headache/Fever or Pain Last Admin: 07/28/17 09:03 Dose: 650 mg Hydrocodone Bitart/Acetaminophen ([place] 5/325) 1 tab PO Q4H PRN PRN Reason: Moderate Pain (4-6) Al Hydroxide/Mg Hydroxide (Maalox) 30 ml PO Q6H PRN PRN Reason: Heartburn or Indigestion Alogliptin Benzoate (Alogliptin) 25 mg PO QAM-WM [facility] Last Admin: 07/28/17 09:04 Dose: 25 mg Artificial Tears (Tears Naturale) 0 drop EA EYE PRN PRN PRN Reason: Dry Eyes Aspirin (Aspirin Chewable) 162 mg PO BID [facility] Last Admin: 07/28/17 09:03 Dose: 162 mg Atorvastatin Calcium (Lipitor) 40 mg PO HS [facility] Last Admin: 07/27/17 20:27 Dose: 40 mg Clonidine (Catapres) 0.1 mg PO BID [facility] Last Admin: 07/28/17 09:05 Dose: 0.1 mg Dextrose/Water (Dextrose 50%) 25 gm SLOW IVP PRN PRN PRN Reason: Hypoglycemia Enoxaparin Sodium (Lovenox) 40 mg SC 0900 [facility] Last Admin: 07/28/17 09:01 Dose: 40 mg Famotidine (Pepcid) 20 mg PO BID [facility] Last Admin: 07/28/17 09:03 Dose: 20 mg Furosemide (Lasix) 80 mg PO DAILY [facility] Last Admin: 07/28/17 09:02 Dose: 80 mg Glucagon (Glucagon) 1 mg IM PRN PRN PRN Reason: Hypoglycemia Guaifenesin (Robitussin Sf) 200 mg PO Q4H PRN PRN Reason: Cough Last Admin: 07/28/17 00:17 Dose: 200 mg Hydralazine HCl (Apresoline) 10 mg SLOW IVP Q4H PRN PRN Reason: Systolic BP > 180 Dextrose/Water (D5w) 1,000 mls @ 0 mls/hr IV .Q0M PRN; As Directed PRN Reason: Hypoglycemia Cefazolin Sodium 1 gm/ Syringe (2.5 ml/ Sterile Water) 10 mls @ 120 mls/hr SLOW IVP 0400,1000,1600,2200 [facility] Insulin Human Regular (Humulin R) 0 units SC .AGGRESSIVE SLIDING PRN PRN Reason: Aggressive Sliding Scale Last Admin: 07/27/17 18:28 Dose: 3 unit Lidocaine HCl (Xylocaine 4% Topical [place]ki) 2 ml TOP DAILY PRN PRN Reason: with dressing change Lisinopril (Zestril) 2.5 mg PO DAILY [facility] Last Admin: 07/28/17 09:03 Dose: 2.5 mg Loperamide HCl (Imodium) 2 mg PO PRN PRN PRN Reason: Diarrhea/Loose Stools Loratadine (Claritin) 10 mg PO DAILYPRN PRN PRN Reason: Sinus Symptoms Magnesium Hydroxide (Milk Of Magnesium) 30 ml PO DAILYPRN PRN PRN Reason: Constipation Last Admin: 07/26/17 20:56 Dose: 30 ml Metformin HCl (Glucophage Xr) 1,000 mg PO QA-[facility] Last Admin: 07/28/17 09:02 Dose: 1,000 mg Metoprolol Tartrate (Lopressor) 25 mg PO BID [facility] Last Admin: 07/28/17 09:02 Dose: 25 mg Mineral Oil/White Petrolatum (Eucerin Cream) 0 gm TOP BIDPRN PRN PRN Reason: Dry Skin Morphine Sulfate (Morphine) 2 mg SLOW IVP Q4H PRN PRN Reason: Pain Last Admin: 07/26/17 09:50 Dose: 2 mg Nitroglycerin (Nitrostat) 0.4 mg SL Q5MIN PRN PRN Reason: Chest Pain Ondansetron HCl (Zofran Odt) 4 mg PO Q6H PRN PRN Reason: Nausea/Vomiting Oxycodone/Acetaminophen (Percocet 5/325) 1 tab PO Q4H PRN PRN Reason: Mild-Moderate Pain (1-5) Oxycodone/Acetaminophen (Percocet 5/325) 2 tab PO Q4H PRN PRN Reason: Moderate to Severe Pain (6-10) Phenol (Chloraseptic [place] 180 Ml Bot) 0 ml PO PRN PRN PRN Reason: Sore Throat Prasugrel (Effient) 10 mg PO DAILY [facility] Last Admin: 07/28/17 09:05 Dose: 10 mg Rifampin (Rifadin) 300 mg PO 1000,2200 [facility] Last Admin: 07/28/17 09:21 Dose: 300 mg Saccharomyces Boulardii (Florastor) 250 mg PO DAILY [facility] Last Admin: 07/28/17 09:03 Dose: 250 mg Senna (Senokot) 2 tab PO HSPRN PRN PRN Reason: Constipation Sodium Chloride (Flush - Normal Saline) 10 ml IVF Q12HR [facility] Last Admin: 07/28/17 09:02 Dose: 10 ml Sodium Chloride (Flush - Normal Saline) 10 ml IVF PRN PRN PRN Reason: Saline Flush Sodium Chloride ([place] Nasal [place] 0.65%) 0 ml EA NARE QIDPRN PRN PRN Reason: Nasal Congestion
[2017-07-28] MEDS: CEFAZOLIN 1 GM, Syringe 2.5 ML in Sterile Water 7.5 ML SLOW IVP SCH ×3 (10:29→21:57)
[2017-07-28] MEDS: Insulin Regular 300 UNITS/3 ML VIAL SC PRN (12:02)
[2017-07-28] MEDS: oxyCODONE/Acetaminophen 5 mg/325 mg Tablet PO PRN (13:34)
[2017-07-28] MEDS: Atorvastatin Calcium 40 MG TAB PO SCH (20:40)
[2017-07-29] MEDS: CEFAZOLIN 1 GM, Syringe 2.5 ML in Sterile Water 7.5 ML SLOW IVP SCH (03:10)
[2017-07-29] MEDS: cloNIDine 0.1 MG TAB PO SCH ×2 (08:21→21:03)
[2017-07-29] MEDS: Enoxaparin Sodium 40 MG/0.4 ML SYRINGE SC SCH (08:21)
[2017-07-29] MEDS: Famotidine 20 MG TAB PO SCH ×2 (08:21→21:03)
[2017-07-29] MEDS: Alogliptin 25 MG TAB PO SCH (08:21)
[2017-07-29] MEDS: Saccharomyces boulardii 250 MG CAP PO SCH (08:22)
[2017-07-29] MEDS: Lisinopril 2.5 MG TAB PO SCH (08:22)
[2017-07-29] MEDS: Prasugrel 10 MG TAB PO SCH (08:22)
[2017-07-29] MEDS: Metoprolol Tartrate 25 MG TAB PO SCH ×2 (08:22→21:03)
[2017-07-29] MEDS: metFORMIN XR 500 MG TAB PO SCH (08:22)
[2017-07-29] MEDS: Furosemide 80 MG TAB PO SCH (08:22)
[2017-07-29] MEDS: Rifampin 300 MG CAP PO SCH ×2 (08:23→21:03)
--- NOTE | 2017-07-29 09:08 | PDOC.PN ---
- Subjective Encounter Start Date: 07/29/17 Encounter Start Time: 08:00 Patient seen and examined. No new complaints. No overnight events - Objective Resuscitation Status: Resuscitation Status FULL:Full Resuscitation MAR Reviewed: Yes Vital Signs & Weight: Vital Signs (12 hours) Temp Pulse Resp BP BP Pulse Ox 07/29/17 08:22 84 07/29/17 08:21 186/81 H 07/29/17 07:12 98.5 F 84 18 186/81 H 99 07/29/17 04:00 99.0 F 79 16 134/65 99 Weight Admit Weight 301 lb 9 oz Weight 303 lb 6.4 oz I&O: 07/28/17 07/29/17 07/30/17 06:59 06:59 06:59 Intake Total 500 1460 Output Total 1100 1240 Balance -600 220 Result Diagrams: 07/28/17 05:21 07/28/17 05:21 Additional Labs: Accuchecks 07/29/17 07/28/17 07/28/17 05:55 20:21 16:15 POC Glucose 118 H 147 H 120 H 07/28/17 11:13 POC Glucose 156 H EKG Reviewed by me: Yes Phys Exam - Physical Examination Constitutional: NAD HEENT: PERRLA, moist MMs, sclera anicteric Neck: no JVD, supple Respiratory: no wheezing, no rales, no rhonchi Cardiovascular: RRR, no significant murmur, no rub Gastrointestinal: soft, non-tender, no distention, positive bowel sounds Musculoskeletal: no edema, pulses present Neurological: non-focal, normal sensation Lymphatic: no nodes Psychiatric: normal affect, A&O x 3 Skin: no rash, normal turgor Dx/Plan (1) Sternal wound infection Code(s): [id number] - Status: Acute (2) Sepsis Code(s): A41.9 - SEPSIS, UNSPECIFIED ORGANISM Status: Acute (3) Hyperkalemia Code(s): E87.5 - HYPERKALEMIA Status: Acute Comment: mild (4) Ischemic cardiomyopathy Code(s): I25.5 - ISCHEMIC CARDIOMYOPATHY Status: Chronic (5) Anemia, normocytic normochromic Code(s): D64.9 - ANEMIA, UNSPECIFIED Status: Chronic (6) CAD (coronary artery disease) Code(s): I25.10 - ATHSCL HEART DISEASE OF [place] CORONARY ARTERY W/O ANG PCTRS Status: Chronic (7) Diabetes type 2, controlled Code(s): E11.9 - TYPE 2 DIABETES MELLITUS WITHOUT COMPLICATIONS Status: Chronic (8) Dyslipidemia Code(s): E78.5 - HYPERLIPIDEMIA, UNSPECIFIED Status: Chronic (9) Hypertension Code(s): I10 - ESSENTIAL (PRIMARY) HYPERTENSION Status: Chronic (10) Morbid obesity with BMI of 45.0-49.9, adult Code(s): E66.01 - MORBID (SEVERE) OBESITY DUE TO EXCESS CALORIES; Z68.42 - BODY MASS INDEX (BMI) 45.0-49.9, ADULT Status: Chronic (11) CKD (chronic kidney disease) stage 3, GFR 30-59 ml/min Code(s): N18.3 - CHRONIC KIDNEY DISEASE, STAGE 3 (MODERATE) Status: Chronic (12) Chronic diastolic (congestive) heart failure Code(s): I50.32 - CHRONIC DIASTOLIC (CONGESTIVE) HEART FAILURE Status: Chronic (13) Bacteremia due to Staphylococcus aureus Code(s): R78.81 - BACTEREMIA Status: Acute - Plan cont current plan of care, plan discussed w/ family, 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 Review of Systems - Review of Systems Eyes: negative: Pain, Vision Change, Conjunctivae Inflammation, Eyelid Inflammation, Redness, Other ENT: negative: Ear Pain, Ear Discharge, Nose Pain, Nose Discharge, Nose Congestion, Mouth Pain, Mouth Swelling, Throat Pain, Throat Swelling, Other Respiratory: negative: Cough, Dry, Shortness of Breath, Hemoptysis, SOB with Excertion, Pleuritic Pain, Sputum, Wheezing Cardiovascular: negative: chest pain, palpitations, orthopnea, paroxysmal nocturnal dyspnea, edema, light headedness, other Gastrointestinal: negative: Nausea, Vomiting, Abdominal Pain, Diarrhea, Constipation, Melena, Hematochezia, Other Genitourinary: negative: Dysuria, Frequency, Incontinence, Hematuria, Retention , Other Musculoskeletal: negative: Neck Pain, Shoulder Pain, Arm Pain, Back Pain, Hand Pain, Leg Pain, Foot Pain, Other Skin: negative: Rash, Lesions, Kelvin, Bruising, Other - Medications/Allergies Allergies/Adverse Reactions: Allergies Allergy/AdvReac Type Severity Reaction Status Date / Time adhesive Allergy Verified 07/24/17 22:46 Medications: Current Medications Acetaminophen (Tylenol) 650 mg PO Q4H PRN PRN Reason: Headache/Fever or Pain Last Admin: 07/28/17 18:57 Dose: 650 mg Hydrocodone Bitart/Acetaminophen ([place] 5/325) 1 tab PO Q4H PRN PRN Reason: Moderate Pain (4-6) Al Hydroxide/Mg Hydroxide (Maalox) 30 ml PO Q6H PRN PRN Reason: Heartburn or Indigestion Alogliptin Benzoate (Alogliptin) 25 mg PO QAM-WM [facility] Last Admin: 07/29/17 08:21 Dose: 25 mg Artificial Tears (Tears Naturale) 0 drop EA EYE PRN PRN PRN Reason: Dry Eyes Aspirin (Aspirin Chewable) 162 mg PO BID [facility] Last Admin: 07/29/17 08:22 Dose: 162 mg Atorvastatin Calcium (Lipitor) 40 mg PO HS [facility] Last Admin: 07/28/17 20:40 Dose: 40 mg Cefaclor (Ceclor) 500 mg PO Q8H [facility] Clonidine (Catapres) 0.1 mg PO BID [facility] Last Admin: 07/29/17 08:21 Dose: 0.1 mg Dextrose/Water (Dextrose 50%) 25 gm SLOW IVP PRN PRN PRN Reason: Hypoglycemia Enoxaparin Sodium (Lovenox) 40 mg SC 0900 [facility] Last Admin: 07/29/17 08:21 Dose: 40 mg Famotidine (Pepcid) 20 mg PO BID [facility] Last Admin: 07/29/17 08:21 Dose: 20 mg Furosemide (Lasix) 80 mg PO DAILY [facility] Last Admin: 07/29/17 08:22 Dose: 80 mg Glucagon (Glucagon) 1 mg IM PRN PRN PRN Reason: Hypoglycemia Guaifenesin (Robitussin Sf) 200 mg PO Q4H PRN PRN Reason: Cough Last Admin: 07/28/17 00:17 Dose: 200 mg Hydralazine HCl (Apresoline) 10 mg SLOW IVP Q4H PRN PRN Reason: Systolic BP > 180 Dextrose/Water (D5w) 1,000 mls @ 0 mls/hr IV .Q0M PRN; As Directed PRN Reason: Hypoglycemia Insulin Human Regular (Humulin R) 0 units SC .AGGRESSIVE SLIDING PRN PRN Reason: Aggressive Sliding Scale Last Admin: 07/28/17 12:02 Dose: 3 unit Lidocaine HCl (Xylocaine 4% Topical Nikki) 2 ml TOP DAILY PRN PRN Reason: with dressing change Lisinopril (Zestril) 2.5 mg PO DAILY [facility] Last Admin: 07/29/17 08:22 Dose: 2.5 mg Loperamide HCl (Imodium) 2 mg PO PRN PRN PRN Reason: Diarrhea/Loose Stools Loratadine (Claritin) 10 mg PO DAILYPRN PRN PRN Reason: Sinus Symptoms Magnesium Hydroxide (Milk Of Magnesium) 30 ml PO DAILYPRN PRN PRN Reason: Constipation Last Admin: 07/26/17 20:56 Dose: 30 ml Metformin HCl (Glucophage Xr) 1,000 mg PO QAM-[facility] Last Admin: 07/29/17 08:22 Dose: 1,000 mg Metoprolol Tartrate (Lopressor) 25 mg PO BID [facility] Last Admin: 07/29/17 08:22 Dose: 25 mg Mineral Oil/White Petrolatum (Eucerin Cream) 0 gm TOP BIDPRN PRN PRN Reason: Dry Skin Morphine Sulfate (Morphine) 2 mg SLOW IVP Q4H PRN PRN Reason: Pain Last Admin: 07/26/17 09:50 Dose: 2 mg Nitroglycerin (Nitrostat) 0.4 mg SL Q5MIN PRN PRN Reason: Chest Pain Ondansetron HCl (Zofran Odt) 4 mg PO Q6H PRN PRN Reason: Nausea/Vomiting Oxycodone/Acetaminophen (Percocet 5/325) 1 tab PO Q4H PRN PRN Reason: Mild-Moderate Pain (1-5) Oxycodone/Acetaminophen (Percocet 5/325) 2 tab PO Q4H PRN PRN Reason: Moderate to Severe Pain (6-10) Last Admin: 07/28/17 13:34 Dose: 2 tab Phenol (Chloraseptic [place] 180 Ml Bot) 0 ml PO PRN PRN PRN Reason: Sore Throat Prasugrel (Effient) 10 mg PO DAILY [facility] Last Admin: 07/29/17 08:22 Dose: 10 mg Rifampin (Rifadin) 300 mg PO 1000,2200 [facility] Last Admin: 07/29/17 08:23 Dose: 300 mg Saccharomyces Boulardii (Florastor) 250 mg PO DAILY [facility] Last Admin: 07/29/17 08:22 Dose: 250 mg Senna (Senokot) 2 tab PO HSPRN PRN PRN Reason: Constipation Sodium Chloride (Flush - Normal Saline) 10 ml IVF Q12HR [facility] Last Admin: 07/29/17 08:21 Dose: 10 ml Sodium Chloride (Flush - Normal Saline) 10 ml IVF PRN PRN PRN Reason: Saline Flush Last Admin: 07/29/17 03:11 Dose: 10 ml Sodium Chloride ([place] Nasal [place] 0.65%) 0 ml EA NARE QIDPRN PRN PRN Reason: Nasal Congestion
[2017-07-29] MEDS: Cefaclor 250 MG CAP PO SCH ×2 (09:22→17:35)
--- NOTE | 2017-07-29 13:26 | CON ---
DATE OF CONSULTATION: 07/29/2017 REASON FOR CONSULTATION: Sternotomy site infection. HISTORY OF PRESENT ILLNESS: A 61-year-old patient, history of obesity, hypertension, dyslipidemia, and coronary disease, status post recent coronary artery bypass graft surgery at the beginning of June. The patient also has a history of venostasis with previous ulcer which had been managed in her home town by her PCP and she has had this ulcer in the left anterior leg for the past year approximately and it has not improved after wound care and antimicrobial therapy and debridement. After the bypass, she noticed an area of drainage from the inferior segment of the sternotomy incision. Subsequently , she developed further areas of dehiscence. She was seen by her CV surgeon and prescribed antimicrobial therapy both by him as well as the primary care physician as well as topical therapy with progression of the dehiscence. The patient eventually was admitted on 07/24/2017. She had temperature of 99.7, pulse 81, respirations 22, and O2 sat 95% and the overall exam was remarkable for the wounds in the anterior chest area with three areas of opening in the top and middle segment and the lower segment of the sternotomy site. Also, she had this area of round ulceration in the left leg with the description below. Initial labs with white cell count of 8.1, hemoglobin 7.5, platelets 351. Sodium 137, carbon dioxide 23, creatinine 1.23. The liver profile was normal. Albumin 2.5. Chest x-ray with small left posterior pleural effusion. The CV surgeon was consulted and he did a surgical debridement in the next day. A triple lumen catheter was inserted. Superior aspect of the wound was then removed. The fat and fascia were debrided. Sternal wires were examined. There were some loose wires which were tightened reportedly. Manubrial wires had pulled through and they were removed. Some fragments of the manubrium were debrided. A swab was sent for culture. Patient is currently receiving cefaclor. She denies headaches, visual symptoms, sore throat, odynophagia, or dysphagia. She has mild pain in the anterior chest area where the negative pressure dressing is located. No abdominal pain or diarrhea. No genitourinary symptoms. She has mild pain in the left leg, the site of the chronic ulcer. PAST MEDICAL HISTORY: Coronary artery disease, bypass graft surgery, hypertension, dyslipidemia, obesity, chronic venous insufficiency with chronic ulcer in the left leg which has failed management in her home town. ALLERGIES: ADHESIVE TAPE. CURRENT MEDICATIONS: Tylenol, [place], Maalox, alogliptin, aspirin, Lipitor, Ceclor, Catapres, dextrose, Lovenox, Pepcid, Lasix, glucagon, Apresoline, Humulin insulin, Claritin, Imodium, Glucophage, Lopressor, Zofran, Effient, rifampin. PHYSICAL EXAMINATION: VITAL SIGNS: Temperature max 99.2-99.7 on admission. She is currently 98.5, blood pressure 120/58, pulse 84, respirations 18, O2 sat 99%. GENERAL: Appears in no distress, somewhat pale conjunctivae. SKIN: Shows the large ulcer in the left leg measuring approximately, I would say 12 cm x 10 cm with a grayish base. I am not sure if this is silver compound that had been placed on top of the wound. She also has some saphenectomy donor sites in the right medial leg which have slight amount of erythema around and the sore of a dark eschar at the base of the inferior one, but no drainage and then there is sternotomy sites with 3 deep wounds at top ones round shaped, sort of abutting each other and 1 below each other with a very deep penetration into the skin and towards the sternum. The inferior one is a wider and irregular shaped with a kind of grayish base with some granulation tissue at the margins. I would say about 40% granulation and 60% of this grayish tissue. The most recent wound photo note shows fresh granulating surface of the leg wound and the sternotomy site with again a fresh granulating appearance. The microbiology showed Staphylococcus aureus which is methicillin sensitive and peptostreptococcus micros. The patient had a chest x- ray which demonstrated left CVC catheter. ASSESSMENT: Obesity, coronary artery disease with recent bypass graft surgery and sternotomy site infection which seems to penetrate all the way towards the sternum with some wires found loosened and need for debridement of the surface of the manubrium. Typically, in this kind of situation, patient will require more aggressive treatment with IV antimicrobial therapy sometimes. If she fails this attempt at conservative management, she may need a wider debridement and muscle flap. May consider IV antimicrobial therapy through a PICC line with cefazolin to achieve higher bactericidal levels at the site. The ulcer in the left leg appears to be a venous insufficiency ulcer. The differential diagnosis would be pyoderma gangrenosum, but that is less likely. The surface of the ulcer is quite fresh and red and without the typical findings that one sees with pyoderma gangrenosum. This lesion would require compression dressing for proper healing and follow up with specialized wound care. NATHALIE
[2017-07-29] MEDS: oxyCODONE/Acetaminophen 5 mg/325 mg Tablet PO PRN (13:28)
[2017-07-29] MEDS: Loperamide HCl 2 MG CAP PO PRN (13:30)
[2017-07-29] MEDS: Insulin Regular 300 UNITS/3 ML VIAL SC PRN (17:36)
[2017-07-29] MEDS: Atorvastatin Calcium 40 MG TAB PO SCH (21:03)
[2017-07-29] MEDS: Loratadine 10 MG TAB PO PRN (21:03)
[2017-07-30] MEDS: Cefaclor 250 MG CAP PO SCH (00:56)
--- NOTE | 2017-07-30 09:14 | PDOC.PN ---
- Subjective Encounter Start Date: 07/30/17 Encounter Start Time: 07:30 Patient seen and examined. No new complaints. No overnight events - Objective Resuscitation Status: Resuscitation Status FULL:Full Resuscitation MAR Reviewed: Yes Vital Signs & Weight: Vital Signs (12 hours) Temp Pulse Resp BP BP Pulse Ox 07/30/17 07:25 99.3 F 84 18 132/61 96 07/30/17 04:00 99.0 F 79 16 140/64 95 Weight Admit Weight 301 lb 9 oz Weight 301 lb 12.8 oz I&O: 07/29/17 07/30/17 07/31/17 06:59 06:59 06:59 Intake Total 1460 960 Output Total 1240 2100 Balance 220 -1140 Result Diagrams: 07/28/17 05:21 07/28/17 05:21 Additional Labs: Accuchecks 07/30/17 07/29/17 07/29/17 05:37 21:11 15:48 POC Glucose 163 H 248 H 168 H 07/29/17 10:40 POC Glucose 171 H EKG Reviewed by me: Yes Phys Exam - Physical Examination Constitutional: NAD HEENT: PERRLA, moist MMs, sclera anicteric Neck: no JVD, supple Respiratory: no wheezing, no rales, no rhonchi wound vac in place Cardiovascular: RRR, no significant murmur, no rub Gastrointestinal: soft, non-tender, no distention, positive bowel sounds Musculoskeletal: no edema, pulses present wound with dressing on leg Neurological: non-focal, normal sensation Lymphatic: no nodes Psychiatric: normal affect, A&O x 3 Skin: no rash, normal turgor Dx/Plan (1) Sternal wound infection Code(s): [id number] - Status: Acute (2) Sepsis Code(s): A41.9 - SEPSIS, UNSPECIFIED ORGANISM Status: Acute (3) Hyperkalemia Code(s): E87.5 - HYPERKALEMIA Status: Acute Comment: mild (4) Ischemic cardiomyopathy Code(s): I25.5 - ISCHEMIC CARDIOMYOPATHY Status: Chronic (5) Anemia, normocytic normochromic Code(s): D64.9 - ANEMIA, UNSPECIFIED Status: Chronic (6) CAD (coronary artery disease) Code(s): I25.10 - ATHSCL HEART DISEASE OF [place] CORONARY ARTERY W/O ANG PCTRS Status: Chronic (7) Diabetes type 2, controlled Code(s): E11.9 - TYPE 2 DIABETES MELLITUS WITHOUT COMPLICATIONS Status: Chronic (8) Dyslipidemia Code(s): E78.5 - HYPERLIPIDEMIA, UNSPECIFIED Status: Chronic (9) Hypertension Code(s): I10 - ESSENTIAL (PRIMARY) HYPERTENSION Status: Chronic (10) Morbid obesity with BMI of 45.0-49.9, adult Code(s): E66.01 - MORBID (SEVERE) OBESITY DUE TO EXCESS CALORIES; Z68.42 - BODY MASS INDEX (BMI) 45.0-49.9, ADULT Status: Chronic (11) CKD (chronic kidney disease) stage 3, GFR 30-59 ml/min Code(s): N18.3 - CHRONIC KIDNEY DISEASE, STAGE 3 (MODERATE) Status: Chronic (12) Chronic diastolic (congestive) heart failure Code(s): I50.32 - CHRONIC DIASTOLIC (CONGESTIVE) HEART FAILURE Status: Chronic (13) Bacteremia due to Staphylococcus aureus Code(s): R78.81 - BACTEREMIA Status: Acute (14) Wound of left lower extremity Code(s): S81.802A - UNSPECIFIED OPEN WOUND, LEFT LOWER LEG, INITIAL ENCOUNTER Status: Acute - Plan cont current plan of care, continue antibiotics, social worker health services * ID recommendation noted. * will prefer IV antibiotics on discharge * will need PICC line * will need social work to arrange outpt IV antibiotics and wound care arrangement * medication reviewed as below * symptomatic treatment Review of Systems - Review of Systems Eyes: negative: Pain, Vision Change, Conjunctivae Inflammation, Eyelid Inflammation, Redness, Other ENT: negative: Ear Pain, Ear Discharge, Nose Pain, Nose Discharge, Nose Congestion, Mouth Pain, Mouth Swelling, Throat Pain, Throat Swelling, Other Respiratory: negative: Cough, Dry, Shortness of Breath, Hemoptysis, SOB with Excertion, Pleuritic Pain, Sputum, Wheezing Cardiovascular: negative: chest pain, palpitations, orthopnea, paroxysmal nocturnal dyspnea, edema, light headedness, other Gastrointestinal: negative: Nausea, Vomiting, Abdominal Pain, Diarrhea, Constipation, Melena, Hematochezia, Other Genitourinary: negative: Dysuria, Frequency, Incontinence, Hematuria, Retention , Other Musculoskeletal: negative: Neck Pain, Shoulder Pain, Arm Pain, Back Pain, Hand Pain, Leg Pain, Foot Pain, Other Skin: negative: Rash, Lesions, [place], Bruising, Other - Medications/Allergies Allergies/Adverse Reactions: Allergies Allergy/AdvReac Type Severity Reaction Status Date / Time adhesive Allergy Verified 07/24/17 22:46 Medications: Current Medications Acetaminophen (Tylenol) 650 mg PO Q4H PRN PRN Reason: Headache/Fever or Pain Last Admin: 07/28/17 18:57 Dose: 650 mg Hydrocodone Bitart/Acetaminophen ([place] 5/325) 1 tab PO Q4H PRN PRN Reason: Moderate Pain (4-6) Al Hydroxide/Mg Hydroxide (Maalox) 30 ml PO Q6H PRN PRN Reason: Heartburn or Indigestion Alogliptin Benzoate (Alogliptin) 25 mg PO QAM-[facility] Last Admin: 07/29/17 08:21 Dose: 25 mg Artificial Tears (Tears Naturale) 0 drop EA EYE PRN PRN PRN Reason: Dry Eyes Aspirin (Aspirin Chewable) 162 mg PO BID [facility] Last Admin: 07/29/17 21:02 Dose: 162 mg Atorvastatin Calcium (Lipitor) 40 mg PO HS [facility] Last Admin: 07/29/17 21:03 Dose: 40 mg Clonidine (Catapres) 0.1 mg PO BID [facility] Last Admin: 07/29/17 21:03 Dose: 0.1 mg Dextrose/Water (Dextrose 50%) 25 gm SLOW IVP PRN PRN PRN Reason: Hypoglycemia Enoxaparin Sodium (Lovenox) 40 mg SC 0900 [facility] Last Admin: 07/29/17 08:21 Dose: 40 mg Famotidine (Pepcid) 20 mg PO BID [facility] Last Admin: 07/29/17 21:03 Dose: 20 mg Furosemide (Lasix) 80 mg PO DAILY [facility] Last Admin: 07/29/17 08:22 Dose: 80 mg Glucagon (Glucagon) 1 mg IM PRN PRN PRN Reason: Hypoglycemia Guaifenesin (Robitussin Sf) 200 mg PO Q4H PRN PRN Reason: Cough Last Admin: 07/28/17 00:17 Dose: 200 mg Hydralazine HCl (Apresoline) 10 mg SLOW IVP Q4H PRN PRN Reason: Systolic BP > 180 Dextrose/Water (D5w) 1,000 mls @ 0 mls/hr IV .Q0M PRN; As Directed PRN Reason: Hypoglycemia Cefazolin Sodium 1 gm/ Syringe (2.5 ml/ Sterile Water) 10 mls @ 120 mls/hr SLOW IVP Q8HR [facility] Insulin Human Regular (Humulin R) 0 units SC .AGGRESSIVE SLIDING PRN PRN Reason: Aggressive Sliding Scale Last Admin: 07/29/17 17:36 Dose: 3 unit Lidocaine HCl (Xylocaine 4% Topical [place]ki) 2 ml TOP DAILY PRN PRN Reason: with dressing change Lisinopril (Zestril) 2.5 mg PO DAILY [facility] Last Admin: 07/29/17 08:22 Dose: 2.5 mg Loperamide HCl (Imodium) 2 mg PO PRN PRN PRN Reason: Diarrhea/Loose Stools Last Admin: 07/29/17 13:30 Dose: 2 mg Loratadine (Claritin) 10 mg PO DAILYPRN PRN PRN Reason: Sinus Symptoms Last Admin: 07/29/17 21:03 Dose: 10 mg Magnesium Hydroxide (Milk Of Magnesium) 30 ml PO DAILYPRN PRN PRN Reason: Constipation Last Admin: 07/26/17 20:56 Dose: 30 ml Metformin HCl (Glucophage Xr) 1,000 mg PO QAM-WM [facility] Last Admin: 07/29/17 08:22 Dose: 1,000 mg Metoprolol Tartrate (Lopressor) 25 mg PO BID [facility] Last Admin: 07/29/17 21:03 Dose: 25 mg Mineral Oil/White Petrolatum (Eucerin Cream) 0 gm TOP BIDPRN PRN PRN Reason: Dry Skin Morphine Sulfate (Morphine) 2 mg SLOW IVP Q4H PRN PRN Reason: Pain Last Admin: 07/26/17 09:50 Dose: 2 mg Nitroglycerin (Nitrostat) 0.4 mg SL Q5MIN PRN PRN Reason: Chest Pain Ondansetron HCl (Zofran Odt) 4 mg PO Q6H PRN PRN Reason: Nausea/Vomiting Oxycodone/Acetaminophen (Percocet 5/325) 1 tab PO Q4H PRN PRN Reason: Mild-Moderate Pain (1-5) Oxycodone/Acetaminophen (Percocet 5/325) 2 tab PO Q4H PRN PRN Reason: Moderate to Severe Pain (6-10) Last Admin: 07/29/17 13:28 Dose: 2 tab Phenol (Chloraseptic [place] 180 Ml Bot) 0 ml PO PRN PRN PRN Reason: Sore Throat Prasugrel (Effient) 10 mg PO DAILY [facility] Last Admin: 07/29/17 08:22 Dose: 10 mg Rifampin (Rifadin) 300 mg PO 1000,2200 [facility] Last Admin: 07/29/17 21:03 Dose: 300 mg Saccharomyces Boulardii (Florastor) 250 mg PO DAILY [facility] Last Admin: 07/29/17 08:22 Dose: 250 mg Senna (Senokot) 2 tab PO HSPRN PRN PRN Reason: Constipation Sodium Chloride (Flush - Normal Saline) 10 ml IVF Q12HR [facility] Last Admin: 07/30/17 00:56 Dose: 10 ml Sodium Chloride (Flush - Normal Saline) 10 ml IVF PRN PRN PRN Reason: Saline Flush Last Admin: 07/29/17 03:11 Dose: 10 ml Sodium Chloride ([place] Nasal [place] 0.65%) 0 ml EA NARE QIDPRN PRN PRN Reason: Nasal Congestion
[2017-07-30] MEDS: Lisinopril 2.5 MG TAB PO SCH (09:51)
[2017-07-30] MEDS: Saccharomyces boulardii 250 MG CAP PO SCH (09:51)
[2017-07-30] MEDS: Alogliptin 25 MG TAB PO SCH (09:51)
[2017-07-30] MEDS: Prasugrel 10 MG TAB PO SCH (09:51)
[2017-07-30] MEDS: cloNIDine 0.1 MG TAB PO SCH ×2 (09:51→21:25)
[2017-07-30] MEDS: Rifampin 300 MG CAP PO SCH ×2 (09:52→21:26)
[2017-07-30] MEDS: Famotidine 20 MG TAB PO SCH ×2 (09:52→21:25)
[2017-07-30] MEDS: Metoprolol Tartrate 25 MG TAB PO SCH ×2 (09:52→21:25)
[2017-07-30] MEDS: Furosemide 80 MG TAB PO SCH (09:52)
[2017-07-30] MEDS: metFORMIN XR 500 MG TAB PO SCH (09:52)
[2017-07-30] MEDS: Enoxaparin Sodium 40 MG/0.4 ML SYRINGE SC SCH (09:52)
[2017-07-30] MEDS: cefTRIAXone\\ROCEPHIN 2 GM in Sodium Chloride 0.9% 100 ML IVPB SCH (10:24)
[2017-07-30] MEDS: HYDROcodone/Acetaminophen 5/325 mg Tablet PO PRN ×3 (10:51→19:39)
[2017-07-30] MEDS: Morphine 2 MG/ML SYRINGE SLOW IVP PRN (10:51)
[2017-07-30] MEDS ORDERED: CEFAZOLIN 1 GM in Sodium Chloride 0.9% 100 ML IVPB SCH (14:00)
[2017-07-30] MEDS: CEFAZOLIN 1 GM, Syringe 2.5 ML in Sterile Water 7.5 ML SLOW IVP SCH ×2 (15:14→21:30)
--- NOTE | 2017-07-30 16:22 | SPC ---
SONOGRAPHIC GUIDED RIGHT UPPER EXTREMITY PICC PLACEMENT: History: Infection. Need for long-term antibiotic. FINDINGS: After explaining the procedure and answering all questions, the right upper extremity was prepped and draped in the usual sterile fashion. Sterile technique, local anesthesia, sonographic guidance, and a 22 gauge needle were used to carefully access the right brachial vein. Standard technique was then used to place the tip of a 5 [place] single lumen PICC so that the tip lies at the level of the cavoat rial junction. The catheter was flushed and secured externally. The patient tolerated the procedure w ell and was returned in unchanged condition. IMPRESSION: Technically successful right upper extremity PICC placement. Catheter is now ready for use. POS: CHARISSA
[2017-07-30] MEDS: Loperamide HCl 2 MG CAP PO PRN (17:27)
[2017-07-30] MEDS: Loratadine 10 MG TAB PO PRN (19:39)
[2017-07-30] MEDS: Atorvastatin Calcium 40 MG TAB PO SCH (21:25)
[2017-07-31] MEDS: CEFAZOLIN 1 GM, Syringe 2.5 ML in Sterile Water 7.5 ML SLOW IVP SCH ×3 (05:04→21:43)
[2017-07-31] MEDS: Prasugrel 10 MG TAB PO SCH (07:57)
[2017-07-31] MEDS: Saccharomyces boulardii 250 MG CAP PO SCH (07:57)
[2017-07-31] MEDS: HYDROcodone/Acetaminophen 5/325 mg Tablet PO PRN ×2 (07:58→17:36)
[2017-07-31] MEDS: Alogliptin 25 MG TAB PO SCH (07:58)
[2017-07-31] MEDS: metFORMIN XR 500 MG TAB PO SCH (07:59)
[2017-07-31] MEDS: Furosemide 80 MG TAB PO SCH (07:59)
[2017-07-31] MEDS: Lisinopril 2.5 MG TAB PO SCH (07:59)
[2017-07-31] MEDS: Enoxaparin Sodium 40 MG/0.4 ML SYRINGE SC SCH (08:00)
[2017-07-31] MEDS: Famotidine 20 MG TAB PO SCH ×2 (08:00→21:39)
[2017-07-31] MEDS: Metoprolol Tartrate 25 MG TAB PO SCH ×2 (08:00→21:42)
[2017-07-31] MEDS: cloNIDine 0.1 MG TAB PO SCH ×2 (08:00→21:42)
--- NOTE | 2017-07-31 09:20 | PDOC.PN ---
- Subjective Encounter Start Date: 07/31/17 Encounter Start Time: 08:10 Patient seen and examined. No new complaints. No overnight events - Objective Resuscitation Status: Resuscitation Status FULL:Full Resuscitation MAR Reviewed: Yes Vital Signs & Weight: Vital Signs (12 hours) Temp Pulse Resp BP BP Pulse Ox 07/31/17 08:08 98 F 77 18 172/73 H 96 07/31/17 08:00 132/61 07/31/17 04:00 98.7 F 77 16 136/63 95 07/30/17 21:25 132/61 Weight Admit Weight 301 lb 9 oz Weight 294 lb I&O: 07/30/17 07/31/17 08/01/17 06:59 06:59 06:59 Intake Total 960 1200 Output Total 2100 1900 Balance -1140 -700 Result Diagrams: 07/28/17 05:21 07/28/17 05:21 Additional Labs: Accuchecks 07/31/17 07/30/17 07/30/17 05:48 20:51 16:40 POC Glucose 158 H 203 H 164 H 07/30/17 10:32 POC Glucose 190 H EKG Reviewed by me: Yes (nsr) Phys Exam - Physical Examination Constitutional: NAD HEENT: PERRLA, moist MMs, sclera anicteric Neck: no JVD, supple Respiratory: no wheezing, no rales, no rhonchi Cardiovascular: RRR, no significant murmur, no rub wound vac in place Gastrointestinal: soft, non-tender, no distention, positive bowel sounds Musculoskeletal: no edema, pulses present wound with dressing Neurological: non-focal, normal sensation, moves all 4 limbs Lymphatic: no nodes Psychiatric: normal affect Skin: no rash, normal turgor Dx/Plan (1) Sternal wound infection Code(s): [id number] - Status: Acute (2) Sepsis Code(s): A41.9 - SEPSIS, UNSPECIFIED ORGANISM Status: Acute (3) Hyperkalemia Code(s): E87.5 - HYPERKALEMIA Status: Acute Comment: mild (4) Ischemic cardiomyopathy Code(s): I25.5 - ISCHEMIC CARDIOMYOPATHY Status: Chronic (5) Anemia, normocytic normochromic Code(s): D64.9 - ANEMIA, UNSPECIFIED Status: Chronic (6) CAD (coronary artery disease) Code(s): I25.10 - ATHSCL HEART DISEASE OF [place] CORONARY ARTERY W/O ANG PCTRS Status: Chronic (7) Diabetes type 2, controlled Code(s): E11.9 - TYPE 2 DIABETES MELLITUS WITHOUT COMPLICATIONS Status: Chronic (8) Dyslipidemia Code(s): E78.5 - HYPERLIPIDEMIA, UNSPECIFIED Status: Chronic (9) Hypertension Code(s): I10 - ESSENTIAL (PRIMARY) HYPERTENSION Status: Chronic (10) Morbid obesity with BMI of 45.0-49.9, adult Code(s): E66.01 - MORBID (SEVERE) OBESITY DUE TO EXCESS CALORIES; Z68.42 - BODY MASS INDEX (BMI) 45.0-49.9, ADULT Status: Chronic (11) CKD (chronic kidney disease) stage 3, GFR 30-59 ml/min Code(s): N18.3 - CHRONIC KIDNEY DISEASE, STAGE 3 (MODERATE) Status: Chronic (12) Chronic diastolic (congestive) heart failure Code(s): I50.32 - CHRONIC DIASTOLIC (CONGESTIVE) HEART FAILURE Status: Chronic (13) Bacteremia due to Staphylococcus aureus Code(s): R78.81 - BACTEREMIA Status: Acute (14) Wound of left lower extremity Code(s): S81.802A - UNSPECIFIED OPEN WOUND, LEFT LOWER LEG, INITIAL ENCOUNTER Status: Acute - Plan cont current plan of care, plan discussed w/ family, continue antibiotics, social sciences lecturer * case maker to arrange outpt iv antibiotics and outpt wound care * medication reviewed as below * symptomatic treatment * continue ancef * discussed with . Review of Systems - Review of Systems ENT: negative: Ear Pain, Ear Discharge, Nose Pain, Nose Discharge, Nose Congestion, Mouth Pain, Mouth Swelling, Throat Pain, Throat Swelling, Other Respiratory: negative: Cough, Dry, Shortness of Breath, Hemoptysis, SOB with Excertion, Pleuritic Pain, Sputum, Wheezing Cardiovascular: negative: chest pain, palpitations, orthopnea, paroxysmal nocturnal dyspnea, edema, light headedness, other Gastrointestinal: negative: Nausea, Vomiting, Abdominal Pain, Diarrhea, Constipation, Melena, Hematochezia, Other Genitourinary: negative: Dysuria, Frequency, Incontinence, Hematuria, Retention , Other Musculoskeletal: negative: Neck Pain, Shoulder Pain, Arm Pain, Back Pain, Hand Pain, Leg Pain, Foot Pain, Other - Medications/Allergies Allergies/Adverse Reactions: Allergies Allergy/AdvReac Type Severity Reaction Status Date / Time adhesive Allergy Verified 07/24/17 22:46 Medications: Current Medications Acetaminophen (Tylenol) 650 mg PO Q4H PRN PRN Reason: Headache/Fever or Pain Last Admin: 07/28/17 18:57 Dose: 650 mg Hydrocodone Bitart/Acetaminophen ([place] 5/325) 1 tab PO Q4H PRN PRN Reason: Moderate Pain (4-6) Last Admin: 07/31/17 07:58 Dose: 1 tab Al Hydroxide/Mg Hydroxide (Maalox) 30 ml PO Q6H PRN PRN Reason: Heartburn or Indigestion Alogliptin Benzoate (Alogliptin) 25 mg PO QAM-WM [facility] Last Admin: 07/31/17 07:58 Dose: 25 mg Artificial Tears (Tears Naturale) 0 drop EA EYE PRN PRN PRN Reason: Dry Eyes Aspirin (Aspirin Chewable) 162 mg PO BID [facility] Last Admin: 07/31/17 07:58 Dose: 162 mg Atorvastatin Calcium (Lipitor) 40 mg PO HS [facility] Last Admin: 07/30/17 21:25 Dose: 40 mg Clonidine (Catapres) 0.1 mg PO BID [facility] Last Admin: 07/31/17 08:00 Dose: 0.1 mg Dextrose/Water (Dextrose 50%) 25 gm SLOW IVP PRN PRN PRN Reason: Hypoglycemia Enoxaparin Sodium (Lovenox) 40 mg SC 0900 [facility] Last Admin: 07/31/17 08:00 Dose: 40 mg Famotidine (Pepcid) 20 mg PO BID [facility] Last Admin: 07/31/17 08:00 Dose: 20 mg Furosemide (Lasix) 80 mg PO DAILY [facility] Last Admin: 07/31/17 07:59 Dose: 80 mg Glucagon (Glucagon) 1 mg IM PRN PRN PRN Reason: Hypoglycemia Guaifenesin (Robitussin Sf) 200 mg PO Q4H PRN PRN Reason: Cough Last Admin: 07/28/17 00:17 Dose: 200 mg Hydralazine HCl (Apresoline) 10 mg SLOW IVP Q4H PRN PRN Reason: Systolic BP > 180 Dextrose/Water (D5w) 1,000 mls @ 0 mls/hr IV .Q0M PRN; As Directed PRN Reason: Hypoglycemia Cefazolin Sodium 1 gm/ Syringe (2.5 ml/ Sterile Water) 10 mls @ 120 mls/hr SLOW IVP Q8HR [facility] Last Admin: 07/31/17 05:04 Dose: 10 mls Insulin Human Regular (Humulin R) 0 units SC .AGGRESSIVE SLIDING PRN PRN Reason: Aggressive Sliding Scale Last Admin: 07/29/17 17:36 Dose: 3 unit Lidocaine HCl (Xylocaine 4% Topical Nikki) 2 ml TOP DAILY PRN PRN Reason: with dressing change Lisinopril (Zestril) 2.5 mg PO DAILY [facility] Last Admin: 07/31/17 07:59 Dose: 2.5 mg Loperamide HCl (Imodium) 2 mg PO PRN PRN PRN Reason: Diarrhea/Loose Stools Last Admin: 07/30/17 17:27 Dose: 2 mg Loratadine (Claritin) 10 mg PO DAILYPRN PRN PRN Reason: Sinus Symptoms Last Admin: 07/30/17 19:39 Dose: 10 mg Magnesium Hydroxide (Milk Of Magnesium) 30 ml PO DAILYPRN PRN PRN Reason: Constipation Last Admin: 07/26/17 20:56 Dose: 30 ml Metformin HCl (Glucophage Xr) 1,000 mg PO QAM-[facility] Last Admin: 07/31/17 07:59 Dose: 1,000 mg Metoprolol Tartrate (Lopressor) 25 mg PO BID [facility] Last Admin: 07/31/17 08:00 Dose: 25 mg Mineral Oil/White Petrolatum (Eucerin Cream) 0 gm TOP BIDPRN PRN PRN Reason: Dry Skin Morphine Sulfate (Morphine) 2 mg SLOW IVP Q4H PRN PRN Reason: Pain Last Admin: 07/30/17 10:51 Dose: 2 mg Nitroglycerin (Nitrostat) 0.4 mg SL Q5MIN PRN PRN Reason: Chest Pain Ondansetron HCl (Zofran Odt) 4 mg PO Q6H PRN PRN Reason: Nausea/Vomiting Oxycodone/Acetaminophen (Percocet 5/325) 1 tab PO Q4H PRN PRN Reason: Mild-Moderate Pain (1-5) Oxycodone/Acetaminophen (Percocet 5/325) 2 tab PO Q4H PRN PRN Reason: Moderate to Severe Pain (6-10) Last Admin: 07/29/17 13:28 Dose: 2 tab Phenol (Chloraseptic [place] 180 Ml Bot) 0 ml PO PRN PRN PRN Reason: Sore Throat Prasugrel (Effient) 10 mg PO DAILY [facility] Last Admin: 07/31/17 07:57 Dose: 10 mg Rifampin (Rifadin) 300 mg PO 1000,2200 [facility] Last Admin: 07/30/17 21:26 Dose: 300 mg Saccharomyces Boulardii (Florastor) 250 mg PO DAILY [facility] Last Admin: 07/31/17 07:57 Dose: 250 mg Senna (Senokot) 2 tab PO HSPRN PRN PRN Reason: Constipation Sodium Chloride (Flush - Normal Saline) 10 ml IVF Q12HR [facility] Last Admin: 07/30/17 21:28 Dose: 10 ml Sodium Chloride (Flush - Normal Saline) 10 ml IVF PRN PRN PRN Reason: Saline Flush Last Admin: 07/29/17 03:11 Dose: 10 ml Sodium Chloride ([place] Nasal [place] 0.65%) 0 ml EA NARE QIDPRN PRN PRN Reason: Nasal Congestion
[2017-07-31] MEDS: Rifampin 300 MG CAP PO SCH ×2 (10:33→21:39)
[2017-07-31] MEDS: Loperamide HCl 2 MG CAP PO PRN ×2 (11:21→12:31)
[2017-07-31] MEDS: Acetaminophen 325 MG TAB PO PRN (17:37)
--- NOTE | 2017-07-31 17:39 | PRG ---
DATE OF SERVICE: 07/31/2017 SUBJECTIVE: Feeling less pain, no dyspnea, no cough, no abdominal pain or diarrhea. OBJECTIVE: VITAL SIGNS: T-max 100.1, currently 98.5, blood pressure 130/63, pulse 89. GENERAL: Awake, alert, oriented. HEENT: Somewhat pale conjunctivae, oral cavity moist, no lesions. LUNGS: With symmetric clear breath sounds. CARDIOVASCULAR: Negative pressure dressing in the sternotomy site. EXTREMITIES: Common dressing in the left leg ulcer. Peripheral IV access has been removed. She has a PICC line in place at this time. LABORATORY DATA: White cell count 8.9, hemoglobin 8, platelets 319. Last creatinine 1.09 three days ago. Microbiology has been discussed. ASSESSMENT AND DISCUSSION: Obesity, coronary artery disease with recent bypass graft surgery, sterno alexa site infection secondary to methicillin-sensitive Staph aureus and one sample with Peptostreptoc occus as well. Patient had a limited debridement and has a negative pressure dressing in place. At this time, we will continue cefazolin 2 grams q.8 hours, add rifampin to treat for 42 days and date o f therapy will be 09/13/2017, weekly labs. If there is recrudescence of the process, the patient noreen l need a more extensive debridement, removal of wires and a muscle flap.
[2017-07-31] MEDS: Atorvastatin Calcium 40 MG TAB PO SCH (21:38)
[2017-07-31] MEDS: Loratadine 10 MG TAB PO PRN (21:39)
[2017-07-31] MEDS: Insulin Regular 300 UNITS/3 ML VIAL SC PRN (22:45)
[2017-08-01] MEDS: CEFAZOLIN 1 GM, Syringe 2.5 ML in Sterile Water 7.5 ML SLOW IVP SCH (06:32)
[2017-08-01 07:15] LABS: #Eosinphils 0.1 thou/uL (0.0-0.7); #Lymphocytes 1.3 thou/uL (1.20-3.40); #Monocytes 0.7 thou/uL (0.11-0.59); #Neutrophils 7.9 thou/uL (1.40-6.50); %Basophils 0.3 % (0.0-1.0); %Eosinophils 1.3 % (0.0-10.0); %Lymphocytes 12.9 % (21.0-51.0); %Monocytes 7.1 % (0.0-10.0); %Neutrophils 78.4 % (42.0-75.0); Hemoglobin 8.4 g/dL (12.0-16.0); Mean Corpuscular HGB CONC 30.8 g/dL (32.0-36.0); Mean Corpuscular Hemoglobin 27.5 pg (27.0-31.0); Mean Corpuscular Volume 89.2 fl (81.0-99.0); Mean Platelet Volume 7.4 fL (7.4-10.4); Platelet Count 303 thou/uL (130-400); RBC Distribution Width 16.3 % (11.5-14.5); Red Blood Cell (RBC) Count 3.06 mill/uL (4.20-5.40)
[2017-08-01] MEDS ORDERED: CEFAZOLIN 1 GM, Syringe 2.5 ML in Sterile Water 7.5 ML SLOW IVP SCH (07:15)
[2017-08-01 07:39] LABS: ALT (SGPT) Less than 7 U/L (8-55); AST (SGOT) 7 U/L (5-34); Albumin 2.4 g/dL (3.5-5.0); Alkaline Phosphatase 98 U/L (40-150); Anion Gap 12 mmol/L (10-20); BUN (Urea Nitrogen) 24 mg/dL (9.8-20.1); Bilirubin, Total 0.2 mg/dL (0.2-1.2); CRP (Inflammatory) 6.58 mg/dL (= or < 0.5); Calc. Creatinine Clearance 141 mL/min (70-130); Calcium 8.4 mg/dL (7.8-10.44); Carbon Dioxide 29 mmol/L (22-29); Chloride 103 mmol/L (98-107); Estimated GFR-MDRD 66; Glucose 129 mg/dL (70-105); Potassium 3.9 mmol/L (3.5-5.1); Protein, Total 6.4 g/dL (6.0-8.3); Sodium 140 mmol/L (136-145)
[2017-08-01] MEDS: metFORMIN XR 500 MG TAB PO SCH (08:09)
[2017-08-01] MEDS: Saccharomyces boulardii 250 MG CAP PO SCH (08:09)
[2017-08-01] MEDS: cloNIDine 0.1 MG TAB PO SCH (08:09)
[2017-08-01] MEDS: Alogliptin 25 MG TAB PO SCH (08:09)
[2017-08-01] MEDS: Metoprolol Tartrate 25 MG TAB PO SCH (08:10)
[2017-08-01] MEDS: Furosemide 80 MG TAB PO SCH (08:10)
[2017-08-01] MEDS: Famotidine 20 MG TAB PO SCH (08:10)
[2017-08-01] MEDS: Acetaminophen 325 MG TAB PO PRN (08:10)
[2017-08-01] MEDS: Lisinopril 2.5 MG TAB PO SCH (08:10)
[2017-08-01] MEDS: Enoxaparin Sodium 40 MG/0.4 ML SYRINGE SC SCH (08:10)
[2017-08-01] MEDS: Prasugrel 10 MG TAB PO SCH (08:10)
--- NOTE | 2017-08-01 09:49 | DIS ---
PRIMARY CARE PHYSICIAN: Dr. Tor Limon DATE OF ADMISSION: 07/24/2017 DATE OF DISCHARGE: 08/01/2017 DISCHARGE DISPOSITION: Home with home health with outpatient IV antibiotic therapy and wound care. PRIMARY DISCHARGE DIAGNOSES: 1. Postoperative sternal wound infection, status post incision and drainage. 2. Sepsis due to problem #1. 3. Bacteremia due to methicillin-susceptible Staphylococcus aureus. 4. Hyperkalemia on admission, resolved. 5. Wound over left lower extremity. SECONDARY DISCHARGE DIAGNOSES: Morbid obesity with BMI 48. cardiomyopathy, hypertension, dyslipidem ia, diabetes type 2, chronic kidney disease stage 3, chronic diastolic heart failure, coronary artery disease, required coronary artery bypass graft, anemia, normocytic, normochromic. PRIMARY PROCEDURE/OPERATION: 1. I&D of sternal wound by Dr. Matute. 2. PICC line placement on 07/30/2017. RADIOLOGICAL INVESTIGATION: Chest x-ray, echocardiography showed EF 50-55% with diastolic dysfunctio n. SIGNIFICANT LABS: WBC 10.0, hemoglobin 8.4, platelets 303. INR 1.3. Sodium 140, potassium 3.9, BUN 24, creatinine 0.88, calcium 8.4, AST 7, ALT less than 7, alkaline phosphatase is 98, albumin 2.4. CRP 6.58. Urinalysis: Leukocyte esterase, small. Wound culture grew MSSA Peptostreptococcus. DISCHARGE MEDICATIONS: Aspirin 162 mg b.i.d., atorvastatin 40 mg p.o. at bedtime, Ancef 2 grams IV q .8h. until 09/13/2017. Clonidine ER 0.1 mg p.o. b.i.d., Pepcid 20 mg p.o. b.i.d., Lasix 80 mg p.o. daily, Tresiba insulin 40 units subcu at bedtime, Lisinopril 2.5 mg p.o. daily, metoprolol tartrate 2 5 mg p.o. b.i.d., Effient 10 mg p.o. daily, Rifadin 300 mg p.o. b.i.d. for 42 days, Florastor 250 mg p.o. daily for 42 days. Janumet 1 tablet p.o. daily. CONTRAINDICATIONS: None. CODE STATUS: FULL CODE. INPATIENT CONSULTANTS: Dr. Matute was following while in hospital. Dr. Prescott was consulted mike muñoz in hospital. TEST RESULTS PENDING ON DISCHARGE: None. DISCHARGE PLAN: Post hospital, the patient will follow up with Dr. Matute as instructed, Dr. López and primary care physician. The patient will follow up with [facility] as well as home he alth. HOSPITAL COURSE: A 61-year-old female who had recently CABG done by Dr. Matute. Postoperativel y the patient's wound got infected in the sternum. She had a minor I&D done on an outpatient basis a s well as the patient was on oral antibiotic therapy without improvement. The patient was having mor e drainage over sternal wound and that is why she was admitted to [facility], but as they do n ot have any aggressive wound care available locally there, that is why this patient was directly admi tted in our hospital under us. We consulted Dr. Matute who did I&D. The patient required wound VAC over her surgical wound. The patient also has wound over lower extremity which was taken care o f by Wound Care Team with wound care. The patient was getting broad spectrum antibiotic therapy with vancomycin and Zosyn initially, but subsequently based on culture result, we changed to Ancef q.8h. The patient also had mild hyperkalemia that was resolved while in hospital. The patient was treate d with her home medication while in hospital as well as we aggressively controlled her diabetes well as well. The patient's blood culture was positive for MSSA and wound culture was also positive for M SSA. We consulted Dr. Prescott and he was preferring IV antibiotic therapy on discharge and that is why a PICC line was placed. Surgeon was also okay with IV antibiotic therapy. With help of case manage r, we are arranging outpatient IV antibiotic therapy, as well as wound care. Once arrangement is completed and her insurance approves then we will consider discharging her later on today. PHYSICAL EXAMINATION: The patient is seen and examined at bedside today. VITAL SIGNS: Currently, temperature 98.2, pulse 84, respiratory rate 16, saturation 96% on room air, blood pressure 152/69, weight 290 pound. GENERAL: The patient is currently alert, awake, in no acute distress. HEAD: Normocephalic, atraumatic. EYES: Pupils round, reactive to light. Extraocular muscle intact. ENT: Oropharynx within normal limits. Moist mucous membranes. No oral lesion, no pharyngeal erythe ma, no exudate. NECK: Supple, no JVD, no thyromegaly, no carotid bruit. LUNGS: Clear without any rhonchi or rales. CARDIAC: S1 and S2 are regular without any murmur. ABDOMEN: Soft and benign. Obesity present. EXTREMITIES: Wound on lower extremity covered with a dressing. Chest wall wound is with a wound VAC . NEUROLOGIC: Nonfocal examination. Today plan of care discussed with the patient and the patient's . All questions answered. Yuki parker plan discussed with them in detail. New medication sent to her pharmacy. All review of system reviewed with her and negative.
[2017-08-01] MEDS: HYDROcodone/Acetaminophen 5/325 mg Tablet PO PRN (10:14)
[2017-08-01] MEDS: Rifampin 300 MG CAP PO SCH (10:14)
[2017-08-01 11:16] VITALS: BP 133/61; TEMP 98.3
--- NOTE | 2017-08-01 11:48 | PDOC.PN ---
- Subjective Encounter Start Date: 08/01/17 Encounter Start Time: 07:45 Patient seen and examined. No new complaints. No overnight events - Objective Resuscitation Status: Resuscitation Status FULL:Full Resuscitation MAR Reviewed: Yes Vital Signs & Weight: Vital Signs (12 hours) Temp Pulse Resp BP BP Pulse Ox 08/01/17 11:16 98.3 F 83 18 133/61 99 08/01/17 08:10 80 08/01/17 08:09 152/69 H 08/01/17 08:00 98.2 F 84 18 152/69 H 96 08/01/17 05:30 99.1 F 80 19 164/51 H 98 08/01/17 00:00 99.4 F 78 20 113/57 L 95 Weight Admit Weight 301 lb 9 oz Weight 290 lb I&O: 07/31/17 08/01/17 08/02/17 06:59 06:59 06:59 Intake Total 1200 1200 Output Total 1900 1700 Balance -700 -500 Result Diagrams: 08/01/17 07:05 08/01/17 07:05 Additional Labs: Accuchecks 08/01/17 07/31/17 07/31/17 05:31 20:49 16:45 POC Glucose 115 H 240 H 207 H 07/31/17 11:48 POC Glucose 189 H EKG Reviewed by me: Yes Phys Exam - Physical Examination Constitutional: NAD HEENT: PERRLA, moist MMs, sclera anicteric Neck: no JVD, supple Respiratory: no wheezing, no rales, no rhonchi Cardiovascular: RRR, no significant murmur, no rub wound vac in place Gastrointestinal: soft, non-tender, no distention, positive bowel sounds Musculoskeletal: no edema, pulses present wound with dressing on left leg Neurological: non-focal, normal sensation, moves all 4 limbs Psychiatric: normal affect, A&O x 3 Skin: no rash, normal turgor Dx/Plan (1) Sternal wound infection Code(s): HTR3968 - Status: Acute (2) Sepsis Code(s): A41.9 - SEPSIS, UNSPECIFIED ORGANISM Status: Acute (3) Hyperkalemia Code(s): E87.5 - HYPERKALEMIA Status: Acute Comment: mild (4) Ischemic cardiomyopathy Code(s): I25.5 - ISCHEMIC CARDIOMYOPATHY Status: Chronic (5) Anemia, normocytic normochromic Code(s): D64.9 - ANEMIA, UNSPECIFIED Status: Chronic (6) CAD (coronary artery disease) Code(s): I25.10 - ATHSCL HEART DISEASE OF [place] CORONARY ARTERY W/O ANG PCTRS Status: Chronic (7) Diabetes type 2, controlled Code(s): E11.9 - TYPE 2 DIABETES MELLITUS WITHOUT COMPLICATIONS Status: Chronic (8) Dyslipidemia Code(s): E78.5 - HYPERLIPIDEMIA, UNSPECIFIED Status: Chronic (9) Hypertension Code(s): I10 - ESSENTIAL (PRIMARY) HYPERTENSION Status: Chronic (10) Morbid obesity with BMI of 45.0-49.9, adult Code(s): E66.01 - MORBID (SEVERE) OBESITY DUE TO EXCESS CALORIES; Z68.42 - BODY MASS INDEX (BMI) 45.0-49.9, ADULT Status: Chronic (11) CKD (chronic kidney disease) stage 3, GFR 30-59 ml/min Code(s): N18.3 - CHRONIC KIDNEY DISEASE, STAGE 3 (MODERATE) Status: Chronic (12) Chronic diastolic (congestive) heart failure Code(s): I50.32 - CHRONIC DIASTOLIC (CONGESTIVE) HEART FAILURE Status: Chronic (13) Bacteremia due to Staphylococcus aureus Code(s): R78.81 - BACTEREMIA Status: Acute (14) Wound of left lower extremity Code(s): S81.802A - UNSPECIFIED OPEN WOUND, LEFT LOWER LEG, INITIAL ENCOUNTER Status: Acute - Plan cont current plan of care, 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 Review of Systems - Review of Systems ENT: negative: Ear Pain, Ear Discharge, Nose Pain, Nose Discharge, Nose Congestion, Mouth Pain, Mouth Swelling, Throat Pain, Throat Swelling, Other Respiratory: negative: Cough, Dry, Shortness of Breath, Hemoptysis, SOB with Excertion, Pleuritic Pain, Sputum, Wheezing Cardiovascular: negative: chest pain, palpitations, orthopnea, paroxysmal nocturnal dyspnea, edema, light headedness, other Gastrointestinal: negative: Nausea, Vomiting, Abdominal Pain, Diarrhea, Constipation, Melena, Hematochezia, Other Genitourinary: negative: Dysuria, Frequency, Incontinence, Hematuria, Retention , Other Musculoskeletal: negative: Neck Pain, Shoulder Pain, Arm Pain, Back Pain, Hand Pain, Leg Pain, Foot Pain, Other - Medications/Allergies Allergies/Adverse Reactions: Allergies Allergy/AdvReac Type Severity Reaction Status Date / Time adhesive Allergy Verified 07/24/17 22:46 Medications: Current Medications Acetaminophen (Tylenol) 650 mg PO Q4H PRN PRN Reason: Headache/Fever or Pain Last Admin: 08/01/17 08:10 Dose: 650 mg Hydrocodone Bitart/Acetaminophen ([place] 5/325) 1 tab PO Q4H PRN PRN Reason: Moderate Pain (4-6) Last Admin: 08/01/17 10:14 Dose: 1 tab Al Hydroxide/Mg Hydroxide (Maalox) 30 ml PO Q6H PRN PRN Reason: Heartburn or Indigestion Alogliptin Benzoate (Alogliptin) 25 mg PO QAM[facility] Last Admin: 08/01/17 08:09 Dose: 25 mg Artificial Tears (Tears Naturale) 0 drop EA EYE PRN PRN PRN Reason: Dry Eyes Aspirin (Aspirin Chewable) 162 mg PO BID [facility] Last Admin: 08/01/17 08:10 Dose: 162 mg Atorvastatin Calcium (Lipitor) 40 mg PO HS [facility] Last Admin: 07/31/17 21:38 Dose: 40 mg Clonidine (Catapres) 0.1 mg PO BID [facility] Last Admin: 08/01/17 08:09 Dose: 0.1 mg Dextrose/Water (Dextrose 50%) 25 gm SLOW IVP PRN PRN PRN Reason: Hypoglycemia Enoxaparin Sodium (Lovenox) 40 mg SC 0900 [facility] Last Admin: 08/01/17 08:10 Dose: 40 mg Famotidine (Pepcid) 20 mg PO BID [facility] Last Admin: 08/01/17 08:10 Dose: 20 mg Furosemide (Lasix) 80 mg PO DAILY [facility] Last Admin: 08/01/17 08:10 Dose: 80 mg Glucagon (Glucagon) 1 mg IM PRN PRN PRN Reason: Hypoglycemia Guaifenesin (Robitussin Sf) 200 mg PO Q4H PRN PRN Reason: Cough Last Admin: 07/28/17 00:17 Dose: 200 mg Hydralazine HCl (Apresoline) 10 mg SLOW IVP Q4H PRN PRN Reason: Systolic BP > 180 Dextrose/Water (D5w) 1,000 mls @ 0 mls/hr IV .Q0M PRN; As Directed PRN Reason: Hypoglycemia Cefazolin Sodium 2 gm/ Syringe (2.5 ml/ Sterile Water) 10 mls @ 120 mls/hr SLOW IVP Q8HR [facility] Insulin Human Regular (Humulin R) 0 units SC .AGGRESSIVE SLIDING PRN PRN Reason: Aggressive Sliding Scale Last Admin: 07/31/17 22:45 Dose: 6 unit Lidocaine HCl (Xylocaine 4% Topical Nikki) 2 ml TOP DAILY PRN PRN Reason: with dressing change Lisinopril (Zestril) 2.5 mg PO DAILY [facility] Last Admin: 08/01/17 08:10 Dose: 2.5 mg Loperamide HCl (Imodium) 2 mg PO PRN PRN PRN Reason: Diarrhea/Loose Stools Last Admin: 07/31/17 12:31 Dose: 2 mg Loratadine (Claritin) 10 mg PO DAILYPRN PRN PRN Reason: Sinus Symptoms Last Admin: 07/31/17 21:39 Dose: 10 mg Magnesium Hydroxide (Milk Of Magnesium) 30 ml PO DAILYPRN PRN PRN Reason: Constipation Last Admin: 07/26/17 20:56 Dose: 30 ml Metformin HCl (Glucophage Xr) 1,000 mg PO QAM-[facility] Last Admin: 08/01/17 08:09 Dose: 1,000 mg Metoprolol Tartrate (Lopressor) 25 mg PO BID [facility] Last Admin: 08/01/17 08:10 Dose: 25 mg Mineral Oil/White Petrolatum (Eucerin Cream) 0 gm TOP BIDPRN PRN PRN Reason: Dry Skin Morphine Sulfate (Morphine) 2 mg SLOW IVP Q4H PRN PRN Reason: Pain Last Admin: 07/30/17 10:51 Dose: 2 mg Nitroglycerin (Nitrostat) 0.4 mg SL Q5MIN PRN PRN Reason: Chest Pain Ondansetron HCl (Zofran Odt) 4 mg PO Q6H PRN PRN Reason: Nausea/Vomiting Oxycodone/Acetaminophen (Percocet 5/325) 1 tab PO Q4H PRN PRN Reason: Mild-Moderate Pain (1-5) Oxycodone/Acetaminophen (Percocet 5/325) 2 tab PO Q4H PRN PRN Reason: Moderate to Severe Pain (6-10) Last Admin: 07/29/17 13:28 Dose: 2 tab Phenol (Chloraseptic [place] 180 Ml Bot) 0 ml PO PRN PRN PRN Reason: Sore Throat Prasugrel (Effient) 10 mg PO DAILY [facility] Last Admin: 08/01/17 08:10 Dose: 10 mg Rifampin (Rifadin) 300 mg PO 1000,2200 [facility] Last Admin: 08/01/17 10:14 Dose: 300 mg Saccharomyces Boulardii (Florastor) 250 mg PO DAILY [facility] Last Admin: 08/01/17 08:09 Dose: 250 mg Senna (Senokot) 2 tab PO HSPRN PRN PRN Reason: Constipation Sodium Chloride (Flush - Normal Saline) 10 ml IVF Q12HR [facility] Last Admin: 08/01/17 08:10 Dose: 10 ml Sodium Chloride (Flush - Normal Saline) 10 ml IVF PRN PRN PRN Reason: Saline Flush Last Admin: 07/29/17 03:11 Dose: 10 ml Sodium Chloride ([place] Nasal [place] 0.65%) 0 ml EA NARE QIDPRN PRN PRN Reason: Nasal Congestion
[2017-08-01] MEDS ORDERED: STERILE WATER SLOW IVP SCH (14:00)
[2017-08-01] MEDS ORDERED: CEFAZOLIN SLOW IVP SCH (14:00)
== END 2017-08-01 14:36 | disposition home health service (06) | DRG 856 ==
LOC: 2NO 17:43
PROVIDERS: ADMIT Internal Medicine; ATTEND Internal Medicine
PROC: 0JB60ZZ Excision of Chest Subcutaneous Tissue and Fascia, Open Approach (ICD-10-PCS; principal; 2017-07-25)
PROC: 30233N1 Transfusion of Nonautologous Red Blood Cells into Peripheral Vein, Percutaneous Approach (ICD-10-PCS; 2017-07-25)
PROC: 02HV33Z Insertion of Infusion Device into Superior Vena Cava, Percutaneous Approach (ICD-10-PCS; 2017-07-25)
PROC: 02HV33Z Insertion of Infusion Device into Superior Vena Cava, Percutaneous Approach (ICD-10-PCS; 2017-07-30)
PROC: B548ZZA Ultrasonography of Superior Vena Cava, Guidance (ICD-10-PCS; 2017-07-30)
DX: T81.4XXA Infection following a procedure, initial encounter (principal); A41.9 Sepsis, unspecified organism; L89.312 Pressure ulcer of right buttock, stage 2; E11.22 Type 2 diabetes mellitus with diabetic chronic kidney disease; I13.0 Hypertensive heart and chronic kidney disease with heart failure and stage 1 through stage 4 chronic kidney disease, or unspecified chronic kidney disease; I50.32 Chronic diastolic (congestive) heart failure; L89.893 Pressure ulcer of other site, stage 3; Z68.43 Body mass index [BMI] 50.0-59.9, adult; T81.31XA Disruption of external operation (surgical) wound, not elsewhere classified, initial encounter; L97.829 Non-pressure chronic ulcer of other part of left lower leg with unspecified severity; L97.819 Non-pressure chronic ulcer of other part of right lower leg with unspecified severity; N18.3 Chronic kidney disease, stage 3 (moderate); E66.01 Morbid (severe) obesity due to excess calories; I25.10 Atherosclerotic heart disease of native coronary artery without angina pectoris; E78.5 Hyperlipidemia, unspecified; Z95.1 Presence of aortocoronary bypass graft; Z91.048 Other nonmedicinal substance allergy status; Z79.84 Long term (current) use of oral hypoglycemic drugs; Z79.82 Long term (current) use of aspirin; Z79.4 Long term (current) use of insulin; E87.5 Hyperkalemia; D63.1 Anemia in chronic kidney disease; I25.5 Ischemic cardiomyopathy; B95.61 Methicillin susceptible Staphylococcus aureus infection as the cause of diseases classified elsewhere; B95.4 Other streptococcus as the cause of diseases classified elsewhere; I25.2 Old myocardial infarction; I83.028 Varicose veins of left lower extremity with ulcer other part of lower leg
CPT/HCPCS: 36415; 36416; 36430; 36569; 71045; 71046; 80048; 80053; 80202; 81001; 83880; 85025; 85610; 86140; 86850; 86900; 86901; 87070; 87076; 87077; 87186; 87205; 93005; 93010; 93306; A4216; C1751; G8978-GP-CJ; G8979-GP-CJ; G8980-GP-CJ; G8987-GO-CI; G8988-GO-CI; G8989-GO-CI; J0690; J0696; J1644; J1650; J1815; J2001; J2270; J2543; J2700; J2704; J3010; J3370; J7050; P9016

== ENCOUNTER 2017-08-08 14:34 | Emergency (ER) | payer OTHER ==
[2017-08-08] MEDS ORDERED: HYDROcodone/Acetaminophen 5/325 mg Tablet ONE (15:57)
== END 2017-08-08 17:36 | disposition home or self-care (01) ==
LOC: ERS 14:34
DX: Z48.01 Encounter for change or removal of surgical wound dressing (principal); E11.9 Type 2 diabetes mellitus without complications; I25.2 Old myocardial infarction; E78.5 Hyperlipidemia, unspecified; I10 Essential (primary) hypertension; Z79.899 Other long term (current) drug therapy
CPT/HCPCS: 99283

== ENCOUNTER 2018-03-09 05:36 | Day surgery (SDC) | payer OTHER ==
[2018-03-06 16:29] VITALS: BMI 47.4
[2018-03-09 06:22] LABS: #Basophils 0.1 thou/uL (0.0-0.2); #Eosinphils 0.2 thou/uL (0.0-0.7); #Lymphocytes 2.2 thou/uL (1.20-3.40); #Monocytes 0.6 thou/uL (0.11-0.59); #Neutrophils 5.4 thou/uL (1.40-6.50); %Basophils 0.6 % (0.0-1.0); %Eosinophils 2.6 % (0.0-10.0); %Lymphocytes 26.2 % (21.0-51.0); %Monocytes 6.8 % (0.0-10.0); %Neutrophils 63.9 % (42.0-75.0); Hemoglobin 9.7 g/dL (12.0-16.0); Mean Corpuscular HGB CONC 31.5 g/dL (32.0-36.0); Mean Corpuscular Hemoglobin 29.2 pg (27.0-31.0); Mean Corpuscular Volume 92.7 fL (78.0-98.0); Platelet Count 211 thou/uL (130-400); RBC Distribution Width 13.1 % (11.5-14.5); Red Blood Cell (RBC) Count 3.31 mill/uL (4.20-5.40); White Blood Cell (WBC) Count 8.5 thou/uL (4.8-10.8)
[2018-03-09 06:37] LABS: Anion Gap 13 mmol/L (10-20); BUN (Urea Nitrogen) 80 mg/dL (9.8-20.1); Calc. Creatinine Clearance 62 mL/min (70-130); Calcium 9.4 mg/dL (7.8-10.44); Carbon Dioxide 22 mmol/L (23-31); Chloride 112 mmol/L (98-107); Estimated GFR-MDRD 26; Potassium 4.5 mmol/L (3.5-5.1); Sodium 142 mmol/L (136-145)
[2018-03-09 06:45] LABS: Glucose 53 mg/dL (80-115)
[2018-03-09] MEDS ORDERED: Fentanyl 100 MCG/2 ML VIAL ONE (06:48)
[2018-03-09] MEDS ORDERED: Dextrose 50% Abboject 50 ML SYRINGE ONE (06:50)
[2018-03-09] MEDS ORDERED: CEFAZOLIN/Water 2 GM/20 ML SYRINGE ONE (07:18)
--- NOTE | 2018-03-09 08:48 | OP ---
DATE OF PROCEDURE: 03/09/2018 PROCEDURE PERFORMED: Sternal wound debridement. PREOPERATIVE DIAGNOSIS: Eroding sternal wires, status post coronary artery bypass grafting. POSTOPERATIVE DIAGNOSES: Eroding osteophyte and dystrophic calcification, status post coronary arter y bypass grafting. SURGEON: Dr. Javi Matute. ANESTHESIA: General LMA. INDICATIONS: The patient is a morbidly obese 62-year-old woman who had extensive albeit superficial infection involving her sternal wound following coronary artery bypass grafting and had a protracted course with the use of a wound VAC. She has had apparent healing of her wound, but then developed ch ronic drainage from the superior apex of her incision that would clear up and then recur and palpably , there was a hard mass associated with the wound consistent with eroding sternal wire. She is now t aken to the operating room for removal of that presumed wire. FINDINGS: No exposed wire. There was prominent dystrophic calcification and essentially an osteophy te on the manubrium of the sternum. NARRATIVE REPORT: After informed consent was obtained, patient was taken to the operating room and p laced in supine position on the operating table. General anesthesia was induced and her airway was c ontrolled with an LMA device. Her chest was prepped and draped in sterile fashion. An incision was made sharply over the superior apex of the incision, where the palpable mass and freshly healed wound more upon continuing the incision through the subcutaneous tissue. Prominent calcification forming sharp point were encountered, but upon the debriding them with a curet, no wire was exposed. Dystrop hic calcification appeared to continue on it into the sternal notch, this was also debrided with a cu ret. Calcific debris was sent for culture, but there was no tissue recovered suggestive of active in fection. After debriding the dystrophic calcification in the anterior surface of the manubrium with a curet and finding no wire to remove. The wound was copiously irrigated. The soft tissue was under mined and the retracted scar of the skin edges was excised to allow for primary closure. Two layers of subcutaneous Vicryl and interrupted nylon skin sutures were used to close the wound. The wound wa s dressed. She was awakened and extubated in the operating room and taken to the recovery area in st able condition.
[2018-03-09] MEDS ORDERED: HYDROcodone/Acetaminophen 5/325 mg Tablet ONE (09:43)
[2018-03-09] MEDS ORDERED: Lidocaine 1% PF 5 ML VIAL ONE (14:25)
[2018-03-09] MEDS ORDERED: PHENYLEPHRINE-NS 100 MCG/ML 10 ML SYRINGE ONE (14:25)
[2018-03-09] MEDS ORDERED: Ondansetron PF 4 MG/2 ML Vial ONE (14:25)
[2018-03-09] MEDS ORDERED: PROPOFOL 200 MG/20 ML VIAL ONE (14:25)
[2018-03-09] MEDS ORDERED: ePHEDrine/0.9% NaCl/PF SYRINGE 50 mg/10 ml ONE (14:25)
--- NOTE | 2018-03-12 11:40 | PQF ---
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 Check the appropriate box and include in your discharge summary. [ ] [ ] [ ] [x ] Please check this box if this does not apply to this patient [ ] Unable to determine [ ] Other diagnosis: Review the following information and exercise your independent professional judgment in responding to the clarification. Based upon the clinical findings, risk factors, and treatment, please clarify if you are treating one of the above probable or suspected diagnoses. Physician Signature: Date Time MTDD
== END 2018-03-09 10:30 | disposition home or self-care (01) ==
LOC: SDC 05:36
PROVIDERS: ATTEND Thoracic Surgery (Cardiothoracic Vascular Surgery)
PROC: 0PB00ZZ Excision of Sternum, Open Approach (ICD-10-PCS; principal; 2018-03-09)
DX: T81.42XA Infection following a procedure, deep incisional surgical site, initial encounter (principal); M25.70 Osteophyte, unspecified joint; M89.8X8 Other specified disorders of bone, other site; I25.10 Atherosclerotic heart disease of native coronary artery without angina pectoris; E11.9 Type 2 diabetes mellitus without complications; I10 Essential (primary) hypertension; E66.01 Morbid (severe) obesity due to excess calories; Z68.42 Body mass index [BMI] 45.0-49.9, adult; Z79.4 Long term (current) use of insulin; Z79.82 Long term (current) use of aspirin; Z79.899 Other long term (current) drug therapy; Z91.048 Other nonmedicinal substance allergy status; Z95.1 Presence of aortocoronary bypass graft
CPT/HCPCS: 36415; 36416; 80048; 85025; 87070; 87205; J2001; J2405; J2704; J3010

== ENCOUNTER 2019-07-06 21:10 | Inpatient (IN) | payer OTHER ==
[2019-07-06] MEDS ORDERED: DOPamine 400 MG/D5W 250 ML 250 ML ONE (21:16)
--- NOTE | 2019-07-06 21:51 | RAD ---
PORTABLE CHEST ONE VIEW: 07/06/19 at 9:13 p.m. HISTORY: Central line placement. FINDINGS/IMPRESSION: The heart is enlarged. There are changes of median sternotomy. There is a right subclavian central li ne with tip in the projection of the cavoatrial junction. No pneumothoraces are seen. The right costo phrenic angle is excluded from the film. There is no evidence of shea pleural edema or left pleural effusion. POS: OFF
[2019-07-06 21:56] LABS: INR-International Normal Ratio 1.4; PTT 30.8 SEC (22.9-36.1)
[2019-07-06 22:10] LABS: #Lymphocytes 1.6 thou/uL (1.20-3.40); #Monocytes 0.9 thou/uL (0.11-0.59); #Neutrophils 7.3 thou/uL (1.40-6.50); %Basophils 0.4 % (0.0-1.0); %Eosinophils 0.2 % (0.0-10.0); %Lymphocytes 16.5 % (21.0-51.0); %Monocytes 9.2 % (0.0-10.0); %Neutrophils 73.7 % (42.0-75.0); Hemoglobin 10.1 g/dL (12.0-16.0); MDiff Complete? YES; Mean Corpuscular Hemoglobin 30.7 pg (27.0-31.0); Mean Platelet Volume 10.5 fL (7.4-10.4); Platelet Count 91 thou/uL (130-400); Platelet Morphology Comment Appears Decreased; Polychromasia SLIGHT = 2-3 cells (100X) (0-2/hpf); RBC Distribution Width 14.4 % (11.5-14.5); Red Blood Cell (RBC) Count 3.28 mill/uL (4.20-5.40); White Blood Cell (WBC) Count 9.9 thou/uL (4.8-10.8)
[2019-07-06 22:12] LABS: ALT (SGPT) 19 U/L (8-55); AST (SGOT) 18 U/L (5-34); Albumin 3.6 g/dL (3.4-4.8); Alkaline Phosphatase 155 U/L (40-110); Anion Gap 15 mmol/L (10-20); BUN (Urea Nitrogen) 102 mg/dL (9.8-20.1); Bilirubin, Total 0.4 mg/dL (0.2-1.2); CK (CPK) 52 U/L (29-168); Calc. Creatinine Clearance 0 mL/min (70-130); Calcium 8.4 mg/dL (7.8-10.44); Carbon Dioxide 14 mmol/L (23-31); Chloride 113 mmol/L (98-107); Estimated GFR-MDRD 18; Globulin 3.1 g/dL (2.4-3.5); Glucose 161 mg/dL (80-115); Lipase 18 U/L (8-78); Potassium 5.2 mmol/L (3.5-5.1); Protein, Total 6.7 g/dL (6.0-8.3); Sodium 137 mmol/L (136-145)
[2019-07-06] MEDS ORDERED: Aspirin Chewable 81 MG TAB ONE (22:29)
[2019-07-06 22:33] LABS: CKMB 1.1 ng/mL (0-6.6)
[2019-07-06] MEDS ORDERED: Sodium Bicarb 50 MEQ/50 ML VIAL ONE (22:53)
[2019-07-07] MEDS ORDERED: Ondansetron ODT 4 MG TAB SL PRN (00:39)
[2019-07-07] MEDS ORDERED: Ondansetron PF 4 MG/2 ML Vial IVP PRN (00:39)
[2019-07-07] MEDS ORDERED: DOPamine 400 MG/D5W 250 ML 250 ML IVPB SCH (00:45)
[2019-07-07 01:10] VITALS: BMI 52.7
[2019-07-07 01:36] LABS: Troponin I 0.046 ng/mL (< 0.028)
[2019-07-07] MEDS ORDERED: Acetaminophen 325 MG TAB PO PRN (01:50)
--- NOTE | 2019-07-07 01:59 | PDOC.HHP ---
Hospitalist HPI - History of Present Illness Weakness; SOB History of Present Illness: 63 yo female with CAD, CHF, HTN, DM-2 presented to ED due to weakness and SOB on minimal exertion since Friday. She denies orthopnea or PND. She reports dyspnea with minimal exertion and feeling tired and fatigued. No CP, palpitations, feeling dizzy, fever, chills. She reports nausea and vomiting. No diarrhea, abdominal pain, constipation, headache, burning or pain with urination. In ED, she was found to have 3rd degree heart block. She was transferred to ED at [facility] and had central line placed and started on dopamine drip. Cardiology has been consulted and pacemaker placement planned for tomorrow. No travel history or sick contacts. She reports chronic leg swelling and states she is usually ambulatory by herself. Lives with her . Hospitalist ROS - Review of Systems All other systems reviewed; all pertinent +/- noted in HPI/Subj Hospitalist History - Past Medical History Cardiac: reports: CAD, CHF, HTN, MS Heme/Onc: reports: Anemia NOS Renal/: reports: Chronic renal insuff Endocrine: reports: Diabetes - Past Surgical History Past Surgical History: reports: CABG, (x 2) - Family History Family History: reports: no pertinent history (reviewed) - Social History Smoking Status: Former smoker (during teen years) Tobacco Type: cigarettes Alcohol: reports: None Drugs: reports: none Living Situation: With Family Domestic Violence: Negative Activity level: independent ambulation - Exam General Appearance: awake alert, ill appearing Eye: PERRL, anicteric sclera ENT: normocephalic atraumatic, no oropharyngeal lesions, moist mucosa Neck: supple, symmetric, no JVD, no thyromegaly, no lymphadenopathy, no carotid bruit Heart: no murmur, no gallops, no rubs, normal peripheral pulses Heart - other findings: bradycardia Respiratory: CTAB, no wheezes, no rales, no ronchi, normal chest expansion, no tachypnea Respiratory - other findings: not using accessory muscles; midline CABG scar Gastrointestinal: soft, non-tender, non-distended, normal bowel sounds, no palpable masses, no hepatomegaly, no splenomegaly Extremities: no cyanosis, no clubbing, 2+ LE edema (bilateral) Skin: normal turgor, no lesions, no rashes Neurological: cranial nerve grossly intact, normal sensation to touch, no weakness, no focal deficits Musculoskeletal: normal tone, normal strength, no muscle wasting Psychiatric: normal behavior, A&O x 3 Psychiatric - other findings: anxious Hospitalist Results - Labs Result Diagrams: 07/06/19 21:41 07/06/19 21:41 Lab results: WBC 9.9 thou/uL (4.8-10.8) 07/06/19 21:41 Hgb 10.1 g/dL (12.0-16.0) L 07/06/19 21:41 Hct 30.5 % (36.0-47.0) L 07/06/19 21:41 MCV 93.0 fL (78.0-98.0) 07/06/19 21:41 Plt Count 91 thou/uL (130-400) L 07/06/19 21:41 Neutrophils % 73.7 % (42.0-75.0) 07/06/19 21:41 Sodium 137 mmol/L (136-145) 07/06/19 21:41 Potassium 5.2 mmol/L (3.5-5.1) H 07/06/19 21:41 Chloride 113 mmol/L (98-107) H 07/06/19 21:41 Carbon Dioxide 14 mmol/L (23-31) L 07/06/19 21:41 BUN 102 mg/dL (9.8-20.1) H 07/06/19 21:41 Creatinine 2.65 mg/dL (0.6-1.1) H 07/06/19 21:41 Glucose 161 mg/dL (80-115) H 07/06/19 21:41 Calcium 8.4 mg/dL (7.8-10.44) 07/06/19 21:41 Total Bilirubin 0.4 mg/dL (0.2-1.2) 07/06/19 21:41 AST 18 U/L (5-34) 07/06/19 21:41 ALT 19 U/L (8-55) 07/06/19 21:41 Alkaline Phosphatase 155 U/L (40-110) H 07/06/19 21:41 Creatine Kinase 52 U/L (29-168) 07/06/19 21:41 CK-MB (CK-2) 1.1 ng/mL (0-6.6) 07/06/19 21:41 Troponin I 0.046 ng/mL (< 0.028) H 07/07/19 00:53 B-Natriuretic Peptide 1043.5 pg/mL (0-100) H 07/06/19 21:41 Serum Total Protein 6.7 g/dL (6.0-8.3) 07/06/19 21:41 Albumin 3.6 g/dL (3.4-4.8) 07/06/19 21:41 Lipase 18 U/L (8-78) 07/06/19 21:41 - EKG Interpretation EKG: Personally reviewed - 3rd degree heart block with junctional rhythm - Radiology Interpretation Chest x-ray Status: image reviewed by me (no consolidation or CP angle blunting; midline CABG wires) Hospitalist H&P A/P - Problem (1) Heart block Code(s): I45.9 - CONDUCTION DISORDER, UNSPECIFIED Status: Acute Assessment and Plan: Admit to ICU to inpatient status. High risk due to risk of lethal arrhythmias Expected to stay in hospital for at least 2 midnights Continue dopamine drip Cardiology consulted. Pacemaker placement in AM Avoid AV ryanne blocking agents Cycle cardiac enzymes (2) Acute kidney injury superimposed on CKD Code(s): N17.9 - ACUTE KIDNEY FAILURE, UNSPECIFIED; N18.9 - CHRONIC KIDNEY DISEASE, UNSPECIFIED Status: Acute Assessment and Plan: Likely related to heart block Avoid nephrotoxic meds and hypotension US renal Never saw nehprology. Will consult renal Urinalysis, PTH & Phosphorous levels IV fluids Complicated by NAGMA Will give IV bicarb drip Once acidosis corrects, will likely need to be on PO bicarb tablets (3) CHF (congestive heart failure) Code(s): I50.9 - HEART FAILURE, UNSPECIFIED Status: Chronic Qualifiers: Heart failure type: diastolic Heart failure chronicity: chronic Qualified Code(s): I50.32 - Chronic diastolic (congestive) heart failure Assessment and Plan: Has bilateral pedal edema Check venous dopplers bilaterally Cardiology consulted Hold diuretics for now due to risk of shock due to heart block (4) DM (diabetes mellitus) Code(s): E11.9 - TYPE 2 DIABETES MELLITUS WITHOUT COMPLICATIONS Status: Chronic Qualifiers: Diabetes mellitus type: type 2 Diabetes mellitus complication status: with kidney complications Diabetes mellitus complication detail: with chronic kidney disease Chronic kidney disease stage: stage 3 (moderate) Assessment and Plan: NPO for now SSI Once on diet, will resume home meds Complicated by CKD-3 Nephrology consult Check HA1C (5) CAD (coronary artery disease) Code(s): I25.10 - ATHSCL HEART DISEASE OF [place] CORONARY ARTERY W/O ANG PCTRS Status: Chronic Qualifiers: Coronary Disease-Associated Artery/Lesion type: [place] artery [place] vs. transplanted heart: [place] heart Associated angina: without angina Qualified Code(s): I25.10 - Atherosclerotic heart disease of [place] coronary artery without angina pectoris Assessment and Plan: Elevated troponins likely related to renal function SOB on exertion likely related to her heart block Cardiology consulted Cycle cardiac enzymes. Flat line so far s/p CABG 2 yrs ago (6) Dyslipidemia Code(s): E78.5 - HYPERLIPIDEMIA, UNSPECIFIED Status: Chronic Assessment and Plan: STatin therapy (7) Hypertension Code(s): I10 - ESSENTIAL (PRIMARY) HYPERTENSION Status: Chronic Qualifiers: Hypertension type: essential hypertension Qualified Code(s): I10 - Essential (primary) hypertension Assessment and Plan: BP elevated likely related to heart block and bradycardia Anticipate normalization of BP with pacemaker placement Monitor BP for now Resume meds after pacemaker placement (8) Morbid obesity Code(s): E66.01 - MORBID (SEVERE) OBESITY DUE TO EXCESS CALORIES Status: Chronic - Plan Plan: Code status - FULL CODE is health care proxy
[2019-07-07] MEDS ORDERED: Dextrose 50% Abboject 50 ML SYRINGE SLOW IVP PRN ×2 (02:22→10:28)
[2019-07-07] MEDS ORDERED: Dextrose 5% in Water 1,000 ML IV PRN ×2 (02:22→10:28)
[2019-07-07] MEDS ORDERED: HumaLOG 300 UNITS/3 ML VIAL SC PRN (02:22)
[2019-07-07] MEDS ORDERED: Sodium Bicarbonate 150 MEQ in Dextrose 5% in Water 1,000 ML IV SCH (02:30)
[2019-07-07 04:33] LABS: #Lymphocytes 1.1 thou/uL (1.20-3.40); #Monocytes 0.8 thou/uL (0.11-0.59); #Neutrophils 7.1 thou/uL (1.40-6.50); %Basophils 0.3 % (0.0-1.0); %Eosinophils 0.2 % (0.0-10.0); %Lymphocytes 12.2 % (21.0-51.0); %Monocytes 9.2 % (0.0-10.0); %Neutrophils 78.1 % (42.0-75.0); Hemoglobin 9.8 g/dL (12.0-16.0); Mean Corpuscular HGB CONC 33.5 g/dL (32.0-36.0); Mean Corpuscular Hemoglobin 31.1 pg (27.0-31.0); Mean Corpuscular Volume 92.9 fL (78.0-98.0); Mean Platelet Volume 10.2 fL (7.4-10.4); Platelet Count 100 thou/uL (130-400); RBC Distribution Width 14.2 % (11.5-14.5); Red Blood Cell (RBC) Count 3.15 mill/uL (4.20-5.40); White Blood Cell (WBC) Count 9.1 thou/uL (4.8-10.8)
[2019-07-07 04:53] LABS: ALT (SGPT) 21 U/L (8-55); AST (SGOT) 17 U/L (5-34); Albumin 3.4 g/dL (3.4-4.8); Alkaline Phosphatase 152 U/L (40-110); Anion Gap 16 mmol/L (10-20); BUN (Urea Nitrogen) 99 mg/dL (9.8-20.1); Bilirubin, Total 0.6 mg/dL (0.2-1.2); Calc. Creatinine Clearance 51 mL/min (70-130); Calcium 8.8 mg/dL (7.8-10.44); Carbon Dioxide 16 mmol/L (23-31); Chloride 112 mmol/L (98-107); Estimated GFR-MDRD 19; Globulin 3.6 g/dL (2.4-3.5); Glucose 218 mg/dL (80-115); Potassium 4.8 mmol/L (3.5-5.1); Sodium 139 mmol/L (136-145)
[2019-07-07 04:57] LABS: Troponin I 0.065 ng/mL (< 0.028)
[2019-07-07 04:59] LABS: Hemoglobin A1c 6.7 % (4.0-6.0)
[2019-07-07 05:50] LABS: Bacteria/HPF 4+ HPF (None Seen); Bilirubin Negative (Negative); Blood, Urine Negative (Negative); Clarity Turbid (Clear); Glucose, Urine (Dipstick) Normal (Negative); Leukocyte 250 Leu/uL (Negative); Nitrite Negative (Negative); Protein, Urine (Dipstick) 30 mg/dL (Neg-Trace); RBC/HPF 0-3 HPF (0-3); Squamous Epithelial 0-3 HPF (0-3); Urobilinogen Normal mg/dL (Less than 2); WBC/HPF 21-50 HPF (0-3)
[2019-07-07 05:52] LABS: Urine Culture Reflex Yes Yes
[2019-07-07] MEDS ORDERED: Gentamicin 80 MG/2 ML VIAL ONE (06:59)
[2019-07-07] MEDS ORDERED: CEFAZOLIN 1 GM VIAL ONE (06:59)
[2019-07-07] MEDS ORDERED: Aspirin 325 MG TAB PO SCH (08:00)
[2019-07-07] MEDS ORDERED: Ondansetron PF 4 MG/2 ML Vial ONE (08:05)
[2019-07-07] MEDS ORDERED: Midazolam HCl 2 mg/2 ml Vial ONE (08:05)
[2019-07-07] MEDS ORDERED: Lidocaine 1% (PF) 30 ML VIAL ONE (08:08)
--- NOTE | 2019-07-07 08:21 | ULT ---
BILATERAL LOWER EXTREMITY VENOUS DUPLEX ULTRASOUND INCLUDING COLOR AND SPECTRAL DOPPLER IMAGING: HISTORY: Bilateral lower extremity pain and edema, nonhealing wound left lower extremity. FINDINGS: Exam performed involving the groin to ankle regions. Visualized greater saphenous, common femoral, s uperficial femoral, profunda femoral, popliteal, trifurcation, and posterior tibial veins are unremar kable. On the left side, the popliteal and lower leg region was not scanned because of extensive ban dage material. Phasic flow noted at all levels. Normal compressibility and normal augmentation. IMPRESSION: No evidence for deep venous thrombosis involving the visualized lower extremities. The left inferior lower extremity could not be evaluated because of extensive bandage material. POS: [facility]
--- NOTE | 2019-07-07 08:28 | ULT ---
BILATERAL RENAL ULTRASOUND COMPLETE: HISTORY: Acute kidney insufficiency versus chronic kidney disease. Right flank pain. FINDINGS: The right kidney measures 10.1 x 4.4 x 3.5 cm. The left kidney measures 11.3 x 5.2 x 5.8 cm. There is no renal hydronephrosis. The urinary bladder is nearly empty. No perinephric process. IMPRESSION: Unremarkable bilateral renal ultrasound. No hydronephrosis. Nearly empty bladder. POS: [facility]
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
[2019-07-07] MEDS ORDERED: Lisinopril 2.5 MG TAB PO SCH (10:30)
[2019-07-07] MEDS ORDERED: cloNIDine 0.1 MG TAB PO SCH (10:30)
[2019-07-07] MEDS: HumaLOG 300 UNITS/3 ML VIAL SC PRN ×2 (13:35→16:25)
--- NOTE | 2019-07-07 15:03 | RAD ---
Portable frontal chest radiograph: 07/07/2019 COMPARISON: 07/06/2019 HISTORY: Evaluate chest following cardiac device placement FINDINGS: New dual lead transvenous device has been inserted via a left-sided approach. Leads overlie region of right atrium and right ventricle. No pneumothorax, pleural fluid, focal consolidation, or alveolar edema. Midline sternotomy wires and mediastinal clips are noted. Stable right vascular catheter with distal tip overlying the cavoatrial junction region. IMPRESSION: Interval placement of dual lead transvenous pacing device. No evidence for pneumothorax.
--- NOTE | 2019-07-07 16:29 | PRG ---
DATE OF SERVICE: 07/07/2019 TIME: 1600 hours. SUBJECTIVE: Ms. Gomes is resting comfortably. She underwent dual-chamber pacemaker placement this morning without complications. Postoperatively, she has done well. Her rhythms remained stable. Blood pressure stable. She has put out 2 L of urine. She has been seen by Nephrology and is currently on IV bicarb. She has no complaints at this time and overall says she feels much better. PHYSICAL EXAMINATION: GENERAL: This is a pleasant female, in no acute distress. VITAL SIGNS: Stable. HEENT: Head is atraumatic and normocephalic. Mucous membranes are moist. NECK: Supple. No JVD is noted. CHEST: Clear bilaterally. CARDIOVASCULAR: Regular rate and rhythm with normal S1 and S2. ABDOMEN: Soft, nontender to palpation, and nondistended. EXTREMITIES: Show bilateral chronic lower extremity edema. Left lower extremity is wrapped and has been addressed by Wound Care due to chronic infection. Telemetry, the patient is currently AV pacing. IMPRESSION: 1. Complete heart block, status post dual-chamber pacemaker placement. 2. Coronary artery disease, status post previous coronary artery bypass grafting. 3. History of chronic left lower extremity infection. 4. Diabetes mellitus, type 2. 5. Acute renal insufficiency. At this time, the patient is much improved. We will on plan on transferring her to telemetry. Repeat labs are sent from the morning to monitor renal function. I have no further recommendations currently. Job ID: [id number]
--- NOTE | 2019-07-07 18:15 | CON ---
DATE OF CONSULTATION: CONSULTING PHYSICIAN: Luz Marina Bates MD REQUESTING PHYSICIAN: Hospitalists. REASON FOR CONSULTATION: Acute kidney injury. IMPRESSION: 1. Acute kidney injury this is likely cardiorenal in the context of fall, renal depletion as a result of heart block. 2. Metabolic acidosis in the context of reduced GFR. PLAN: 1. I will support bicarb supplementation. 2. We will monitor the potassium closely as the metabolic acidosis resolves. 3. Hemodynamic improvement. Hopefully, the placement of pacemaker will improve the hemodynamics of this patient with that improve the renal perfusion and outcome. 4. Renally dose all medications and avoid potentially nephrotoxic agents. HISTORY OF PRESENT ILLNESS: History is that of 63-year-old female patient, who presented here with weakness, shortness of breath on exertion and got diagnosed with third degree heart block. The patient noted with elevated creatinine above 2 and reduce urinary output. The patient to undergo pacemaker placement today, hopefully will improve the cardiac condition. As a result of the elevated creatinine, decision was taken to involve Renal in the management of this case. PAST MEDICAL HISTORY: Significant for coronary artery disease status post bypass surgery, hypertension, congestive heart failure, anemia, and chronic kidney disease. FAMILY HISTORY: No family history of kidney disease. SOCIAL HISTORY: Smoking history. No illicit drug use. REVIEW OF SYSTEMS: As documented in the body of the history. All other systems were reviewed and found not to be significantly related to presenting illness. ALLERGIES: NO KNOWN DRUG ALLERGY. PHYSICAL EXAMINATION: GENERAL: The patient was found not to be in any obvious distress, noted with the following vital signs. VITAL SIGNS: Afebrile, blood pressure of 139/52, pulse of 80, and respiratory rate of 22. HEENT: Unremarkable. CARDIOVASCULAR SYSTEM: First and second heart sounds were heard. RESPIRATORY SYSTEM: Clear to auscultation. DIGESTIVE SYSTEM: Revealed a benign abdomen. Positive bowel sounds. EXTREMITIES: Showed chronic lymphedema. SUMMARY: A 63-year-old female patient, who presented here with acute kidney injury in the context of heart block. Thank you for this consultation. We will follow with you. Job ID: [id number]
[2019-07-07] MEDS ORDERED: Latanoprost 0.005% Ophth Soln 2.5 ml Bottle EA EYE SCH (21:00)
[2019-07-07] MEDS ORDERED: Insulin Glargine 40 UNITS in Pre-Filled Syringe 1 EACH SC SCH (21:00)
[2019-07-07] MEDS: cloNIDine 0.1 MG TAB PO SCH (21:21)
[2019-07-07] MEDS: Metoprolol Tartrate 25 MG TAB PO SCH (21:21)
[2019-07-08] MEDS: DorzolamidE/Timolol 2%/0.5% Ophth Soln 10 ml Bottle R EYE SCH ×3 (00:06→16:32)
[2019-07-08] MEDS: Brimonidine Tartrate 0.2% Ophth Soln 5 ml Bottle R EYE SCH ×3 (00:07→16:32)
[2019-07-08 05:13] LABS: Anion Gap 11 mmol/L (10-20); BUN (Urea Nitrogen) 65 mg/dL (9.8-20.1); Calc. Creatinine Clearance 73 mL/min (70-130); Calcium 8.1 mg/dL (7.8-10.44); Carbon Dioxide 22 mmol/L (23-31); Chloride 113 mmol/L (98-107); Estimated GFR-MDRD 29; Glucose 101 mg/dL (80-115); Potassium 4.4 mmol/L (3.5-5.1); Sodium 142 mmol/L (136-145)
--- NOTE | 2019-07-08 08:39 | PRG ---
DATE OF SERVICE: 07/08/2019 SUBJECTIVE: Ms. Gomes is doing much better. She feels better. Her breathing has improved. She is status post pacemaker placement. Ms. Gomes since her bypass has been lost to followup. She states she has a lower extremity wound noted over the last 3 years. This is likely venous. She is currently on antibiotic therapy. OBJECTIVE: VITAL SIGNS: Blood pressure 135/61, pulse 80, temperature 99. LUNGS: Clear to auscultation. HEART: Regular rate and rhythm. ABDOMEN: Soft, nontender, nondistended. EXTREMITIES: No edema. PERTINENT LABORATORY DATA: Hemoglobin 9.8. Creatinine 1.75 down from 2.2. IMPRESSION: 1. Third-degree atrioventricular block. 2. Coronary artery disease. 3. Status post bypass surgery. 4. Venous ulceration. RECOMMENDATIONS: 1. Continue p.o. antibiotic therapy as an outpatient. 2. Nephrology consulted for worsening renal function, likely related to compromised cardiac output from third-degree AV block, now improving. 3. Continue lisinopril in addition to metoprolol. 4. Echo with Doppler today. Job ID: [id number]
[2019-07-08] MEDS ORDERED: Lisinopril 2.5 MG TAB PO SCH (09:00)
[2019-07-08] MEDS: cloNIDine 0.1 MG TAB PO SCH (09:15)
[2019-07-08] MEDS: Metoprolol Tartrate 25 MG TAB PO SCH (09:16)
--- NOTE | 2019-07-08 16:17 | PRG ---
DATE OF SERVICE: 07/08/2019 SUBJECTIVE: The patient is seen and examined, doing much better, noted with the following vital signs. OBJECTIVE: VITAL SIGNS: Afebrile, temperature 99.7, pulse 80, respiratory rate of 17, O2 saturations are 99% with blood pressure of 152/66. HEENT: Unremarkable. CARDIOVASCULAR: First and second heart sounds were heard. RESPIRATORY SYSTEM: Clear to auscultation. DIGESTIVE SYSTEM: Revealed a benign abdomen. Positive bowel sounds. EXTREMITIES: No peripheral edema. SKIN: No new gross rash. LYMPHATICS: No peripheral lymphadenopathy. LABORATORY INVESTIGATION: Significant for creatinine that has gone down to 1.7. IMPRESSION: Acute on chronic kidney disease in the context of cardiorenal syndrome, improving. PLAN: Continue current renal supportive measures. Job ID: [id number]
[2019-07-08 18:54] VITALS: BP 145/65; TEMP 98.4
--- NOTE | 2019-07-09 19:25 | CCL ---
DATE OF PROCEDURE: 07/07/19 INDICATION FOR PROCEDURE: This is a 63-year-old female status post bypass surgery, history of diabetes, hypertension, who prese nted with increasing shortness of breath over the last several days. Was found to have complete AV he art block with heart rates in the 20s and 30s. She remained relatively stable overnight on Dopamine a nd had an external pacemaker placed. She has done relatively well and was advised to undergo dual nisha mber pacemaker insertion. She was taken to the [facility] where she was prepped and draped in the sterile fashion and usi ng a left subclavian approach, a pacemaker was inserted without any difficulties or complications. Shreya doan was implanted with a dual chamber pacemaker from [employer], an [place] S dual chamber pacemaker which is MRI compatible. Two screw-in leads are placed, one in the atrium and one in the ventricle. There were no significant complications or difficulties encountered. She was given 1 mg of IV versed for co nscious sedation. Throughout the procedure was monitored by an independent observer present for blood pressure, heart rate and O2 saturation. Total sedation time was 57 minutes. The pacemaker was set wi th the upper rate of 130 and the lower rate at 80. Hopefully, we will decrease this rate in the next couple of days back down to 70, but at this time she does have some indication of congestive heart fa ilure symptoms associated with the severe bradycardia as well as renal insufficiency.
== END 2019-07-08 16:50 | disposition home or self-care (01) | DRG 243 ==
LOC: ERS 21:10 → CCU 22:56 → 2NO 07-07 17:44
PROVIDERS: ADMIT Internal Medicine Sleep Medicine; ATTEND Internal Medicine
PROC: 0JH606Z Insertion of Pacemaker, Dual Chamber into Chest Subcutaneous Tissue and Fascia, Open Approach (ICD-10-PCS; principal; 2019-07-07)
PROC: 02HL3JZ Insertion of Pacemaker Lead into Left Ventricle, Percutaneous Approach (ICD-10-PCS; 2019-07-07)
PROC: 02HK3JZ Insertion of Pacemaker Lead into Right Ventricle, Percutaneous Approach (ICD-10-PCS; 2019-07-07)
DX: I44.2 Atrioventricular block, complete (principal); N17.9 Acute kidney failure, unspecified; I50.32 Chronic diastolic (congestive) heart failure; I13.0 Hypertensive heart and chronic kidney disease with heart failure and stage 1 through stage 4 chronic kidney disease, or unspecified chronic kidney disease; Z68.43 Body mass index [BMI] 50.0-59.9, adult; E87.2 Acidosis; I25.10 Atherosclerotic heart disease of native coronary artery without angina pectoris; N18.9 Chronic kidney disease, unspecified; E11.22 Type 2 diabetes mellitus with diabetic chronic kidney disease; E78.5 Hyperlipidemia, unspecified; E66.01 Morbid (severe) obesity due to excess calories; I25.2 Old myocardial infarction; Z95.1 Presence of aortocoronary bypass graft
CPT/HCPCS: 33208; 36415; 36416; 36556; 71045; 76770; 80048; 80053; 81001; 82550; 82553; 83036; 83690; 83735; 83880; 83970; 84100; 84484; 85025; 85610; 85730; 87077; 87086; 87186; 93005; 93306; 93798; 93970; 94760; 96365; 96366; 96375; 99152; 99153; C1769; J0690; J1265; J1580; J1815; J2001; J2250; J2405; J7070

== ENCOUNTER 2021-07-21 13:32 | Inpatient (IN) | payer MEDICARE, OTHER ==
[2021-07-21] MEDS ORDERED: Ondansetron PF 4 MG/2 ML Vial IVP PRN (17:25)
[2021-07-21] MEDS ORDERED: Dextrose 5% in Water 1,000 ML IV PRN ×2 (17:25→21:22)
[2021-07-21] MEDS ORDERED: Dextrose 50% Abboject 50 ML SYRINGE SLOW IVP PRN ×2 (17:25→21:22)
[2021-07-21] MEDS ORDERED: Piperacillin/Tazobactam 3.375 GM in Sodium Chloride 0.9% 100 ML IVPB SCH ×3 (17:30→22:00)
[2021-07-21 17:54] LABS: #Eosinphils 0.1 thou/uL (0.0-0.7); #Lymphocytes 1.4 thou/uL (1.20-3.40); #Monocytes 0.8 thou/uL (0.11-0.59); #Neutrophils 9.6 thou/uL (1.40-6.50); %Basophils 0.1 % (0.0-1.0); %Eosinophils 0.9 % (0.0-10.0); %Lymphocytes 11.6 % (21.0-51.0); %Monocytes 6.5 % (0.0-10.0); %Neutrophils 80.9 % (42.0-75.0); Hemoglobin 9.8 g/dL (12.0-16.0); Mean Corpuscular Volume 96.8 fL (78.0-98.0); Mean Platelet Volume 7.1 fL (7.4-10.4); Platelet Count 287 thou/uL (130-400); RBC Distribution Width 14.5 % (11.5-14.5); Red Blood Cell (RBC) Count 3.28 mill/uL (4.20-5.40); White Blood Cell (WBC) Count 11.9 thou/uL (4.8-10.8)
[2021-07-21 18:14] LABS: ALT (SGPT) 12 U/L (8-55); AST (SGOT) 10 U/L (5-34); Albumin 2.5 g/dL (3.4-4.8); Alkaline Phosphatase 100 U/L (40-110); Anion Gap 13 mmol/L (10-20); BUN (Urea Nitrogen) 19 mg/dL (9.8-20.1); Bilirubin, Total 0.6 mg/dL (0.2-1.2); Calc. Creatinine Clearance 84 mL/min (70-130); Calcium 8.2 mg/dL (7.8-10.44); Carbon Dioxide 20 mmol/L (23-31); Chloride 108 mmol/L (98-107); Globulin 3.6 g/dL (2.4-3.5); Glucose 180 mg/dL (80-115); Potassium 4.7 mmol/L (3.5-5.1); Protein, Total 6.1 g/dL (5.8-8.1); Sodium 136 mmol/L (136-145)
[2021-07-21] MEDS: Morphine 4 MG/ML VIAL SLOW IVP PRN (18:20)
[2021-07-21] MEDS: Sodium Chloride 0.9% 1,000 ML IV SCH (18:20)
[2021-07-21 18:25] LABS: Troponin I Less than 0.010 ng/mL (< 0.028)
[2021-07-21 19:09] LABS: INR-International Normal Ratio 1.4; Prothrombin Time 17.6 sec (12.0-14.7)
[2021-07-21 19:11] LABS: PTT 30.9 sec (22.9-36.1)
[2021-07-21] MEDS: Latanoprost 0.005% Ophth Soln 2.5 ml Bottle R EYE SCH (20:55)
[2021-07-21] MEDS: cloNIDine 0.1 MG TAB PO SCH (20:55)
[2021-07-21] MEDS: DorzolamidE/Timolol 2%/0.5% Ophth Soln 10 ml Bottle R EYE SCH (20:56)
[2021-07-21] MEDS: Atorvastatin Calcium 20 MG TAB PO SCH (21:00)
[2021-07-21] MEDS: HumaLOG 300 UNITS/3 ML VIAL SC PRN (21:34)
[2021-07-22] MEDS: Piperacillin/Tazobactam 3.375 GM in Sodium Chloride 0.9% 100 ML IVPB SCH ×3 (01:09→18:18)
[2021-07-22 05:11] LABS: #Eosinphils 0.1 thou/uL (0.0-0.7); #Lymphocytes 1.5 thou/uL (1.20-3.40); #Monocytes 0.9 thou/uL (0.11-0.59); %Basophils 0.1 % (0.0-1.0); %Lymphocytes 14.4 % (21.0-51.0); %Monocytes 8.1 % (0.0-10.0); %Neutrophils 76.3 % (42.0-75.0); Hemoglobin 8.8 g/dL (12.0-16.0); Mean Corpuscular HGB CONC 31.4 g/dL (32.0-36.0); Mean Corpuscular Hemoglobin 30.5 pg (27.0-31.0); Mean Corpuscular Volume 97.3 fL (78.0-98.0); Mean Platelet Volume 7.3 fL (7.4-10.4); Platelet Count 255 thou/uL (130-400); RBC Distribution Width 14.4 % (11.5-14.5); White Blood Cell (WBC) Count 10.5 thou/uL (4.8-10.8)
[2021-07-22 05:39] LABS: ALT (SGPT) 10 U/L (8-55); AST (SGOT) 7 U/L (5-34); Albumin 2.2 g/dL (3.4-4.8); Alkaline Phosphatase 87 U/L (40-110); Anion Gap 10 mmol/L (10-20); BUN (Urea Nitrogen) 16 mg/dL (9.8-20.1); Bilirubin, Total 0.6 mg/dL (0.2-1.2); Calc. Creatinine Clearance 99 mL/min (70-130); Calcium 7.8 mg/dL (7.8-10.44); Carbon Dioxide 20 mmol/L (23-31); Chloride 110 mmol/L (98-107); Globulin 3.2 g/dL (2.4-3.5); Glucose 129 mg/dL (80-115); Potassium 4.5 mmol/L (3.5-5.1); Protein, Total 5.4 g/dL (5.8-8.1); Sodium 135 mmol/L (136-145)
[2021-07-22] MEDS: HYDROcodone/Acetaminophen 5/325 mg Tablet PO PRN (06:18)
[2021-07-22] MEDS ORDERED: Enoxaparin Sodium 30 MG/0.3 ML SYRINGE SC SCH (09:00)
[2021-07-22] MEDS: Morphine 4 MG/ML VIAL SLOW IVP PRN ×2 (09:05→14:47)
[2021-07-22] MEDS: Aspirin 81 mg Enteric Coated Tablet PO SCH (11:05)
[2021-07-22] MEDS: Enoxaparin Sodium 40 MG/0.4 ML SYRINGE SC SCH (11:06)
[2021-07-22] MEDS: cloNIDine 0.1 MG TAB PO SCH ×2 (11:08→20:25)
[2021-07-22] MEDS: DorzolamidE/Timolol 2%/0.5% Ophth Soln 10 ml Bottle R EYE SCH ×3 (11:10→20:24)
[2021-07-22] MEDS: Atorvastatin Calcium 20 MG TAB PO SCH (20:24)
[2021-07-22] MEDS: Latanoprost 0.005% Ophth Soln 2.5 ml Bottle R EYE SCH (20:24)
[2021-07-22] MEDS: HumaLOG 300 UNITS/3 ML VIAL SC PRN (20:26)
[2021-07-23] MEDS: Piperacillin/Tazobactam 3.375 GM in Sodium Chloride 0.9% 100 ML IVPB SCH ×4 (00:43→17:05)
[2021-07-23] MEDS: Sodium Chloride 0.9% 1,000 ML IV SCH ×3 (00:44→20:47)
[2021-07-23 04:59] LABS: #Eosinphils 0.1 thou/uL (0.0-0.7); #Lymphocytes 1.2 thou/uL (1.20-3.40); #Monocytes 0.8 thou/uL (0.11-0.59); #Neutrophils 5.5 thou/uL (1.40-6.50); %Basophils 0.3 % (0.0-1.0); %Eosinophils 1.6 % (0.0-10.0); %Lymphocytes 16.2 % (21.0-51.0); %Monocytes 10.6 % (0.0-10.0); %Neutrophils 71.4 % (42.0-75.0); Hemoglobin 8.5 g/dL (12.0-16.0); Mean Corpuscular HGB CONC 31.1 g/dL (32.0-36.0); Mean Corpuscular Hemoglobin 30.3 pg (27.0-31.0); Mean Corpuscular Volume 97.6 fL (78.0-98.0); Mean Platelet Volume 7.4 fL (7.4-10.4); Platelet Count 262 thou/uL (130-400); RBC Distribution Width 14.6 % (11.5-14.5); Red Blood Cell (RBC) Count 2.81 mill/uL (4.20-5.40); White Blood Cell (WBC) Count 7.7 thou/uL (4.8-10.8)
[2021-07-23 05:25] LABS: Anion Gap 11 mmol/L (10-20); BUN (Urea Nitrogen) 13 mg/dL (9.8-20.1); Calc. Creatinine Clearance 89 mL/min (70-130); Carbon Dioxide 20 mmol/L (23-31); Chloride 110 mmol/L (98-107); Potassium 4.6 mmol/L (3.5-5.1); Sodium 136 mmol/L (136-145)
[2021-07-23 05:26] LABS: ALT (SGPT) 8 U/L (8-55); AST (SGOT) 8 U/L (5-34); Albumin 2.2 g/dL (3.4-4.8); Alkaline Phosphatase 84 U/L (40-110); Bilirubin, Total 0.5 mg/dL (0.2-1.2); Calcium 7.8 mg/dL (7.8-10.44); Globulin 3.2 g/dL (2.4-3.5); Glucose 177 mg/dL (80-115); Protein, Total 5.4 g/dL (5.8-8.1)
[2021-07-23] MEDS: HumaLOG 300 UNITS/3 ML VIAL SC PRN ×3 (06:17→21:47)
[2021-07-23] MEDS: Ascorbic Acid 500 mg Chewable Tablet PO SCH (09:16)
[2021-07-23] MEDS: Multivitamin W/ Minerals 1 TAB PO SCH (09:16)
[2021-07-23] MEDS: Zinc Sulfate 220 MG CAP PO SCH (09:17)
[2021-07-23] MEDS: cloNIDine 0.1 MG TAB PO SCH ×2 (09:18→20:01)
[2021-07-23] MEDS: Aspirin 81 mg Enteric Coated Tablet PO SCH (09:18)
[2021-07-23] MEDS: Enoxaparin Sodium 40 MG/0.4 ML SYRINGE SC SCH (09:20)
[2021-07-23] MEDS: DorzolamidE/Timolol 2%/0.5% Ophth Soln 10 ml Bottle R EYE SCH ×3 (09:21→21:45)
[2021-07-23] MEDS: HYDROcodone/Acetaminophen 5/325 mg Tablet PO PRN ×2 (10:45→20:00)
[2021-07-23 16:12] VITALS: BMI 43.6
[2021-07-23] MEDS: Atorvastatin Calcium 20 MG TAB PO SCH (20:01)
[2021-07-23] MEDS: Latanoprost 0.005% Ophth Soln 2.5 ml Bottle R EYE SCH (21:45)
[2021-07-23] MEDS: Acetaminophen 325 MG TAB PO PRN (21:54)
[2021-07-24] MEDS: Piperacillin/Tazobactam 3.375 GM in Sodium Chloride 0.9% 100 ML IVPB SCH ×3 (01:34→17:18)
[2021-07-24 08:31] LABS: #Eosinphils 0.1 thou/uL (0.0-0.7); #Lymphocytes 0.9 thou/uL (1.20-3.40); #Monocytes 0.6 thou/uL (0.11-0.59); #Neutrophils 5.2 thou/uL (1.40-6.50); %Basophils 0.1 % (0.0-1.0); %Eosinophils 1.2 % (0.0-10.0); %Lymphocytes 13.3 % (21.0-51.0); %Monocytes 9.3 % (0.0-10.0); %Neutrophils 76.2 % (42.0-75.0); Hemoglobin 9.3 g/dL (12.0-16.0); Mean Corpuscular HGB CONC 30.9 g/dL (32.0-36.0); Mean Corpuscular Hemoglobin 30.1 pg (27.0-31.0); Mean Corpuscular Volume 97.3 fL (78.0-98.0); Mean Platelet Volume 7.3 fL (7.4-10.4); Platelet Count 260 thou/uL (130-400); RBC Distribution Width 14.4 % (11.5-14.5); White Blood Cell (WBC) Count 6.8 thou/uL (4.8-10.8)
[2021-07-24 08:54] LABS: Anion Gap 11 mmol/L (10-20); BUN (Urea Nitrogen) 11 mg/dL (9.8-20.1); Calc. Creatinine Clearance 95 mL/min (70-130); Carbon Dioxide 21 mmol/L (23-31); Chloride 110 mmol/L (98-107); Glucose 201 mg/dL (80-115); Potassium 4.8 mmol/L (3.5-5.1); Sodium 137 mmol/L (136-145)
[2021-07-24] MEDS: Enoxaparin Sodium 40 MG/0.4 ML SYRINGE SC SCH (08:54)
[2021-07-24] MEDS: Zinc Sulfate 220 MG CAP PO SCH (08:55)
[2021-07-24] MEDS: Ascorbic Acid 500 mg Chewable Tablet PO SCH (08:55)
[2021-07-24] MEDS: Aspirin 81 mg Enteric Coated Tablet PO SCH (08:55)
[2021-07-24] MEDS: Multivitamin W/ Minerals 1 TAB PO SCH (08:56)
[2021-07-24] MEDS: Morphine 4 MG/ML VIAL SLOW IVP PRN ×2 (09:01→12:57)
[2021-07-24] MEDS: DorzolamidE/Timolol 2%/0.5% Ophth Soln 10 ml Bottle R EYE SCH ×3 (09:08→20:41)
[2021-07-24] MEDS ORDERED: Heparin 1,000 UNITS/ML VIAL ONE (09:18)
[2021-07-24] MEDS: HumaLOG 300 UNITS/3 ML VIAL SC PRN (13:50)
[2021-07-24] MEDS ORDERED: traMADol HCl 50 MG TAB ONE (14:35)
[2021-07-24] MEDS ORDERED: GoLYTELY 4,000 ml Bottle PO SCH (15:30)
[2021-07-24] MEDS: Sodium Chloride 0.9% 1,000 ML IV SCH (17:16)
[2021-07-24] MEDS: Latanoprost 0.005% Ophth Soln 2.5 ml Bottle R EYE SCH (20:41)
[2021-07-24] MEDS: Atorvastatin Calcium 20 MG TAB PO SCH (20:41)
[2021-07-25] MEDS: Piperacillin/Tazobactam 3.375 GM in Sodium Chloride 0.9% 100 ML IVPB SCH ×3 (01:07→16:45)
[2021-07-25] MEDS: Acetaminophen 325 MG TAB PO PRN (02:07)
[2021-07-25 05:43] LABS: #Eosinphils 0.1 thou/uL (0.0-0.7); #Lymphocytes 1.3 thou/uL (1.20-3.40); #Monocytes 0.7 thou/uL (0.11-0.59); #Neutrophils 4.6 thou/uL (1.40-6.50); %Basophils 0.2 % (0.0-1.0); %Eosinophils 0.8 % (0.0-10.0); %Lymphocytes 19.1 % (21.0-51.0); %Monocytes 10.9 % (0.0-10.0); Hemoglobin 8.8 g/dL (12.0-16.0); Mean Corpuscular HGB CONC 32.8 g/dL (32.0-36.0); Mean Corpuscular Hemoglobin 31.6 pg (27.0-31.0); Mean Corpuscular Volume 96.5 fL (78.0-98.0); Mean Platelet Volume 7.6 fL (7.4-10.4); Platelet Count 280 thou/uL (130-400); RBC Distribution Width 14.5 % (11.5-14.5); Red Blood Cell (RBC) Count 2.78 mill/uL (4.20-5.40); White Blood Cell (WBC) Count 6.7 thou/uL (4.8-10.8)
[2021-07-25] MEDS: Sodium Chloride 0.9% 1,000 ML IV SCH ×2 (05:53→12:20)
[2021-07-25 06:01] LABS: Anion Gap 9 mmol/L (10-20); BUN (Urea Nitrogen) 10 mg/dL (9.8-20.1); Calc. Creatinine Clearance 97 mL/min (70-130); Calcium 7.7 mg/dL (7.8-10.44); Carbon Dioxide 24 mmol/L (23-31); Chloride 111 mmol/L (98-107); Glucose 135 mg/dL (80-115); Potassium 4.2 mmol/L (3.5-5.1); Sodium 140 mmol/L (136-145)
[2021-07-25] MEDS ORDERED: Famotidine/PF 20 mg/2ml Vial ONE (09:17)
[2021-07-25] MEDS ORDERED: Midazolam HCl 2 mg/2 ml Vial ONE (09:17)
[2021-07-25] MEDS ORDERED: PROPOFOL 200 MG/20 ML VIAL ONE (10:15)
[2021-07-25] MEDS: Enoxaparin Sodium 40 MG/0.4 ML SYRINGE SC SCH (11:52)
[2021-07-25] MEDS: Aspirin 81 mg Enteric Coated Tablet PO SCH (11:53)
[2021-07-25] MEDS: DorzolamidE/Timolol 2%/0.5% Ophth Soln 10 ml Bottle R EYE SCH ×3 (11:53→21:40)
[2021-07-25] MEDS: Ascorbic Acid 500 mg Chewable Tablet PO SCH (11:53)
[2021-07-25] MEDS: Zinc Sulfate 220 MG CAP PO SCH (11:54)
[2021-07-25] MEDS: Multivitamin W/ Minerals 1 TAB PO SCH (12:18)
[2021-07-25] MEDS: Neomycin 500 mg Tablet PO SCH ×3 (16:45→21:41)
[2021-07-25] MEDS: metroNIDAZOLE 500 MG TAB PO SCH (16:45)
[2021-07-25] MEDS: Atorvastatin Calcium 20 MG TAB PO SCH (21:40)
[2021-07-25] MEDS: Latanoprost 0.005% Ophth Soln 2.5 ml Bottle R EYE SCH (21:40)
[2021-07-26] MEDS: Piperacillin/Tazobactam 3.375 GM in Sodium Chloride 0.9% 100 ML IVPB SCH ×3 (00:32→18:43)
[2021-07-26] MEDS: metroNIDAZOLE 500 MG TAB PO SCH (00:32)
[2021-07-26] MEDS: Sodium Chloride 0.9% 1,000 ML IV SCH ×2 (02:20→18:44)
[2021-07-26 05:28] LABS: #Eosinphils 0.1 thou/uL (0.0-0.7); #Lymphocytes 1.2 thou/uL (1.20-3.40); #Monocytes 0.7 thou/uL (0.11-0.59); #Neutrophils 4.3 thou/uL (1.40-6.50); %Basophils 0.5 % (0.0-1.0); %Eosinophils 1.1 % (0.0-10.0); %Lymphocytes 18.1 % (21.0-51.0); %Monocytes 11.6 % (0.0-10.0); %Neutrophils 68.7 % (42.0-75.0); Hemoglobin 8.7 g/dL (12.0-16.0); Mean Corpuscular HGB CONC 32.2 g/dL (32.0-36.0); Mean Corpuscular Hemoglobin 31.1 pg (27.0-31.0); Mean Corpuscular Volume 96.4 fL (78.0-98.0); Mean Platelet Volume 7.1 fL (7.4-10.4); Platelet Count 269 thou/uL (130-400); RBC Distribution Width 14.5 % (11.5-14.5); White Blood Cell (WBC) Count 6.3 thou/uL (4.8-10.8)
[2021-07-26 05:50] LABS: Anion Gap 11 mmol/L (10-20); BUN (Urea Nitrogen) 9 mg/dL (9.8-20.1); Calc. Creatinine Clearance 97 mL/min (70-130); Calcium 7.5 mg/dL (7.8-10.44); Carbon Dioxide 19 mmol/L (23-31); Chloride 115 mmol/L (98-107); Glucose 95 mg/dL (80-115); Potassium 3.8 mmol/L (3.5-5.1); Sodium 141 mmol/L (136-145)
[2021-07-26] MEDS: DorzolamidE/Timolol 2%/0.5% Ophth Soln 10 ml Bottle R EYE SCH ×3 (08:14→21:44)
[2021-07-26] MEDS: Aspirin 81 mg Enteric Coated Tablet PO SCH (08:15)
[2021-07-26] MEDS: Multivitamin W/ Minerals 1 TAB PO SCH (08:15)
[2021-07-26] MEDS: Ascorbic Acid 500 mg Chewable Tablet PO SCH (08:16)
[2021-07-26] MEDS: Zinc Sulfate 220 MG CAP PO SCH (08:17)
[2021-07-26] MEDS ORDERED: Midazolam HCl 2 mg/2 ml Vial ONE (12:44)
[2021-07-26] MEDS ORDERED: Fentanyl 100 MCG/2 ML VIAL ONE ×3 (12:44→16:10)
[2021-07-26] MEDS ORDERED: Ketamine 50 MG/ML (10ML VIAL) ONE (12:45)
[2021-07-26] MEDS ORDERED: Glycopyrrolate 0.2 MG/ML 5 ML SYRINGE ONE (13:01)
[2021-07-26] MEDS ORDERED: Dexamethasone 20 MG/5 ML VIAL ONE (13:01)
[2021-07-26] MEDS ORDERED: Ondansetron PF 4 MG/2 ML Vial ONE (13:01)
[2021-07-26] MEDS ORDERED: PROPOFOL 200 MG/20 ML VIAL ONE (13:01)
[2021-07-26] MEDS ORDERED: Rocuronium Bromide 10 MG/ML (10ML VIAL) ONE (13:01)
[2021-07-26] MEDS ORDERED: Lidocaine 1% PF 5 ML VIAL ONE (13:01)
[2021-07-26] MEDS ORDERED: PHENYLEPHRINE-NS 100 MCG/ML 10 ML SYRINGE ONE (13:01)
[2021-07-26] MEDS ORDERED: Meperidine HCl/PF 25 MG/ML VIAL SLOW IVP PRN (15:29)
[2021-07-26] MEDS ORDERED: Promethazine HCl 25 MG/ML VIAL IM PRN ×2 (15:29→16:37)
[2021-07-26] MEDS ORDERED: HYDROmorphone 2 MG/ML VIAL SLOW IVP PRN (15:29)
[2021-07-26] MEDS ORDERED: Promethazine HCl 25 MG/ML VIAL IVPB PRN (15:29)
[2021-07-26] MEDS ORDERED: Ondansetron HCl/PF 4 MG/2 ML Vial IVP PRN (15:29)
[2021-07-26] MEDS ORDERED: Promethazine HCl 25 MG/ML VIAL ONE (16:11)
[2021-07-26] MEDS ORDERED: HYDROmorphone 2 MG/ML VIAL ONE (16:36)
[2021-07-26] MEDS ORDERED: diphenhydrAMINE 50 MG/ML VIAL IM PRN (16:37)
[2021-07-26] MEDS ORDERED: Zolpidem Tartrate 5 MG TAB PO PRN (16:37)
[2021-07-26] MEDS ORDERED: Naloxone HCl 0.4 mg/ml Vial IV PRN (16:37)
[2021-07-26] MEDS ORDERED: Ondansetron PF 4 MG/2 ML Vial IVP PRN (16:37)
[2021-07-26] MEDS ORDERED: diphenhydrAMINE 25 MG CAP PO PRN (16:37)
[2021-07-26] MEDS ORDERED: fentaNYL Citrate/PF 2,000 MCG in Sodium Chloride 0.9% 60 ML IV PRN (16:37)
[2021-07-26] MEDS ORDERED: diphenhydrAMINE 50 MG/ML VIAL IVP PRN (16:37)
[2021-07-26] MEDS ORDERED: Communication Order-Pharmacy FS SCH (16:45)
[2021-07-26] MEDS ORDERED: hydrALAZINE 20 MG/ML VIAL SLOW IVP SCH (18:45)
[2021-07-26] MEDS: Atorvastatin Calcium 20 MG TAB PO SCH (21:43)
[2021-07-26] MEDS: Latanoprost 0.005% Ophth Soln 2.5 ml Bottle R EYE SCH (21:43)
[2021-07-27] MEDS: Piperacillin/Tazobactam 3.375 GM in Sodium Chloride 0.9% 100 ML IVPB SCH ×2 (00:31→09:27)
[2021-07-27] MEDS: Sodium Chloride 0.9% 1,000 ML IV SCH ×5 (06:31→22:30)
[2021-07-27 06:44] LABS: #Basophils 0.1 thou/uL (0.0-0.2); #Lymphocytes 0.7 thou/uL (1.20-3.40); #Monocytes 0.7 thou/uL (0.11-0.59); #Neutrophils 9.9 thou/uL (1.40-6.50); %Basophils 0.5 % (0.0-1.0); %Eosinophils 0.1 % (0.0-10.0); %Lymphocytes 6.6 % (21.0-51.0); %Monocytes 5.7 % (0.0-10.0); %Neutrophils 87.1 % (42.0-75.0); Hemoglobin 8.5 g/dL (12.0-16.0); Mean Corpuscular HGB CONC 30.4 g/dL (32.0-36.0); Mean Corpuscular Hemoglobin 29.8 pg (27.0-31.0); Mean Corpuscular Volume 97.8 fL (78.0-98.0); Mean Platelet Volume 7.1 fL (7.4-10.4); Platelet Count 312 thou/uL (130-400); RBC Distribution Width 14.5 % (11.5-14.5); Red Blood Cell (RBC) Count 2.86 mill/uL (4.20-5.40); White Blood Cell (WBC) Count 11.3 thou/uL (4.8-10.8)
[2021-07-27 07:02] LABS: Anion Gap 17 mmol/L (10-20); BUN (Urea Nitrogen) 17 mg/dL (9.8-20.1); Calc. Creatinine Clearance 80 mL/min (70-130); Calcium 7.1 mg/dL (7.8-10.44); Carbon Dioxide 13 mmol/L (23-31); Chloride 114 mmol/L (98-107); Glucose 196 mg/dL (80-115); Potassium 4.1 mmol/L (3.5-5.1); Sodium 140 mmol/L (136-145)
[2021-07-27] MEDS: Multivitamin W/ Minerals 1 TAB PO SCH (09:26)
[2021-07-27] MEDS: Ascorbic Acid 500 mg Chewable Tablet PO SCH (09:26)
[2021-07-27] MEDS: Aspirin 81 mg Enteric Coated Tablet PO SCH (09:26)
[2021-07-27] MEDS: Zinc Sulfate 220 MG CAP PO SCH (09:27)
[2021-07-27] MEDS: DorzolamidE/Timolol 2%/0.5% Ophth Soln 10 ml Bottle R EYE SCH ×3 (10:00→21:07)
[2021-07-27] MEDS: HumaLOG 300 UNITS/3 ML VIAL SC PRN ×3 (12:06→21:08)
[2021-07-27] MEDS: Atorvastatin Calcium 20 MG TAB PO SCH (21:06)
[2021-07-27] MEDS: Latanoprost 0.005% Ophth Soln 2.5 ml Bottle R EYE SCH (21:07)
[2021-07-27] MEDS: Lantus 1000 UNITS/10 ML VIAL SC SCH (21:09)
[2021-07-28] MEDS: Sodium Chloride 0.9% 1,000 ML IV SCH ×2 (03:26→07:30)
[2021-07-28 04:23] LABS: Anion Gap 9 mmol/L (10-20); BUN (Urea Nitrogen) 21 mg/dL (9.8-20.1); Calc. Creatinine Clearance 77 mL/min (70-130); Calcium 7.6 mg/dL (7.8-10.44); Carbon Dioxide 20 mmol/L (23-31); Chloride 110 mmol/L (98-107); Glucose 244 mg/dL (80-115); Potassium 3.9 mmol/L (3.5-5.1); Sodium 135 mmol/L (136-145)
[2021-07-28 05:47] LABS: Band 11 % (5-11); Hemoglobin 8.7 g/dL (12.0-16.0); Lymphocytes 17 % (21-51); MDiff Complete? YES; Mean Corpuscular HGB CONC 32.2 g/dL (32.0-36.0); Mean Corpuscular Hemoglobin 31.2 pg (27.0-31.0); Mean Corpuscular Volume 97.1 fL (78.0-98.0); Mean Platelet Volume 7.1 fL (7.4-10.4); Neutrophil 69 % (42-75); Platelet Count 298 thou/uL (130-400); RBC Distribution Width 14.6 % (11.5-14.5); Red Blood Cell (RBC) Count 2.77 mill/uL (4.20-5.40); White Blood Cell (WBC) Count 11.4 thou/uL (4.8-10.8)
[2021-07-28 05:48] LABS: Monocytes 3 % (0-10)
[2021-07-28] MEDS: HumaLOG 300 UNITS/3 ML VIAL SC PRN ×4 (06:40→20:51)
[2021-07-28] MEDS: Lantus 1000 UNITS/10 ML VIAL SC SCH ×2 (09:26→20:51)
[2021-07-28] MEDS: Ascorbic Acid 500 mg Chewable Tablet PO SCH (09:27)
[2021-07-28] MEDS: DorzolamidE/Timolol 2%/0.5% Ophth Soln 10 ml Bottle R EYE SCH ×3 (09:27→20:45)
[2021-07-28] MEDS: Aspirin 81 mg Enteric Coated Tablet PO SCH (09:27)
[2021-07-28] MEDS: Zinc Sulfate 220 MG CAP PO SCH (09:27)
[2021-07-28] MEDS: Multivitamin W/ Minerals 1 TAB PO SCH (09:27)
[2021-07-28] MEDS ORDERED: Sodium Chloride 0.9% 1,000 ML IV SCH (14:16)
[2021-07-28] MEDS: Atorvastatin Calcium 20 MG TAB PO SCH (20:47)
[2021-07-28] MEDS: Latanoprost 0.005% Ophth Soln 2.5 ml Bottle R EYE SCH (20:48)
[2021-07-29] MEDS: Zinc Sulfate 220 MG CAP PO SCH (08:59)
[2021-07-29] MEDS: Multivitamin W/ Minerals 1 TAB PO SCH (08:59)
[2021-07-29] MEDS: Aspirin 81 mg Enteric Coated Tablet PO SCH (08:59)
[2021-07-29] MEDS: Ascorbic Acid 500 mg Chewable Tablet PO SCH (09:00)
[2021-07-29] MEDS: DorzolamidE/Timolol 2%/0.5% Ophth Soln 10 ml Bottle R EYE SCH ×3 (09:00→22:19)
[2021-07-29] MEDS: Lantus 1000 UNITS/10 ML VIAL SC SCH ×3 (09:01→22:20)
[2021-07-29] MEDS ORDERED: HYDROcodone/Acetaminophen 5/325 mg Tablet PO PRN ×2 (16:16)
[2021-07-29] MEDS ORDERED: Ibuprofen 600 MG TAB PO PRN (16:16)
[2021-07-29] MEDS ORDERED: Acetaminophen 500 MG TAB PO PRN (16:16)
[2021-07-29] MEDS ORDERED: traMADol HCl 50 MG TAB PO PRN (16:16)
[2021-07-29] MEDS ORDERED: Acetaminophen 500 MG TAB PO SCH (16:30)
[2021-07-29] MEDS ORDERED: Ibuprofen 800 MG TAB PO SCH (16:30)
[2021-07-29] MEDS: HumaLOG 300 UNITS/3 ML VIAL SC PRN (18:02)
[2021-07-29] MEDS: Atorvastatin Calcium 20 MG TAB PO SCH (22:18)
[2021-07-29] MEDS: Latanoprost 0.005% Ophth Soln 2.5 ml Bottle R EYE SCH (22:23)
[2021-07-30] MEDS: Ascorbic Acid 500 mg Chewable Tablet PO SCH (08:47)
[2021-07-30] MEDS: Aspirin 81 mg Enteric Coated Tablet PO SCH (08:48)
[2021-07-30] MEDS: Zinc Sulfate 220 MG CAP PO SCH (08:48)
[2021-07-30] MEDS: Multivitamin W/ Minerals 1 TAB PO SCH (08:48)
[2021-07-30] MEDS: DorzolamidE/Timolol 2%/0.5% Ophth Soln 10 ml Bottle R EYE SCH ×3 (08:55→20:17)
[2021-07-30] MEDS: Lantus 1000 UNITS/10 ML VIAL SC SCH ×2 (08:56→20:16)
[2021-07-30 09:13] LABS: #Eosinphils 0.2 thou/uL (0.0-0.7); #Lymphocytes 1.2 thou/uL (1.20-3.40); #Monocytes 0.9 thou/uL (0.11-0.59); #Neutrophils 9.7 thou/uL (1.40-6.50); %Basophils 0.1 % (0.0-1.0); %Eosinophils 1.5 % (0.0-10.0); %Lymphocytes 9.8 % (21.0-51.0); %Monocytes 7.3 % (0.0-10.0); %Neutrophils 81.3 % (42.0-75.0); Hemoglobin 8.8 g/dL (12.0-16.0); Mean Corpuscular HGB CONC 31.1 g/dL (32.0-36.0); Mean Corpuscular Hemoglobin 29.7 pg (27.0-31.0); Mean Corpuscular Volume 95.4 fL (78.0-98.0); Platelet Count 262 thou/uL (130-400); RBC Distribution Width 14.3 % (11.5-14.5); Red Blood Cell (RBC) Count 2.95 mill/uL (4.20-5.40)
[2021-07-30 09:28] LABS: ALT (SGPT) 9 U/L (8-55); AST (SGOT) 11 U/L (5-34); Albumin 2.1 g/dL (3.4-4.8); Alkaline Phosphatase 75 U/L (40-110); Anion Gap 5 mmol/L (10-20); BUN (Urea Nitrogen) 14 mg/dL (9.8-20.1); Bilirubin, Total 0.3 mg/dL (0.2-1.2); Calc. Creatinine Clearance 111 mL/min (70-130); Calcium 7.6 mg/dL (7.8-10.44); Carbon Dioxide 24 mmol/L (23-31); Chloride 114 mmol/L (98-107); Globulin 3.1 g/dL (2.4-3.5); Glucose 155 mg/dL (80-115); Potassium 3.3 mmol/L (3.5-5.1); Protein, Total 5.2 g/dL (5.8-8.1); Sodium 140 mmol/L (136-145)
[2021-07-30] MEDS: HumaLOG 300 UNITS/3 ML VIAL SC PRN ×2 (13:17→18:54)
[2021-07-30] MEDS: Latanoprost 0.005% Ophth Soln 2.5 ml Bottle R EYE SCH (20:17)
[2021-07-30] MEDS: Atorvastatin Calcium 20 MG TAB PO SCH (20:17)
[2021-07-31] MEDS: Zinc Sulfate 220 MG CAP PO SCH (09:02)
[2021-07-31] MEDS: Aspirin 81 mg Enteric Coated Tablet PO SCH (09:02)
[2021-07-31] MEDS: Multivitamin W/ Minerals 1 TAB PO SCH (09:03)
[2021-07-31] MEDS: Ascorbic Acid 500 mg Chewable Tablet PO SCH (09:03)
[2021-07-31] MEDS: DorzolamidE/Timolol 2%/0.5% Ophth Soln 10 ml Bottle R EYE SCH ×3 (09:16→20:15)
[2021-07-31] MEDS: Lantus 1000 UNITS/10 ML VIAL SC SCH ×2 (09:17→20:15)
[2021-07-31 09:34] LABS: #Eosinphils 0.2 thou/uL (0.0-0.7); #Lymphocytes 1.2 thou/uL (1.20-3.40); #Monocytes 0.8 thou/uL (0.11-0.59); #Neutrophils 9.8 thou/uL (1.40-6.50); %Basophils 0.1 % (0.0-1.0); %Eosinophils 1.5 % (0.0-10.0); %Monocytes 6.6 % (0.0-10.0); %Neutrophils 81.8 % (42.0-75.0); Hemoglobin 8.9 g/dL (12.0-16.0); Mean Corpuscular HGB CONC 31.8 g/dL (32.0-36.0); Mean Corpuscular Hemoglobin 29.9 pg (27.0-31.0); Mean Corpuscular Volume 94.1 fL (78.0-98.0); Mean Platelet Volume 7.2 fL (7.4-10.4); Platelet Count 280 thou/uL (130-400); RBC Distribution Width 14.8 % (11.5-14.5); Red Blood Cell (RBC) Count 2.96 mill/uL (4.20-5.40); White Blood Cell (WBC) Count 11.9 thou/uL (4.8-10.8)
[2021-07-31 09:49] LABS: ALT (SGPT) 11 U/L (8-55); AST (SGOT) 11 U/L (5-34); Albumin 2.2 g/dL (3.4-4.8); Alkaline Phosphatase 76 U/L (40-110); Anion Gap 10 mmol/L (10-20); BUN (Urea Nitrogen) 12 mg/dL (9.8-20.1); Bilirubin, Total 0.3 mg/dL (0.2-1.2); Calc. Creatinine Clearance 103 mL/min (70-130); Calcium 7.5 mg/dL (7.8-10.44); Carbon Dioxide 20 mmol/L (23-31); Chloride 114 mmol/L (98-107); Globulin 3.2 g/dL (2.4-3.5); Glucose 164 mg/dL (80-115); Potassium 3.2 mmol/L (3.5-5.1); Protein, Total 5.4 g/dL (5.8-8.1); Sodium 141 mmol/L (136-145)
[2021-07-31] MEDS ORDERED: Potassium Chloride 20 MEQ TAB PO SCH (10:00)
[2021-07-31] MEDS: HumaLOG 300 UNITS/3 ML VIAL SC PRN ×2 (11:05→16:53)
[2021-07-31] MEDS: Atorvastatin Calcium 20 MG TAB PO SCH (20:15)
[2021-07-31] MEDS: Latanoprost 0.005% Ophth Soln 2.5 ml Bottle R EYE SCH (20:15)
[2021-08-01] MEDS: Zinc Sulfate 220 MG CAP PO SCH (09:19)
[2021-08-01] MEDS: Aspirin 81 mg Enteric Coated Tablet PO SCH (09:19)
[2021-08-01] MEDS: Multivitamin W/ Minerals 1 TAB PO SCH (09:19)
[2021-08-01] MEDS: Ascorbic Acid 500 mg Chewable Tablet PO SCH (09:19)
[2021-08-01] MEDS: Lantus 1000 UNITS/10 ML VIAL SC SCH (09:23)
[2021-08-01] MEDS: DorzolamidE/Timolol 2%/0.5% Ophth Soln 10 ml Bottle R EYE SCH (09:24)
[2021-08-01 13:04] VITALS: BP 133/69; TEMP 99.8
[2021-08-01] MEDS: HumaLOG 300 UNITS/3 ML VIAL SC PRN (14:10)
== END 2021-08-01 16:13 | disposition home health service (06) | DRG 902 ==
LOC: 2NO 16:44 → SURG A 07-23 20:55
PROVIDERS: ADMIT Internal Medicine; ATTEND Internal Medicine
PROC: 02HV33Z Insertion of Infusion Device into Superior Vena Cava, Percutaneous Approach (ICD-10-PCS; 2021-07-23)
PROC: B5181ZA Fluoroscopy of Superior Vena Cava using Low Osmolar Contrast, Guidance (ICD-10-PCS; 2021-07-23)
PROC: B548ZZA Ultrasonography of Superior Vena Cava, Guidance (ICD-10-PCS; 2021-07-23)
PROC: 0DJD8ZZ Inspection of Lower Intestinal Tract, Via Natural or Artificial Opening Endoscopic (ICD-10-PCS; 2021-07-25)
PROC: 0DBF0ZZ Excision of Right Large Intestine, Open Approach (ICD-10-PCS; principal; 2021-07-26)
PROC: 0JD80ZZ Extraction of Abdomen Subcutaneous Tissue and Fascia, Open Approach (ICD-10-PCS; 2021-07-26)
PROC: 0DBB0ZZ Excision of Ileum, Open Approach (ICD-10-PCS; 2021-07-26)
PROC: 0JB80ZZ Excision of Abdomen Subcutaneous Tissue and Fascia, Open Approach (ICD-10-PCS; 2021-07-26)
DX: T81.83XA Persistent postprocedural fistula, initial encounter (principal); K63.2 Fistula of intestine; L02.211 Cutaneous abscess of abdominal wall; N39.0 Urinary tract infection, site not specified; I50.32 Chronic diastolic (congestive) heart failure; L03.311 Cellulitis of abdominal wall; I13.0 Hypertensive heart and chronic kidney disease with heart failure and stage 1 through stage 4 chronic kidney disease, or unspecified chronic kidney disease; Z68.41 Body mass index [BMI] 40.0-44.9, adult; K52.1 Toxic gastroenteritis and colitis; Y83.2 Surgical operation with anastomosis, bypass or graft as the cause of abnormal reaction of the patient, or of later complication, without mention of misadventure at the time of the procedure; I25.10 Atherosclerotic heart disease of native coronary artery without angina pectoris; E66.01 Morbid (severe) obesity due to excess calories; I87.2 Venous insufficiency (chronic) (peripheral); E11.51 Type 2 diabetes mellitus with diabetic peripheral angiopathy without gangrene; B96.20 Unspecified Escherichia coli [E. coli] as the cause of diseases classified elsewhere; E78.5 Hyperlipidemia, unspecified; N18.30 Chronic kidney disease, stage 3 unspecified; E11.22 Type 2 diabetes mellitus with diabetic chronic kidney disease; H40.9 Unspecified glaucoma; T36.0X5A Adverse effect of penicillins, initial encounter; Z90.49 Acquired absence of other specified parts of digestive tract; Z91.09 Other allergy status, other than to drugs and biological substances; Z79.899 Other long term (current) drug therapy; Z79.82 Long term (current) use of aspirin; Z79.84 Long term (current) use of oral hypoglycemic drugs; Z79.4 Long term (current) use of insulin; Z95.5 Presence of coronary angioplasty implant and graft; Z95.1 Presence of aortocoronary bypass graft; Z95.0 Presence of cardiac pacemaker; Z80.3 Family history of malignant neoplasm of breast; Z98.890 Other specified postprocedural states
CPT/HCPCS: 36415; 36416; 36569; 80048; 80053; 83880; 84484; 85025; 85610; 85730; 87045; 87046; 87324; 87328; 87329; 87427; 87449; 88307; 93005; 93010; 93306; C1751; J0360; J1100; J1170; J1644; J1650; J1815; J2250; J2270; J2405; J2543; J2550; J2704; J3010; J3490; J7050; S0028